=== PATIENT | female | born 2000 | race Asian ===

== ENCOUNTER 2019-11-29 06:56 | Observation (INO) | payer MEDICAID, SELFPAY ==
[2019-11-29] VITALS (19 sets, daily range): BP systolic 101–144; BP diastolic 57–86; PULSE 89–124; RESP 16–20; TEMP 36.6–37.2; O2SAT 96–100; BMI 35.4
--- NOTE | 2019-11-29 | US_ITS ---
WS: [id number] ULTRASOUND PELVIS TECHNIQUE: Transvaginal. CLINICAL INFORMATION: RT HEMORR CYST : No. COMPARISON: None. FINDINGS: Uterus Orientation: Anteverted. Size: 6.3 x 3.5 x 4.1 cm Masses: None. Cervix: 2.7 cm normal Endometrium: Normal. Endometrium thickness: 0.94 cm. Adnexa: Hemorrhagic cyst measuring 1.3 x 1.4 x 1.3 cm Right ovary size: 3.5 x 3.5 x 2.5 cm Left ovary size: 2.6 x 1.6 x 2.8 cm. Free fluid: Moderate amount of free fluid about the right ovary extending into the cul-de-sac with so me internal debris likely due to ruptured hemorrhagic cyst. Other findings: None. US/US transvaginal [id number] IMPRESSION: 1. Presumed recently ruptured right hemorrhagic cyst with moderate amount of f ree fluid/hemorrhagic debris about the right ovary extending into the cul-de-sa c. Free fluid measures approximately 5.1 x 3.2 x 4.1 cm 2. Normal left ovary. 3. Endometrium is normal measuring 9 mm.
--- NOTE | 2019-11-29 07:19 | XR_ITS ---
WS: [id number] CHEST XRAY TECHNIQUE: Portable chest. CLINICAL INFORMATION: chest pain COMPARISON: None. FINDINGS: Heart: Normal cardiac silhouette. Lungs: No acute pulmonary infiltrates. Elevation left hemidiaphragm. Bones: Normal visualized bony structures. XR/XR chest 1V portable [id number] IMPRESSION: Slight elevation left hemidiaphragm. No acute pulmonary infiltrates.
--- NOTE | 2019-11-29 07:20 | ED_ITS ---
HPI - Chest Pain General: Chief Complaint: General Medical Stated Complaint: L SIDE PAIN Time Seen by Provider: 11/29/19 07:02 Source: patient Mode of arrival: ambulatory Limitations: no limitations History of Present Illness: HPI narrative: Patient is a 19-year-old female who presents to the ED today with complaints of left-sided chest pain that began several hours ago after it awoke her from sleep. She describes the pain in her left lower lateral chest. Pain seems to be worse with deep inhalation and lying down. She reports a little nausea this morning with no vomiting. Her bowel movements and urinary habits have been normal. She does not feel short of breath. She states she has had one previous episode of similar symptoms and diagnosed with costochondritis. She has not been coughing. No fevers. MD complaint: chest pain Onset (ago): hour(s) Timing of current episode: episodic and constant Onset: during rest Pain location: left chest Pain radiation: none Severity: moderate Quality: sharp Relieving factors: nothing Exacerbating factors: supine Associated symptoms: Reports nausea; Deny abdominal pain, dyspnea, fever(s), palpitations, syncope or vomiting Treatment prior to arrival: none Risk Factors: Coronary artery disease risk factors: none Thoracic aortic dissection risk factors: none Review of Systems General: Reports: 10 or more systems reviewed and unremarkable except in HPI and below Const: Denies: fever(s), chills, body aches, fatigue or malaise Eyes: Denies: change in vision or blurry vision ENMT: Denies: throat pain, enlarged tonsils or odynophagia Card: Reports: chest pain; Denies: palpitations, irregular heart rhythm, edema, swelling of feet/ankles, lightheadedness, syncope, pre-syncope, dyspnea on exertion, leg pain with exe rtion or acrocyanosis Resp: Reports: pain on inspiration; Denies: dyspnea, productive cough, non-productive cough, change in phlegm color, hemoptysis or chest congestion GI: Reports: nausea; Denies: abdominal pain, vomiting, heartburn or diarrhea : Denies: flank pain, difficulty voiding, dysuria, urinary frequency, urinary urgency or urinary hesitancy Musc: Denies: neck pain, back pain or joint pain Skin/Breast: Denies: rash Neuro: Denies: headache(s), numbness in extremities, weakness in extremities or sensory changes PFSH ED PFSH: Social History Smoking and tobacco status: never smoked Female Reproductive History: Date of last menstrual period: 11/06/19 Physical Exam Const: COMMON NORMALS: no acute distress, patient oriented x3, no limitations and alert GENERAL APPEARANCE: anxious HENMT: COMMON NORMALS: normocephalic and atraumatic HEAD & SCALP: normocephalic and atraumatic Chest: COMMONS NORMALS: normal inspection of the chest and normal palpation of entire chest wall OTHER: pt points to left lateral lower chest wall as area of pain but this does not seem to be reproducible Resp: COMMON NORMALS: normal respiratory effort and clear to auscultation bilaterally AUSCULTATION: clear to auscultation bilaterally Cardio: COMMON NORMALS: regular rhythm RATE: tachycardic RHYTHM: regular rhythm GI: COMMON NORMALS: Normal to inspection, nondistended, normoactive bowel sounds present, Soft to palpation, non-tender, No hepatosplenomegaly present and no masses PALPATION: Yes Soft to palpation and Yes No hepatosplenomegaly present RECTAL EXAM: heme negative stool : COMMON NORMALS: Yes no CVA tenderness BLADDER/KIDNEY EXAM: Yes no CVA tenderness Back/Pelvis: COMMON NORMALS: no CVA tenderness Extremity: COMMON NORMALS: normal to inspection Neuro: COMMON NORMALS: patient oriented x3 SENSORIUM/ORIENTATION: Yes alert Skin: COMMON NORMALS: no rashes or lesions noted GENERAL SKIN EXAM: no rashes or lesions noted Course ED course: Patient's CBC coming back with a critical level of a hemoglobin of 6.3. Patient has no complaints of dark or tarry stools. She is not having any hematochezia or hematemesis. When questioned directly she does report getting short of breath more so than usual and feeling lightheaded/dizzy occasionally but states this has been present over the past few weeks. CBC was redrawn and to confirm abnormal findings. Repeat CBC showed a hemoglobin of 6.0. Patient was typed and screened and will have 2 units of blood transfused. I will scan abdomen to rule out possible splenic injury or other etiologies. Patient states menstrual cycles are irregular but states that she on average bleeds approximately 5 days a month and does not describe the blood loss as heavy. Consultations: Consultation #1: Dr. Navarrete spoke to Dr. Tim for admiss ion Consultation #2: Dr. Rivera regarding hemorrhagic cyst Consultation #3: Dr. Navarrete spoke to Dr. Desai about possibility of exploratory lap who stated there was no indication as based on her CT scan there is no bleeding in her abdomen to account for her hemoglobin Additional Consultation(s): I spoke to Dr. Moreno to inform her of general surgery and GALLERY INTERN consults. We will obtain US of her abdomen as well as manual differential and peripheral smear. Vital Signs: Vital signs: Vital Signs Temperature 98.4 F 11/29/19 11:30 Pulse Rate 91 11/29/19 11:43 Respiratory Rate 17 11/29/19 10:30 Blood Pressure 144/86 11/29/19 11:43 Pulse Oximetry 100 11/29/19 11:43 MDM - Chest Pain 2 MDM Narrative: Medical decision making narrative: CT scan showing small R hemorrhagic cyst with small amount of free fluid in pelvis. Dr. Navarrete spoke to Dr. Tim for admission due to severe anemia and she requested GALLERY INTERN consult. I spoke to Dr. Rivera who did not feel this was relevant to pts hemoglobin of 6.0 especially since she has absolutely no lower pelvic pain. US abdomen and TV ultrasound showing same hemorrhagic R ovarian cyst with fluid collection measuring 5x4cm. I spoke to radiologist Dr. Jalloh who assured me th ere was no significant fluid to account for a hemoglobin of 6.0. Dr. Garrison is reviewing pts peripheral smear currently. Differential is back. Patient is stable to go the floor for further workup by hospitalist and hematology Lab Data: Labs: Lab Results 11/29/19 11/29/19 11/29/19 Range/Units 07:30 07:30 07:30 WBC 13.7 H (4.0-10.0) 10^3/ uL Corrected WBC RBC 4.46 (4.1-5.3) 10^6/u L Hgb 6.3 L* (11.5-15.3) g/dL Hct 26.2 L (37.0-47.0) % MCV 58.7 L (81-99) fL MCH 14.1 L (28.0-34.0) pg MCHC 24.0 L (30.0-36.0) g/dL RDW 19.5 H (12.1-15.1) % Plt Count 786 H (130-400) 10^3/c mm MPV 8.6 (7.4-10.4) fL Gran % Neut % (Auto) 63.9 % Lymph % (Auto) 25.0 % [place] % (Auto) 7.8 % Eos % (Auto) 2.0 % Baso % (Auto) 0.7 % Neut # (Auto) 8.7 H (1.8-7.7) 10^3/u L Lymph # (Auto) 3.4 (0.8-4.8) 10^3/u L [place] # (Auto) 1.1 H (0.2-0.9) 10^3/u L Eos # (Auto) 0.3 (0.0-0.8) 10^3/u L Baso # (Auto) 0.1 (0.0-0.1) 10^3/u L Absolute Gran (aut o) Nucleated RBC % (a uto) 0.3 % Total Counted 100 (0-100) Segmented Neutroph ils 75 % Band Neutrophils 3.0 % Lymphocytes (Manua l) 16 % Monocytes (Manual) 5.0 % Absolute Monocytes 0.7 H (0.1-0.6) 10^3/c mm Eosinophils (Manua l) 1 % Absolute Eosinophi ls 0.1 (0.0-0.7) 10^3/c mm Nucleated RBCs # 0.0 /100WBC Platelet Estimate Increased H (Normal) Hypochromasia 3+ H Poikilocytosis 1+ H Anisocytosis 2+ H Microcytosis 2+ H D-Dimer 0.55 (0-0.59) ug/mIFE U Sodium 139 (136-145) mmol/L Potassium 3.9 (3.5-5.1) mmol/L Chloride 100 (98-107) mmol/L Carbon Dioxide 25 (22-29) mmol/L Anion Gap 17.9 (5-19) BUN 13 (6-20) mg/dL Creatinine 0.6 (0.5-0.9) mg/dL GFR Calculation 126.2 (90-130) mL/min Glucose 113 (65-115) mg/dL Calculated Osmolal ity 285 (285-295) mOsm/k g Calcium 9.8 (8.5-10.5) mg/dL Iron (37-145) ug/dL TIBC mcg/dl % Saturation (20-50) % Unsat Iron Binding (112-347) ug/dL Total Bilirubin 0.3 (0.15-1.2) mg/dL AST 10 (0-32) U/L ALT 7 (0-33) U/L Alkaline Phosphata se 46 (35-105) IU/L Total Protein 8.2 (6.6-8.7) g/dL Albumin 4.4 (3.5-5.2) g/dL Globulin 3.8 (1.3-4.6) g/dL Lipase 45 (13-60) U/L Urine Color (Yellow) Urine Appearance (CLEAR) Urine pH (5-7) Ur Specific Gravit y (1.005-1.030) Urine Protein (Negative) Urine Glucose (UA) (Normal) Urine Ketones (Negative) Urine Blood (Negative) Urine Nitrate (Negative) Urine Bilirubin (NEGATIVE) Urine Urobilinogen (Negative) mg/dL Ur Leukocyte Sylvia ase (Negative) Urine RBC (0-2) /hpf Urine WBC (0-5) /hpf Ur Squamous Epith Cells (0-5) Urine Bacteria (NONE) Urine HCG, Qual (Negative) Blood Type Rho(D) Type Antibody Screen Crossmatch 11/29/19 11/29/19 11/29/19 Range/Units 07:30 07:52 07:55 WBC (4.0-10.0) 10^3/ uL Corrected WBC RBC (4.1-5.3) 10^6/u L Hgb (11.5-15.3) g/dL Hct (37.0-47.0) % MCV (81-99) fL MCH (28.0-34.0) pg MCHC (30.0-36.0) g/dL RDW (12.1-15.1) % Plt Count (130-400) 10^3/c mm MPV (7.4-10.4) fL Gran % Neut % (Auto) % Lymph % (Auto) % [place] % (Auto) % Eos % (Auto) % Baso % (Auto) % Neut # (Auto) (1.8-7.7) 10^3/u L Lymph # (Auto) (0.8-4.8) 10^3/u L [place] # (Auto) (0.2-0.9) 10^3/u L Eos # (Auto) (0.0-0.8) 10^3/u L Baso # (Auto) (0.0-0.1) 10^3/u L Absolute Gran (aut o) Nucleated RBC % (a uto) % Total Counted (0-100) Segmented Neutroph ils % Band Neutrophils % Lymphocytes (Manua l) % Monocytes (Manual) % Absolute Monocytes (0.1-0.6) 10^3/c mm Eosinophils (Manua l) % Absolute Eosinophi ls (0.0-0.7) 10^3/c mm Nucleated RBCs # /100WBC Platelet Estimate (Normal) Hypochromasia Poikilocytosis Anisocytosis Microcytosis D-Dimer (0-0.59) ug/mIFE U Sodium (136-145) mmol/L Potassium (3.5-5.1) mmol/L Chloride (98-107) mmol/L Carbon Dioxide (22-29) mmol/L Anion Gap (5-19) BUN (6-20) mg/dL Creatinine (0.5-0.9) mg/dL GFR Calculation (90-130) mL/min Glucose (65-115) mg/dL Calculated Osmolal ity (285-295) mOsm/k g Calcium (8.5-10.5) mg/dL Iron 8 L (37-145) ug/dL TIBC 390 mcg/dl % Saturation 2.0 L (20-50) % Unsat Iron Binding 382 H (112-347) ug/dL Total Bilirubin (0.15-1.2) mg/dL AST (0-32) U/L ALT (0-33) U/L Alkaline Phosphata se (35-105) IU/L Total Protein (6.6-8.7) g/dL Albumin (3.5-5.2) g/dL Globulin (1.3-4.6) g/dL Lipase (13-60) U/L Urine Color Yellow (Yellow) Urine Appearance Sl hazy (CLEAR) Urine pH 5 (5-7) Ur Specific Gravit y 1.025 (1.005-1.030) Urine Protein Neg (Negative) Urine Glucose (UA) Norm (Normal) Urine Ketones Negative (Negative) Urine Blood Neg (Negative) Urine Nitrate Negative (Negative) Urine Bilirubin Neg (NEGATIVE) Urine Urobilinogen Norm (Negative) mg/dL Ur Leukocyte Sylvia ase Negative (Negative) Urine RBC None (0-2) /hpf Urine WBC Rare (0-5) /hpf Ur Squamous Epith Cells 0-4 H (0-5) Urine Bacteria 1+ H (NONE) Urine HCG, Qual Negative (Negative) Blood Type Rho(D) Type Antibody Screen Crossmatch 11/29/19 11/29/19 11/29/19 Range/Units 08:45 08:45 08:45 WBC 12.5 H (4.0-10.0) 10^3/ uL Corrected WBC Rn Urgent Care RBC 4.11 (4.1-5.3) 10^6/u L Hgb 6.0 L* (11.5-15.3) g/dL Hct 24.3 L (37.0-47.0) % MCV 59.1 L (81-99) fL MCH 14.6 L (28.0-34.0) pg MCHC 24.7 L (30.0-36.0) g/dL RDW 19.2 H (12.1-15.1) % Plt Count 711 H (130-400) 10^3/c mm MPV 8.3 (7.4-10.4) fL Gran % Rn Urgent Care Neut % (Auto) 75.6 % Lymph % (Auto) 14.8 % [place] % (Auto) 6.9 % Eos % (Auto) 1.1 % Baso % (Auto) 0.9 % Neut # (Auto) 9.4 H (1.8-7.7) 10^3/u L Lymph # (Auto) 1.8 (0.8-4.8) 10^3/u L [place] # (Auto) 0.9 (0.2-0.9) 10^3/u L Eos # (Auto) 0.1 (0.0-0.8) 10^3/u L Baso # (Auto) 0.1 (0.0-0.1) 10^3/u L Absolute Gran (aut o) Rn Urgent Care Nucleated RBC % (a uto) 0.3 % Total Counted (0-100) Segmented Neutroph ils % Band Neutrophils % Lymphocytes (Manua l) % Monocytes (Manual) % Absolute Monocytes (0.1-0.6) 10^3/c mm Eosinophils (Manua l) % Absolute Eosinophi ls (0.0-0.7) 10^3/c mm Nucleated RBCs # 0.0 /100WBC Platelet Estimate (Normal) Hypochromasia Poikilocytosis Anisocytosis Microcytosis D-Dimer (0-0.59) ug/mIFE U Sodium (136-145) mmol/L Potassium (3.5-5.1) mmol/L Chloride (98-107) mmol/L Carbon Dioxide (22-29) mmol/L Anion Gap (5-19) BUN (6-20) mg/dL Creatinine (0.5-0.9) mg/dL GFR Calculation (90-130) mL/min Glucose (65-115) mg/dL Calculated Osmolal ity (285-295) mOsm/k g Calcium (8.5-10.5) mg/dL Iron (37-145) ug/dL TIBC mcg/dl % Saturation (20-50) % Unsat Iron Binding (112-347) ug/dL Total Bilirubin (0.15-1.2) mg/dL AST (0-32) U/L ALT (0-33) U/L Alkaline Phosphata se (35-105) IU/L Total Protein (6.6-8.7) g/dL Albumin (3.5-5.2) g/dL Globulin (1.3-4.6) g/dL Lipase (13-60) U/L Urine Color (Yellow) Urine Appearance (CLEAR) Urine pH (5-7) Ur Specific Gravit y (1.005-1.030) Urine Protein (Negative) Urine Glucose (UA) (Normal) Urine Ketones (Negative) Urine Blood (Negative) Urine Nitrate (Negative) Urine Bilirubin (NEGATIVE) Urine Urobilinogen (Negative) mg/dL Ur Leukocyte Sylvia ase (Negative) Urine RBC (0-2) /hpf Urine WBC (0-5) /hpf Ur Squamous Epith Cells (0-5) Urine Bacteria (NONE) Urine HCG, Qual (Negative) Blood Type Cancelled B Positive Rho(D) Type Cancelled Positive Antibody Screen Cancelled Negative Crossmatch See Detail See Detail Imaging Data^: CXR: Radiologist's impression: [address] [address] XRay Report Signed Patient: Alivia Tony Unit #: [id number] : 2000 Age/Sex: 19 / F ADM Date: 11/29/19 Loc: ER Room/Bed: Attending Dr: Ordering Provider/Ordering MD: Denise Mancuso Date of Service: 11/29/19 Procedure(s): XR chest 1V portable [id number] Accession Number(s): [id number] Report Number: [id number] WS: [id number] CHEST XRAY TECHNIQUE: Portable chest. CLINICAL INFORMATION: chest pain COMPARISON: None. FINDINGS: Heart: Normal cardiac silhouette. Lungs: No acute pulmonary infiltrates. Elevation left hemidiaphragm. Bones: Normal visualized bony structures. XR/XR chest 1V portable [id number] IMPRESSION: Slight elevation left hemidiaphragm. No acute pulmonary infiltrates. Dictated By: Juan Carlos Jalloh MD Signed By: Juan Carlos Jalloh MD Signed Date/Time: 11/29/19830 DD/ 7 US abdomen: Radiologist's impression: [address] [address] Ultrasound Report Signed Patient: Alivia Tony #: [id number] : 2000Acct#:[id number] Age/Sex: 19 / FADM Date: 11/29/19 Loc: [facility]/Bed: [facility] Attending Dr: Temi Tim DO Ordering Provider/Ordering MD: Denise Mancuso Date of Service: 11/29/19 Procedure(s): US abdomen limited 53234 Accession Number(s): [id number] Report Number: [id number] WS: [id number] ULTRASOUND ABDOMEN LIMITED CLINICAL INFORMATION: LUQ evaluation isai spleen; also TV to eval for R hemorr cyst COMPARISON: None. FINDINGS: Liver Size: Normal Spleen Splenomegaly: None. Craniocaudal length: 10.3 cm. Left kidney: Normal. Hydronephrosis: None. Size: 10.9 cm x 6.0 cm x 5.0 cm. Abdominal aorta and IVC Visualized portions are normal. Ascites: None. US/US abdomen limited [id number] IMPRESSION: Normal left upper quadrant ultrasound. Spleen is normal. Dictated By:Juan Carlos Jalloh MD Signed By:Juan Carlos Jalloh MDSigned Date/Time:11/29/19 1308 DD/ 1250 CT Abd/Pel: Radiologist's impression: [facility] [address] [place] [address] CT Scan Report Signed Patient: Alivia Tony Unit #: [id number] : 2000 Age/Sex: 19 / F ADM Date: 11/29/19 Loc: ER Room/Bed: Attending Dr: Ordering Provider/Ordering MD: Denise Mancuso Date of Service: 11/29/19 Procedure(s): CT abdomen pelvis w con* [id number] Accession Number(s): [id number] Report Number: [id number] WS: [id number] CT ABDOMEN PELVIS TECHNIQUE: Contrast-enhanced CT of the abdomen and pelvis with coronal and sagittal reformatted images. CLINICAL INFORMATION: L sided upper abdominal/ lower chest pain; severe anemia COMPARISON: None. DLP: 1480.[address] scans at [facility] use at least one of these dose optimization techniques: automated exposure control; mA and/or kV adjustment per patient size (includes targeted exams where dose is matched to clinical indication); or iterative reconstruction. FINDINGS: Mild diffuse fatty infiltration infiltration of the liver. Normal spleen. Pancreas is normal. Adrenal glands are normal. No hydronephrosis. Normal renal parenchymal enhancement. Lung bases are well aerated. Stomach and proximal small bowel appear normal. Normal caliber abdominal aorta. Peripheral enhancing right ovarian hemorrhagic or corpus luteum cyst measuring 1.9 x 1.6 cm. Surrounding fluid about the right ovary with small amount of free fluid in the cul-de-sac. A few prominent lymph nodes in the right lower quadrant likely reactive. Appendix is normal. Normal portal vein and splenic vein. Gallbladder is contracted. No abdominal or pelvic lymphadenopathy. Normal lumbar spine. CT/CT abdomen pelvis w con* [id number] IMPRESSION: 1. Peripheral enhancing right ovarian hemorrhagic or corpus luteum cyst measuring 1.6 x 1.9 cm with surrounding fluid. Associated free fluid in the cul-de-sac. This can be followed up in one to 2 menstrual cycles with ultrasound. 2. Appendix is normal and decompressed. 3. Normal renal parenchymal enhancement. No hydronephrosis. 4. No other significant findings. Dictated By: Juan Carlos Jalloh MD Signed By: Juan Carlos Jalloh MD Signed Date/Time: 11/29/19 1009 DD/ 1005 US TV: Radiologist's impression: [address] [address] Ultrasound Report Signed Patient: Alivia Tony #: [id number] : 2000Acct#:[id number] Age/Sex: Date: 11/29/19 Loc: [facility]/Bed: [facility] Attending [address]: Temi Tim DO Ordering Provider/Ordering MD: Denise Mancuso Date of Service: 11/29/19 Procedure(s): US transvaginal 05895 Accession Number(s): [id number] Report Number: [id number] WS: [id number] ULTRASOUND PELVIS TECHNIQUE: Transvaginal. CLINICAL INFORMATION: RT HEMORR CYST : No. COMPARISON: None. FINDINGS: Uterus Orientation: Anteverted. Size: 6.3 x 3.5 x 4.1 cm Masses: None. Cervix: 2.7 cm normal Endometrium: Normal. Endometrium thickness: 0.94 cm. Adnexa: Hemorrhagic cyst measuring 1.3 x 1.4 x 1.3 cm Right ovary size: 3.5 x 3.5 x 2.5 cm Left ovary size: 2.6 x 1.6 x 2.8 cm. Free fluid: Moderate amount of free fluid about the right ovary extending into the cul-de-sac with some internal debris likely due to ruptured hemorrhagic cyst. Other findings: None. US/US transvaginal [id number] IMPRESSION: 1. Presumed recently ruptured right hemorrhagic cyst with moderate amount of free fluid/hemorrhagic debris about the right ovary extending into the cul-de-sac. Free fluid measures approximately 5.1 x 3.2 x 4.1 cm 2. Normal left ovary. 3. Endometrium is normal measuring 9 mm. Dictated By:Juan Carlos Jalloh MD Signed By:Juan Carlos Jalloh MDSigned Date/Time:11/29/19 1317 Discharge Plan Discharge Patient Disposition: Admitted As Inpatient Admit Provider: Temi Tim Clinical Impression: Microcytic anemia, Hemorrhagic cyst of right ovary Condition: Stable Interventions: ED Discharge Assessment Last Done: 11/29/19 11:43 ED Charges Last Done: 11/29/19 11:43 Coding Level of Care Code ED Tier Lift Truck Operator for Chg Fwd Exam Comprehensive
[2019-11-29 07:41] LABS: Basophils # 0.1 10^3/uL (0.0-0.1); Basophils % 0.7 %; Eosinophils # 0.3 10^3/uL (0.0-0.8); Hematocrit 26.2 % (37.0-47.0); Lymphocytes # 3.4 10^3/uL (0.8-4.8); Mean Corpuscular Hemoglobin 14.1 pg (28.0-34.0); Mean Corpuscular Volume 58.7 fL (81-99); Mean Platelet Volume 8.6 fL (7.4-10.4); Monocytes # 1.1 10^3/uL (0.2-0.9); Monocytes % 7.8 %; Neutrophils # 8.7 10^3/uL (1.8-7.7); Neutrophils % 63.9 %; Nucleated Red Blood Cells % 0.3 %; Platelet Count 786 10^3/cmm (130-400); Red Blood Count 4.46 10^6/uL (4.1-5.3); Red Cell Distribution Width 19.5 % (12.1-15.1); White Blood Count 13.7 10^3/uL (4.0-10.0)
[2019-11-29] MEDS: ketorolac 60 mg/2 mL INJ 30 MG IVP (07:50)
[2019-11-29 07:54] LABS: Alanine Aminotransferase 7 U/L (0-33); Albumin Level 4.4 g/dL (3.5-5.2); Alkaline Phosphatase 46 IU/L (35-105); Anion Gap 17.9 (5-19); Aspartate Amino Transferase 10 U/L (0-32); Blood Urea Nitrogen 13 mg/dL (6-20); Calcium 9.8 mg/dL (8.5-10.5); Carbon Dioxide 25 mmol/L (22-29); Chloride 100 mmol/L (98-107); Globulin 3.8 g/dL (1.3-4.6); Glomerular Filtration Rate 126.2 mL/min (90-130); Glucose 113 mg/dL (65-115); Lipase 45 U/L (13-60); Osmolality Calculated 285 mOsm/kg (285-295); Potassium 3.9 mmol/L (3.5-5.1); Sodium 139 mmol/L (136-145); Total Bilirubin 0.3 mg/dL (0.15-1.2); Total Protein 8.2 g/dL (6.6-8.7)
[2019-11-29 08:07] LABS: Add Urine Microscopic? YES; Bacteria Urine 1+; Bilirubin Urine Neg (NEGATIVE); Blood Urine Neg (Negative); Glucose Urine UA Norm (Normal); Ketones Urine Negative (Negative); Leukocyte Esterase Urine Negative (Negative); Nitrate Urine Negative (Negative); Protein Urine Neg (Negative); Specific Gravity, Urine 1.025 (1.005-1.030); Squamous Epithelial Cell Urine 0-4 (0-5); Urine Appearance SL Hazy (CLEAR); Urine Color Yellow (Yellow); Urobilinogen Urine Norm (Negative); WBC Urine RARE /hpf (0-5); pH Urine 5 (5-7)
[2019-11-29 08:08] LABS: Add Urine Culture? No
[2019-11-29 08:10] LABS: Hemoglobin 6.3 g/dL (11.5-15.3)
[2019-11-29 08:13] LABS: D Dimer 0.55 ug/mIFEU (0-0.59)
--- NOTE | 2019-11-29 08:13 | PC.NURSE ---
KAIT Arnold informed about hemoglobin 6.3.
[2019-11-29 08:50] LABS: Basophils # 0.1 10^3/uL (0.0-0.1); Basophils % 0.9 %; Eosinophils # 0.1 10^3/uL (0.0-0.8); Eosinophils % 1.1 %; Hematocrit 24.3 % (37.0-47.0); Lymphocytes # 1.8 10^3/uL (0.8-4.8); Lymphocytes % 14.8 %; Mean Corpuscular HGB Conc 24.7 g/dL (30.0-36.0); Mean Corpuscular Hemoglobin 14.6 pg (28.0-34.0); Mean Corpuscular Volume 59.1 fL (81-99); Mean Platelet Volume 8.3 fL (7.4-10.4); Monocytes # 0.9 10^3/uL (0.2-0.9); Monocytes % 6.9 %; Neutrophils # 9.4 10^3/uL (1.8-7.7); Neutrophils % 75.6 %; Nucleated Red Blood Cells % 0.3 %; Platelet Count 711 10^3/cmm (130-400); Red Blood Count 4.11 10^6/uL (4.1-5.3); Red Cell Distribution Width 19.2 % (12.1-15.1); White Blood Count 12.5 10^3/uL (4.0-10.0)
--- NOTE | 2019-11-29 09:02 | CT_ITS ---
WS: [id number] CT ABDOMEN PELVIS TECHNIQUE: Contrast-enhanced CT of the abdomen and pelvis with coronal and sagittal reformatted image s. CLINICAL INFORMATION: L sided upper abdominal/ lower chest pain; severe anemia COMPARISON: None. DLP: 1480.[address] scans at [facility] use at least one of these dose optimization techniques: automat ed exposure control; mA and/or kV adjustment per patient size (includes targeted exams where dose is matched to clinical indication); or iterative reconstruction. FINDINGS: Mild diffuse fatty infiltration infiltration of the liver. Normal spleen. Pancreas is normal. Adrenal glands are normal. No hydronephrosis. Normal renal parenchymal enhancement. Lung bases are we ll aerated. Stomach and proximal small bowel appear normal. Normal caliber abdominal aorta. Peripheral enhancing right ovarian hemorrhagic or corpus luteum cyst measuring 1.9 x 1.6 cm. Surround ing fluid about the right ovary with small amount of free fluid in the cul-de-sac. A few prominent ly mph nodes in the right lower quadrant likely reactive. Appendix is normal. Normal portal vein and spl enic vein. Gallbladder is contracted. No abdominal or pelvic lymphadenopathy. Normal lumbar spine. CT/CT abdomen pelvis w con* [id number] IMPRESSION: 1. Peripheral enhancing right ovarian hemorrhagic or corpus luteum cyst measur ing 1.6 x 1.9 cm with surrounding fluid. Associated free fluid in the cul-de-sa c. This can be followed up in one to 2 menstrual cycles with ultrasound. 2. Appendix is normal and decompressed. 3. Normal renal parenchymal enhancement. No hydronephrosis. 4. No other significant findings.
[2019-11-29] MEDS: sodium chloride 0.9% 1,000 ML 999 ML IV (09:22)
[2019-11-29] MEDS: iohexol 300 mg/mL 100 mL Btl IV (09:45)
--- NOTE | 2019-11-29 09:53 | PC.NURSE ---
pt back from CT scan by stretcher with tech
--- NOTE | 2019-11-29 11:06 | US_ITS ---
WS: [id number] ULTRASOUND ABDOMEN LIMITED CLINICAL INFORMATION: LUQ evaluation isai spleen; also TV to eval for R hemorr cyst COMPARISON: None. FINDINGS: Liver Size: Normal Spleen Splenomegaly: None. Craniocaudal length: 10.3 cm. Left kidney: Normal. Hydronephrosis: None. Size: 10.9 cm x 6.0 cm x 5.0 cm. Abdominal aorta and IVC Visualized portions are normal. Ascites: None. US/US abdomen limited [id number] IMPRESSION: Normal left upper quadrant ultrasound. Spleen is normal.
[2019-11-29 11:37] LABS: Absolute Eosinophils 0.1 10^3/cmm (0.0-0.7); Absolute Segmented Neutrophil 10.2 10/cmm (1.6-7.1); Band Neutrophils Absolute 0.4 10^3/cmm (0.0-1.2); Eosinophils 1 %; Lymphocytes 16 %; Monocytes Absolute 0.7 10^3/cmm (0.1-0.6); Segmented Neutrophils 75 %; Total Cells Counted 100 (0-100)
[2019-11-29 11:38] LABS: Hypochromasia 3+; Poikilocytosis 1+
[2019-11-29 11:39] LABS: Anisocytosis 2+; Microcytosis 2+; Platelet Estimate Increased (Normal)
[2019-11-29 11:45] LABS: LAB Peripheral Smear Sent for Review
--- NOTE | 2019-11-29 12:15 | PC.NURSE ---
portable ultrasound at bedside
[2019-11-29 12:48] LABS: Iron 8 ug/dL (37-145); Total Iron Binding Capacity 390 mcg/dl; Unsaturated Iron Binding 382 ug/dL (112-347)
[2019-11-29] MEDS: sodium chloride 0.9% (100 ml) 100 ML 50 ML (15:18)
[2019-11-29] MEDS: acetaminophen 325 mg Tablet 650 MG PO (15:51)
--- NOTE | 2019-11-29 16:23 | PM.HP ---
Providers/Chief Complaint Admitting Physician: Temi Tim DO Primary Care Provider: Rob Benito MD Chief Complaint: ANEMIA FROM UNKNOWN CAUSE History of Present Illness Alivia Tony is a 19 year old female that presented to the emergency department today for dizziness. She stated that she has been having the dizziness over the past couple of weeks. She stated that it began to progress to the concern that she came into the ER today for further evaluation. She stated that she was also having some pain in the left upper quadrant that was worse with deep inspiration. She states that she was evaluated in the ER and told she had severe anemia. She denies any concern for bleeding. She stated that the first day of her last menstrual period was 11/02/2019, they are typically irregular but occur every 4 to 5 weeks, stated that they are heavy for the first couple of days but then become normal, no concern for heavier than average bleeding. Patient reports that she did have an episode last year of melanotic stools, reported black and tarry like stools for a few days but then those resolved. She stated that she takes NSAIDs occasionally but denies any regular NSAID use. She stated that her last regular NSAID use was in the first couple of months of this year when she was diagnosed with costochondritis and was given NSAIDs for 14 days. She did not have any melanotic stools at that time and denies any bright red blood per rectum. She denies any fevers or chills, no sick contacts, no cough or sputum production, no hemoptysis. She denies any weight loss, no weight gain, no night sweats. Patient reports that she does not have any diarrhea or constipation, no epigastric discomfort. She reports that she typically will take in carbohydrates but does eat some meats, not a vegetarian or vegan. Patient was seen and evaluated in the emergency department noted to have concern for anemia and transfused 1 unit of packed red blood cells with a second unit ordered. She had imaging of the abdomen which showed peripheral enhancing right ovarian hemorrhagic or corpus luteal cyst with surrounding fluid, associated free fluid in the cul-de-sac, this was discussed with ROUTE SERVICE REPRESENTATIVE on-call and reported that due to minimal fluid would not likely be contributing to the anemia and no acute concern reported. Review of Systems Const: Denies: fever(s) or chills Eyes: Denies: change in vision ENMT: Denies: nasal congestion Card: Denies: chest pain, palpitations or edema Resp: Denies: dyspnea, productive cough or hemoptysis GI: Denies: abdominal pain, nausea, vomiting, diarrhea, constipation, hematochezia or melena : Denies: dysuria or hematuria Musc: Denies: extremity pain or muscle cramps Skin/Breast: Denies: rash or new lesions Neuro: Reports: dizziness; Denies: headache(s) Psych: Denies: anxiety or depression Endo: Denies: polyuria or hot flashes Edgardo/Lymph: Denies: easy bruising or easy bleeding Medications/Allergies Home Medications Medication Instructions Recorded Confirmed Last Taken Type No Known Home Medications 11/29/19 11/29/19 Unknown History Allergies Allergy/AdvReac Type Severity Reaction Status Date / Time No Known Allergies Allergy Verified 11/29/19 07:20 PFSH Acute PFSH: Surgical History (Updated 11/29/19 @ 16:32 by Temi Tim DO) History of wisdom tooth extraction Family History (Updated 11/29/19 @ 16:33 by Temi Tim DO) Mother Cancer Ovarian Father CAD (coronary artery disease) Sister Anemia Social History Smoking and tobacco status: never smoked Female Reproductive History: Date of last menstrual period: 11/01/19 Supplemental PFSH Information: No past medical history Vitals/I&O/Wt Last Vital Signs Temp 97.8 F 11/29/19 15:46 Pulse 93 11/29/19 15:46 Resp 20 H 11/29/19 15:46 BP 106/69 11/29/19 15:46 Pulse Ox 99 11/29/19 15:46 11/29/19 11/29/19 11/29/19 06:59 14:59 22:59 Intake Total 1000 / 1000 0 / 1000 Balance 1000 / 1000 0 / 1000 Weight last 48 hrs Weight 108.862 kg Physical Exam Const: COMMON NORMALS: patient oriented x3 and alert GENERAL APPEARANCE: cooperative ORIENTATION/CONSCIOUSNESS: Yes awake, Yes oriented to person, Yes oriented to place and Yes oriented to time HENMT: COMMON NORMALS: normocephalic and atraumatic HEAD & SCALP: normocephalic and atraumatic Eye: COMMON NORMALS: Equal, round and reactive pupils present PUPIL: Yes Equal, round and reactive pupils present Neck/C-Spine: COMMON NORMALS: supple GENERAL: Yes normal visual inspection Resp: COMMON NORMALS: normal respiratory effort and clear to auscultation bilaterally EFFORT & INSPECTION: Yes able to speak in complete sentences AUSCULTATION: clear to auscultation bilaterally, no rhonchi and no wheezes Cardio: COMMON NORMALS: regular rate, regular rhythm and No murmurs present (Cardio) RATE: regular rate RHYTHM: regular rhythm GI: COMMON NORMALS: Soft to palpation and non-tender INSPECTION: No abdominal distension AUSCULTATION: Yes normoactive bowel sounds PALPATION: Yes Soft to palpation : COMMON NORMALS: Yes no CVA tenderness BLADDER/KIDNEY EXAM: Yes no CVA tenderness Back/Pelvis: COMMON NORMALS: no CVA tenderness Extremity: COMMON NORMALS: no clubbing, cyanosis or edema and no calf tenderness Neuro: COMMON NORMALS: patient oriented x3, CN's II-XII intact bilaterally, moves all extremities and no focal motor deficits SENSORIUM/ORIENTATION: Yes alert, Yes oriented to person, Yes oriented to place and Yes oriented to time SPEECH: speech normal Psych: COMMON NORMALS: mental status grossly normal and cooperative Skin: COMMON NORMALS: no rashes or lesions noted GENERAL SKIN EXAM: no rashes or lesions noted Data : 11/29/19 08:45 11/29/19 07:30 A&P Assessment and plan (1) Microcytic anemia: Microcytic anemia with concern for iron deficiency Started on iron supplementation Transfuse 2 units of packed red blood cells Recommend EGD and colonoscopy, potentially in the outpatient setting, however with significant anemia discussed with Dr. Desai for consultation and will follow up with recommendations Patient reports history of melanotic stools last year, no further recurrence of this but she does have NSAID use for 2 weeks straight in the beginning of this year. Will start on PPI We will check FOBT Status: Acute (2) Hemorrhagic cyst of right ovary: With minimal free fluid, not likely contributing to anemia This was discussed with ROUTE SERVICE REPRESENTATIVE on-call while patient was in the ED, no acute concerns identified Status: Acute Additional A&P Information Left-sided pain: Patient reports left-sided chest pain with inspiration, will further evaluate with chest x-ray. Ultrasound of the abdomen performed and no evidence of any acute changes to the spleen with normal appearance and no splenomegaly. Patient reported melanotic stools with what sounds to be concerning for a GI bleed approximately 1 year ago, she reports that her last regular NSAID use was for a period of 2 weeks in the beginning of this year should, she cannot recall if it was July, August, or September when she was seen by her primary care provider. Further testing as noted above. Would recommend EGD and colonoscopy, discussed with Dr. Desai for consultation and will follow up with recommendations DVT prophylaxis: SCDs, no pharmacologic prophylaxis due to concern for anemia Diet: Regular diet, NPO at midnight Attestations Medical Necessity Statement*: Patient placed on observation due to concern for microcytic anemia. Expected stay less than 2 midnights Coding Level of Care Code Acute Hand Cigar Making Supervisor for Chg Fwd Diagnoses Microcytic anemia D50.9 Hemorrhagic cyst of right ovary N83.201
--- NOTE | 2019-11-29 16:36 | XRR_ITS ---
PROCEDURE INFORMATION: Exam: XR Chest, 2 Views Exam date and time: 11/29/2019 5:35 PM Age: 19 years old Clinical indication: Other: Left upper rib/chest pain; Patient HX: Pain is worse on inspiration; Additional info: Pleuritic pain, L chest TECHNIQUE: Imaging protocol: XR of the chest Views: 2 views. COMPARISON: CR XR chest 1V portable [id number] 11/29/2019 7:47 AM FINDINGS: Lungs: Unremarkable. No consolidation. Pleural space: Unremarkable. No pleural effusion. No pneumothorax. Heart/Mediastinum: Unremarkable. No cardiomegaly. Bones/joints: Unremarkable. XR/XR chest 2V* [id number] IMPRESSION: No acute findings. Unchanged exam.
--- NOTE | 2019-11-29 17:15 | P.CONIM_ITS ---
Providers/Reason For Consult Consulting Physican/Specialty*: Gigi Desai MD Reason for Consult*: Anemia with history of melena Attending Physician: Temi Tim DO Primary Care Provider: Rob Benito MD History of Present Illness History of Present Illness Chief Complaint: My left side hurts History of present illness: Alivia Tony is a 19 year old female presents to the emergency department with history of left sided torso discomfort, patient denies any trauma, was found on her blood work low H&H with MCV of 59 and was tested negative for occult blood in stools, patient reports history of melena back in last summer that was subsided with conservative measures as a primary care provider prescribed for her some medications likely antacid. She denies history of hematemesis or bleeding per rectum On the CT scan was found to have: 1. Peripheral enhancing right ovarian hemorrhagic or corpus luteum cyst measuring 1.6 x 1.9 cm with surrounding fluid. Associated free fluid in the cul-de-sac. This can be followed up in one to 2 menstrual cycles with ultrasou nd. 2. Appendix is normal and decompressed. 3. Normal renal parenchymal enhancement. No hydronephrosis. 4. No other significant findings. Left upper quadrant ultrasound showed Normal left upper quadrant ultrasound. Spleen is normal. General surgery was consulted for further evaluation due to the patient's iron deficiency anemia and concern for underlying GI pathology to explain her anemia. Review of Systems General: Reports: 10 or more systems reviewed and unremarkable except in HPI a nd below Meds/Allergies Home Medications and Allergies Home Medications Medication Instructions Recorded Confirmed Last Taken Type No Known Home Medications 11/29/19 11/29/19 Unknown History Allergies Allergy/AdvReac Type Severity Reaction Status Date / Time No Known Allergies Allergy Verified 11/29/19 07:20 Current Medications Current Medications Generic Name Dose Route Start Last Admin Trade Name Freq PRN Reason Stop Dose Admin Acetaminophen 650 mg 11/29/19 15:22 11/29/19 15:51 Tylenol PO 650 mg Q6H PRN Administration Mild/Mod Pain Or Temp >/= 101 PFSH Acute PFSH: Surgical History (Updated 11/29/19 @ 16:32 by Temi Tim DO) History of wisdom tooth extraction Family History (Updated 11/29/19 @ 16:33 by Temi Tim DO) Mother Cancer Ovarian Father CAD (coronary artery disease) Sister Anemia Social History Smoking and tobacco status: never smoked Female Reproductive History: Date of last menstrual period: 11/01/19 Vitals/I&O/Wt Last Vital Signs Temp 97.8 F 11/29/19 15:46 Pulse 94 11/29/19 16:57 Resp 20 H 11/29/19 15:46 BP 106/69 11/29/19 15:46 Pulse Ox 100 11/29/19 16:57 11/29/19 11/29/19 11/29/19 06:59 14:59 22:59 Intake Total 1000 / 1000 0 / 1000 Balance 1000 / 1000 0 / 1000 Weight last 48 hrs Weight 240 lb Physical Exam Const: COMMON NORMALS: no acute distress and patient oriented x3 GENERAL APPEARANCE: cooperative ORIENTATION/CONSCIOUSNESS: Yes awake, Yes oriented to person, Yes oriented to place and Yes oriented to time HENMT: COMMON NORMALS: normocephalic HEAD & SCALP: normocephalic Eye: COMMON NORMALS: Equal, round and reactive pupils present and no scleral icterus PUPIL: Yes Equal, round and reactive pupils present Lymph: LYMPHATIC: no lymphadenopathy noted Chest: COMMONS NORMALS: normal inspection of the chest Resp: COMMON NORMALS: normal respiratory effort and clear to auscultation bilaterally AUSCULTATION: clear to auscultation bilaterally Cardio: COMMON NORMALS: S1 normal heart sound present and S2 normal heart sound present; negative for No murmurs present (Cardio) HEART SOUNDS: S1 normal heart sound present and S2 normal heart sound present GI: COMMON NORMALS: Soft to palpation; negative for No hepatosplenomegaly present INSPECTION: Yes normal to inspection PALPATION: Yes Soft to palpation, No Firmness to palpation present (GI), No Tenderness to palpation present (GI), No Guarding due to palpation p resent (GI), No Rigid due to palpation and No No hepatosplenomegaly present Neuro: COMMON NORMALS: patient oriented x3 SENSORIUM/ORIENTATION: Yes oriented to person, Yes oriented to place and Yes oriented to time Psych: COMMON NORMALS: mental status grossly normal Skin: COMMON NORMALS: no rashes or lesions noted GENERAL SKIN EXAM: no rashes or lesions noted A&P Assessment and plan (1) History of melena: After thorough history physical examination and reviewing the chart and images with my personal interpretation, I did rehabilitation services counselor the patient for diagnostic EGD and colonoscopy, perhaps the EGD would cover the potential etiology of the melena yet the colonoscopy to rule out any potential underlying cause for her anemia in additional to the EGD. If the above or negative, I recommendation to obtain a capsule endoscopy down the road. I did talk with the patient's dad Dom over the phone and I did explain for him the above and I did give him the option to discuss with his daughter to determine the timing of performing both the EGD and colonoscopy within the same hospitalization versus as an outpatient, and then they will let me know tomorrow morning rounds if that is the case we will start colon prep tomorrow with the plan to perform EGD and colonoscopy Monday otherwise it will be as an outpatient. Blood transfusion per protocol Medical causes of anemia should be ruled out and hematology consultation should be initiated down the road as an outpatient Assurance and education All questions have been answered and all concerns have been addressed to patient 's satisfaction. Status: Acute Consult Attestations Medical Necessity Statement: Per hospitalist Time Spent in Patient Care: 16 - 35 minutes (>than 50% of time spent in counselling and/or direct pt care on unit) . Coding Level of Care Code Acute Hydroblaster for Chg Fwd Exam Comprehensive Diagnoses History of melena Z87.19
[2019-11-29] MEDS: ferrous sulfate EC 325 mg Tablet PO (17:53)
[2019-11-29] MEDS: pantoprazole DR 40 mg Tablet PO (17:53)
[2019-11-29 18:25] LABS: H. Pylori IgG Antibody Negative (Negative)
[2019-11-29 19:02] LABS: Hematocrit 29.5 % (37.0-47.0); Hemoglobin 8.1 g/dL (11.5-15.3)
[2019-11-30] VITALS: BP 122/80; PULSE 72; RESP 18; TEMP 36.5; O2SAT 96
[2019-11-30 01:15] LABS: Hematocrit 27.8 % (37.0-47.0); Hemoglobin 7.5 g/dL (11.5-15.3)
[2019-11-30 01:25] LABS: INR 1.07 (0.8-1.2)
[2019-11-30 03:55] VITALS: BP 102/64; PULSE 104; RESP 18; TEMP 36.6; O2SAT 98
--- NOTE | 2019-11-30 07:05 | P.PN_ITS ---
Subjective Subjective: Interval history: No acute events overnight and no evidence of hematemesis or hematochezia Patient received total of 2 units of packed RBCs and continues to have low H&H just got better but still low. Patient continues to have stable vital signs no evidence of hypotension or tachycardia Vitals/I&O/Wt Last Vital Signs Temp 97.9 F 11/30/19 03:55 Pulse 104 H 11/30/19 03:55 Resp 18 11/30/19 03:55 BP 102/64 11/30/19 03:55 Pulse Ox 98 11/30/19 03:55 11/29/19 11/30/19 11/30/19 22:59 06:59 14:59 Intake Total 120 / 1120 Balance 120 / 1120 Weight last 48 hrs Weight 241 lb 8 oz Weight 240 lb Physical Exam Narrative: EXAM NARRATIVE: Patient is conscious alert oriented X3 BMI 36 Head and neck examination PERRLA no masses no cervical lymphadenopathy no jaundice Abdomen nontender nondistended soft no organomegaly guarding or rigidity/no signs of peritonitis Extremities no cyanosis no clubbing no edema Data : 11/30/19 07:00 11/30/19 07:00 A&P Assessment and plan (1) History of melena: After further discussion with the patient she elected to have her EGD and colonoscopy done as an outpatient not within the same hospitalization, I respected her wishes and we will plan to have it done as an outpatient. There is no evidence of GI bleeding, from surgical standpoint of view patient can have regular diet Blood transfusion per protocol Medical causes of anemia should be ruled out and hematology consultation should be initiated down the road as an outpatient, to clearly that the patient reports that her older sister has iron deficiency anemia. Assurance and education All questions have been answered and all concerns have been addressed to patient's satisfaction. Status: Acute Attestations Medical Necessity Statement*: Per hospitalist service Time Spent in Patient Care: 16 - 35 minutes (>than 50% of time spent in counselling and/or direct pt care on unit) . Coding Level of Care Code Acute Health Science Specialist for Nikolai Del [facility]illo Diagnoses History of melena Z87.19
[2019-11-30 07:07] LABS: Basophils # 0.1 10^3/uL (0.0-0.1); Eosinophils # 0.3 10^3/uL (0.0-0.8); Eosinophils % 2.7 %; Hematocrit 30.8 % (37.0-47.0); Lymphocytes # 3.5 10^3/uL (0.8-4.8); Lymphocytes % 27.7 %; Mean Corpuscular Hemoglobin 17.4 pg (28.0-34.0); Monocytes % 7.9 %; Neutrophils # 7.6 10^3/uL (1.8-7.7); Neutrophils % 60.5 %; Nucleated Red Blood Cells % 0.3 %; Platelet Count 669 10^3/cmm (130-400); Red Cell Distribution Width 25.9 % (12.1-15.1); White Blood Count 12.6 10^3/uL (4.0-10.0)
[2019-11-30 07:20] VITALS: BP 109/71; PULSE 82; RESP 19; TEMP 36.9; O2SAT 99
[2019-11-30 07:20] LABS: Anion Gap 15.2 (5-19); Blood Urea Nitrogen 11 mg/dL (6-20); Calcium 9.8 mg/dL (8.5-10.5); Carbon Dioxide 22 mmol/L (22-29); Chloride 105 mmol/L (98-107); Glomerular Filtration Rate 126.2 mL/min (90-130); Glucose 87 mg/dL (65-115); Osmolality Calculated 281 mOsm/kg (285-295); Potassium 4.2 mmol/L (3.5-5.1); Sodium 138 mmol/L (136-145)
[2019-11-30] MEDS: pantoprazole DR 40 mg Tablet PO (08:33)
[2019-11-30] MEDS: ferrous sulfate EC 325 mg Tablet PO (08:33)
[2019-11-30 12:00] VITALS: BP 113/75; PULSE 93; RESP 19; TEMP 36.5; O2SAT 99
[2019-11-30 12:10] LABS: Hematocrit 27.5 % (37.0-47.0); Hemoglobin 7.5 g/dL (11.5-15.3)
[2019-11-30 14:05] VITALS: BP 113/75; PULSE 93; RESP 19; TEMP 36.5; O2SAT 99
--- NOTE | 2019-11-30 14:07 | PM.DCS ---
Discharge Providers Date of Admission: 11/29/19 10:51 Date of Discharge: November 30, 2019 Attending Provider at Admission: Temi Tim DO Attending Provider at Discharge: Jameel Denny Primary Care Provider: Rob Benito MD Diagnoses at Discharge Discharge Diagnosis (1) History of melena: Status: Acute Reason for Visit Reason for Visit: Reason For Visit: ANEMIA FROM UNKNOWN CAUSE Hospital Course Hospital Course: 19-year-old lady was assessed in the emergency department for dizziness, found to have symptomatic anemia with hemoglobin of 6, for which received a unit of PBC transfusion with good response with hemoglobin remaining stable at 7.5. She reports irregular, initially heavy menses, and recently also has been taking NSAIDs due to costochondritis, and her other complaint of sharp pain in the left posterior axillary lower chest, worse with inspiration. She reports having melanotic stools although it was sometime last year. Imaging of the abdomen revealed incidentally a right ovarian hemorrhagic cyst which per discussion with BEARING INSPECTOR reportedly was of no immediate concern. She will be referred for outpatient follow-up. Chest x-ray has remained unremarkable. Perhaps slight left hemidiaphragm elevation. Consider follow-up imaging. On laboratory studies found with microcytic anemia, with severe iron deficiency, for which was started on iron. Due to concern for GI bleeding she will be continued on PPI. She and surgery have discussed extensively undecided to schedule outpatient endoscopic evaluation per her preference. She has already received a blood transfusion, but consider additional evaluation of her severe symptomatic anemia on a nonurgent basis once some time has passed since the transfusion. Given severity, as well as concern for family history she is referred for additional assessment by hematology. She is currently feeling well, happy to return home. She understands to seek medical attention in case her left lower chest discomfort gets any worse or she encounters any other worrisome symptoms. Physical Exam Const: COMMON NORMALS: no acute distress and patient oriented x3 HENMT: COMMON NORMALS: oropharynx normal Neck/C-Spine: COMMON NORMALS: no JVD Resp: COMMON NORMALS: normal respiratory effort and clear to auscultation bilaterally AUSCULTATION: clear to auscultation bilaterally Cardio: COMMON NORMALS: no JVD, regular rhythm, S1 normal heart sound present, S2 normal heart sound present and No murmurs present (Cardio) RHYTHM: regular rhythm HEART SOUNDS: S1 normal heart sound present and S2 normal heart sound present GI: COMMON NORMALS: Normal to inspection, nondistended, normoactive bowel sounds present, Soft to palpation and non-tender PALPATION: Yes Soft to palpation Extremity: COMMON NORMALS: no joint enlargement and no pedal edema Neuro: COMMON NORMALS: patient oriented x3 and moves all extremities Skin: COMMON NORMALS: no rashes or lesions noted GENERAL SKIN EXAM: no rashes or lesions noted Discharge Data Data Completed and Pending: Completed Studies During Hospitalization Category Date Time Status CT abdomen pelvis w con* [id number] Urge nt Cat Scan 11/29/19 09:02 Completed XR chest 1V grabiel ble [id number] Urgent Exams 11/29/19 07:19 Completed XR chest 2V* [id number] Routine Exams 11/29/19 16:36 Completed US abdomen limite d [id number] Urgent Ultrasound 11/29/19 11:06 Completed US transvaginal 7 [id number] Urgent Ultrasound 11/29/19 Completed Pending at discharge Category Date Time Status Immunochemical Fe kathi OCB Routine Lab 11/29/19 16:34 Uncollected Labs from last 24 hours 11/30/19 11/30/19 11/30/19 11:55 07:00 07:00 WBC 12.6 H RBC 4.60 Hgb 7.5 L 8.0 L Hct 27.5 L 30.8 L MCV 67.0 L D MCH 17.4 L D MCHC 26.0 L D RDW 25.9 H Plt Count 669 H MPV 9.0 Neut % (Auto) 60.5 Lymph % (Auto) 27.7 [place] % (Auto) 7.9 Eos % (Auto) 2.7 Baso % (Auto) 1.0 Neut # (Auto) 7.6 Lymph # (Auto) 3.5 [place] # (Auto) 1.0 H Eos # (Auto) 0.3 Baso # (Auto) 0.1 Nucleated RBC % (a uto) 0.3 Nucleated RBCs # 0.0 PT INR Sodium 138 Potassium 4.2 Chloride 105 Carbon Dioxide 22 Anion Gap 15.2 BUN 11 Creatinine 0.6 GFR Calculation 126.2 Glucose 87 Calculated Osmolal ity 281 L Calcium 9.8 H. pylori IgG Anti body Blood Type Rho(D) Type Antibody Screen Crossmatch 11/30/19 11/30/19 11/29/19 01:11 01:11 18:49 WBC RBC Hgb 7.5 L 8.1 L D Hct 27.8 L 29.5 L MCV MCH MCHC RDW Plt Count MPV Neut % (Auto) Lymph % (Auto) [place] % (Auto) Eos % (Auto) Baso % (Auto) Neut # (Auto) Lymph # (Auto) [place] # (Auto) Eos # (Auto) Baso # (Auto) Nucleated RBC % (a uto) Nucleated RBCs # PT 14.30 H INR 1.07 Sodium Potassium Chloride Carbon Dioxide Anion Gap BUN Creatinine GFR Calculation Glucose Calculated Osmolal ity Calcium H. pylori IgG Anti body Blood Type Rho(D) Type Antibody Screen Crossmatch 11/29/19 11/29/19 08:45 07:30 WBC RBC Hgb Hct MCV MCH MCHC RDW Plt Count MPV Neut % (Auto) Lymph % (Auto) [place] % (Auto) Eos % (Auto) Baso % (Auto) Neut # (Auto) Lymph # (Auto) [place] # (Auto) Eos # (Auto) Baso # (Auto) Nucleated RBC % (a uto) Nucleated RBCs # PT INR Sodium Potassium Chloride Carbon Dioxide Anion Gap BUN Creatinine GFR Calculation Glucose Calculated Osmolal ity Calcium H. pylori IgG Anti body Negative Blood Type B Positive Rho(D) Type Positive Antibody Screen Negative Crossmatch See Detail Vitals: Last Vital Signs Temp 97.7 F 11/30/19 14:05 Pulse 93 11/30/19 14:05 Resp 19 H 11/30/19 14:05 BP 113/75 11/30/19 14:05 Pulse Ox 99 11/30/19 14:05 Discharge Plan Discharge Patient Disposition: Home, Self-Care Condition: Stable Prescriptions: New pantoprazole 40 mg Tablet,Delayed Release (Dr/Ec) 40 mg PO DAILY Qty: 30 RF: 0 ferrous sulfate 325 mg (65 mg iron) Tablet,Delayed Release (Dr/Ec) 325 mg PO EVERY OTHER DAY Qty: 15 RF: 0 Discharge Orders: Discharge Order (Routine); Ordered 11/30/19 Ordered By: Jameel Denny Referrals: Gigi Desai MD [Physician] - 4-7 days (Please call Monday to set up a follow up appintment for an endoscopy) Nain Rivera MD [Physician] - 2 weeks (Please call Monday to set up an appointment) Rob Benito MD [Primary Care Provider] - 4-7 days (Please call Monday to set up a follow up appointment) Sukhjinder Garrison MD [Hospitalist] - 2 weeks (Please call Monday to set up an appointment to see Dr. Garrison for severe symptomatic anemia. Microcytic anemia. Iron deficiency. Iron deficiency in sister. ) Discharge Diet: Usual diet Discharge Activity: Increase activity as tolerated Patient Instructions: Iron Supplements (By mouth), Gastrointestinal Bleeding (GEN), Iron Deficiency Anemia (GEN) Activity Restrictions/Additional Instructions: Avoid any NSAIDs. If you notice any bleeding, dark black stools, or other abnormal symptoms, please seek medical attention. Tylenol is okay for pain as needed in left side rib cage. Use capsaicin cream, icy hot, BenGay, or other topical ointment as needed, try heat or cold compresses to find what may work well. If you experience worsening or persistent pain, severe shortness of breath, high fevers, or other abnormal symptoms, please seek medical attention without delay. Discussed with your primary care doctor consideration of follow-up image of your chest. You have received a blood transfusion in the hospital, so some of the other studies are not possible at this time, however, please discuss with your primary care doctor arrangements for additional assessment by blood studies that may include peripheral smear, reticulocyte count and other studies as appropriate. Discharge Attestations Time Spent in Discharge Care*: greater than 30 min Quality Metrics Clinical Quality Measures During this hospital stay, did patient experience: None Coding Level of Care Code Acute Post Tronic Machine Operator for [facility] Fwd Diagnoses History of melena Z87.19
--- NOTE | 2019-11-30 14:44 | PC.CHAP ---
Pastoral Care Encounter/Spiritual Assessment Type of Contact [] Declined film and video editor visit [] Patient/Family/Request visit [] Outpatient visit [] Follow-up visit [] Physician referral [] Code/Alert [X] Routine visit [] Staff referral [] Actively dying [] Patient sleeping [] Family support [] [] Out of room [] Palliative care [] [] Receiving care in room [] Pre-surgical visit [] Trauma [] Long length of stay [] ICU visit [] Other: Relational/Emotional Strength [] Patient feels connected with others/family/visitors/staff [] Distress [] Loneliness/isolation [] Abandonment Spirituality of Patient [] Person of Sveta [] Attends Mandaeism of their Sveta [] Believes in Prayer [] Reads Bible or Tenriism materials [] There are Spiritual issues to be addressed [place] Interventions [] Prayer [] Active listening [] Non-anxious presence [] Spiritual/emotional support [] Crisis/trauma care [] Spiritual counseling [] Bereavement support [] Provided bereavement packet [] Provided Bible/devotional materials [] Provided toy/stuffed animal, coloring book to patient or family member [] Provided Communion [] Anointing/[place] [] Salvation [] Completed spiritual assessment [] Other: Impact on Illness or Injury [] Angry [] Fearful [] Anxious [] Often cries [] Exhaustion [] Unable to work [] Unable to attend yarsani [] Unable to walk/stand [] Unable to read [] Unable to drive [] Unable to eat/drink [] Unable to sleep [] Unable to be with family [] Patient intubated [] Other: Summary Time spent with patient
[2019-11-30 14:45] VITALS: BP 113/75; PULSE 93; RESP 19; TEMP 36.5; O2SAT 99
== END 2019-11-30 15:26 | disposition home or self-care (01) ==
LOC: ER 11:26 → MEDSURG 11:27
PROVIDERS: Physician Assistant; Admitting Provider Family Medicine; Family Provider Family Medicine; PCP Family Medicine; Visit Provider Internal Medicine
DX: D50.9 Iron deficiency anemia, unspecified (principal); N83.201 Unspecified ovarian cyst, right side; Z87.19 Personal history of other diseases of the digestive system; Z82.49 Family history of ischemic heart disease and other diseases of the circulatory system; Z80.41 Family history of malignant neoplasm of ovary
CPT/HCPCS: 12345; 36415; 36430; 71045; 71046; 74177; 76705; 76830; 80048; 80053; 81001; 81025; 83540; 83550; 83690; 85007; 85014; 85018; 85025; 85378; 85610; 86677; 86850; 86900; 86920; 96360; 96361; 96374; 96375; 99283; 99285; G0378; J1885; J7030; P9016; Q9967

== ENCOUNTER 2019-12-18 09:59 | Outpatient (CLI) | payer MEDICAID, SELFPAY ==
[2019-12-18 10:47] LABS: Basophils # 0.1 10^3/uL (0.0-0.1); Basophils % 1.2 %; Eosinophils # 0.2 10^3/uL (0.0-0.8); Eosinophils % 2.5 %; Hematocrit 31.1 % (37.0-47.0); Hemoglobin 8.4 g/dL (11.5-15.3); Lymphocytes # 1.8 10^3/uL (0.8-4.8); Lymphocytes % 21.6 %; Mean Corpuscular Volume 66.7 fL (81-99); Mean Platelet Volume 8.2 fL (7.4-10.4); Monocytes # 0.7 10^3/uL (0.2-0.9); Monocytes % 8.8 %; Neutrophils # 5.6 10^3/uL (1.8-7.7); Neutrophils % 65.7 %; Nucleated Red Blood Cells % 0 %; Platelet Count 811 10^3/cmm (130-400); Red Blood Count 4.66 10^6/uL (4.1-5.3); Red Cell Distribution Width 28.4 % (12.1-15.1); White Blood Count 8.4 10^3/uL (4.0-10.0)
--- NOTE | 2019-12-19 13:49 | ONC CON_ITS ---
Dr. Ward New Patient Note Patient: Alivia Tony Unit #: [id number]: [id number] Dicatated By: Jaydon Ward M.D.Date of Visit: Dec 18, 2019 Onc MED New Patient/Consult Referring Physician: Dr. Jameel Denny M.D. History of Present Illness: Ms. Alivia Tony, is a 19-year-old female with history of progressive weakness and fatigue, shortness of breath and palpitation on exertion went to [facility] on November 29, 2019 and found to have hemoglobin around 6 g and she was given unit of packed RBC with that her hemoglobin improved to 7.5 g As per patient before this admission she was not aware of anemia in fact last year in December 2018 she went to [facility] with bleeding per rectum at that time her hemoglobin was normal and she was treated conservatively. And since then she has been having dark-colored stools and off and on rectal bleed and also having irregular and off and on heavy menses and recently also start taking nonsteroidal for costochondritis. Chest x-ray showed no abnormality except slight left hemidiaphragm elevation for which she underwent CT scan of abdomen and pelvis on November 29, 2019 which showed peripheral enhancing right ovarian hemorrhagic or corpus luteum cyst measuring 1.6 x 1.9 cm with surrounding fluid. No other abnormality seen. Patient denies any peripheral numbness, denies any jaundice, denies any weight loss, denies any abdominal pain, denies any history of gastric surgery, denies any hematuria, denies any night sweats, denies any weight loss. Because of history of dark-colored stools and bleeding per rectum, GI was consulted, Dr. Desai is planning for EGD and colonoscopy on December 25, 2019. Past Medical History: Ms. Tony's medical history is unremarkable. Past Surgical History: Ms. Tony's surgical/procedural history consists of wisdom teeth extraction. Medications: Calcium 2 Tablet Tablet, chewable Oral daily, Ferrous Sulfate 1 Tablet (of 325 (65 fe) mg) Oral b.i.d., Pantoprazole Sodium 1 Tablet (of 40 mg) Tablet, enteric coated Oral daily Allergies: No Known Allergies. Social History: Ms. Tony is single and she is an unknown. Ms. Tony has never smoked. She has no history of drinking. Ms. Tony reports the following support systems: lives with spouse, significant other, family, or friends, supportive family/friends willing to assist with needs, and adequate transportation available for expected visits. Her diet consists of regular meals. She indicates her activity level as: regular exercise. Family History: Ms. Tony's father is alive: coronary artery disease. Ms. Tony's maternal grandmother is : cancer of unknown origin. Review Of Symptoms: Constitutional - Appetite is poor and weight is decreasing. No fever, night sweats, or hot flashes. Energy level is poor, ENMT - No sinus congestion/drainage. No mouth sores. No sore throat or difficulty swallowing, Hematologic/Lymphatic - No abnormal bruising or bleeding, Respiratory - Positive for shortness of breath. No cough. No pleuritic pain or hemoptysis, Cardiovascular - No angina pain. No palpitations, Gastrointestinal - No nausea or vomiting. No heartburn or acid reflux. No diarrhea. Positive for constipation and dark stools (iron supplement), Genitourinary (F) - No dysuria or hematuria. No urinary frequency. No urgency or incontinence, Musculoskeletal - No joint or bone pain, Neurologic - Positive for hx of headache, no dizziness. No numbness or tingling. No other focal neurologic symptoms, Psychiatric - No anxiety. Positive for depression. No insomnia. Vital Signs: Performed on Dec 18, 2019 11:05: 0, 31.22 (HIGH), 2.11 sq.m, 69.00 in, 100 %, 78 /min, 18 /min, 119/68 mm(hg), 97.8 F (LOW), and 211.4 lbs (HIGH). Performance Status: 0 - Fully active, able to carry on all predisease activities without restrictions. (ECOG) Physical Examination: ENMT - No mouth sores, no thrush, no jaundice, Respiratory - Lungs are clear, Cardiovascular - Regular rate and rhythm of heart, Abdomen - Soft, bowel sounds present, nontender, Extremities - No visible edema or rash. Lab/Imaging: Most recent lab results are not available for this patient. Impression: Iron deficiency anemia probably multifactorial including chronic blood loss due to heavy menses or off and on GI bleeding other possibility could be malabsorption. Thrombocytosis, most likely due to iron deficiency anemia or chronic blood loss Generalized weakness fatigue, dyspnea on exertion due to severe iron deficiency anemia diagnosed on November 29, 2019 with a hemoglobin around 6 g status post 1 unit of packed RBC, now on oral iron twice a day since then. Right ovarian hemorrhagic cyst, Plan: Discussed with patient regarding her labs from today shows white blood count 8.4 hemoglobin 8.4 hematocrit 31.1 platelets 811,000 MCV 66.7 anemia work-up done on November 29, 2019 showed iron 8, normal being 37-1 45 iron saturation 2%, normal being 20 to 50%. TIBC 390 Clinically, patient is doing well, now somewhat more energetic compared to at the time of recent admission to hospital, tolerating oral iron twice a day well and her hemoglobin is improving. At this point we will continue with same, for better iron absorption patient was advised to take it on testing with orange juice as vitamin C promote absorption. And she will return to clinic in 1 month with CBC and Thrombocytosis, most likely due to severe iron deficiency and chronic blood loss, should resolve with improvement in iron stores and resolution of anemia, if not we will consider evaluation iron studies, if her hemoglobin continues to improve along with iron stores, will continue with oral iron supplement for 4 to 6 months. She is scheduled for EGD/colonoscopy on December 25, 2019, will follow with results As well as right ovarian cyst is concerned, as per patient she was seen by Dr. Rivera [facility], and no work-up is needed at this point. Signed By: Jaydon Ward M.D. <<Signature on File>>
== END 2019-12-18 10:00 | disposition home or self-care (01) ==
PROVIDERS: PCP Family Medicine; Visit Provider Internal Medicine Hematology & Oncology
DX: D50.9 Iron deficiency anemia, unspecified (principal); D72.820 Lymphocytosis (symptomatic); K92.1 Melena; R53.83 Other fatigue; R53.1 Weakness; N83.201 Unspecified ovarian cyst, right side
CPT/HCPCS: 85025; 99203; 99214

== ENCOUNTER 2019-12-25 09:16 | Day surgery (SDC) | payer MEDICAID, SELFPAY ==
[2019-12-24 10:54] VITALS: BMI 31.1
[2019-12-25 09:34] VITALS: BP 118/70; PULSE 96; RESP 18; TEMP 36.8; O2SAT 94
[2019-12-25 09:45] LABS: OR HCG Qualitative Urine Negative (Negative)
[2019-12-25] MEDS: sodium chloride 0.9% 1,000 ML 30 ML IV (09:46)
--- NOTE | 2019-12-25 10:26 | P.ANESASSM_ITS ---
Pre-Anesthetic Assessment Pre-Anesthetic Assessment: Height/Weight: Height 1.75 m Weight 95.708 kg Temp Pulse Resp BP Pulse Ox 98.3 F 96 18 118/70 94 12/25/19 09:34 12/25/19 09:34 12/25/19 09:34 12/25/19 09:34 12/25/19 09:34 Preop Diagnosis: History of melena associated with anemia Proposed Procedure: Operation Date: 12/25/19 10:00 Proposed Procedures p EGD [id number]/Z87.19/D50.9(Not Applicable) - Gigi Desai MD s Colonoscopy(Not Applicable) - Gigi Desai MD Was Beta Farrukh taken within 24 hours: N/A Last intake: Intake Last Liquid Date 12/24/19 Last Liquid Time 23:50 Last Solid Date 12/23/19 Last Solid Time 10:00 Last Intake: 23:55 Social: Social History: No alcohol and No tobacco Exam: Pre-Anes Outpt Exam: alert, oriented x 3, clear to auscultation bilaterally and regular rate & rhythm Airway: Submandibular: WNL Cervical ROM: WNL MP: 1 Dentition: Full History/ROS: No significant history except as noted Anesthetic Plan: ASA status: 1 Anesthesia: Anesthesia Evaluation and MAC Risk of > 500 ml blood loss (7ml/kg in children): No Meds/Allergies Current Medications: Current Medications Generic Name Dose Route Start Last Admin Trade Name Freq PRN Reason Stop Dose Admin Sodium Chloride 1,000 mls @ 30 ml s/hr 12/25/19 09:45 12/25/19 09:46 Sodium Chloride 0.9% IV 12/26/19 09:44 30 mls/hr .Q24H JAMEL Administration PFSH Anesthesia PFSH: Medical History (Updated 12/17/19 @ 18:55 by Nain Rivera MD) Iron deficiency anemia Surgical History History of wisdom tooth extraction Family History Mother Cancer Ovarian Father CAD (coronary artery disease) Sister Anemia Denies family history of Anesthesia complication Bleeding disorder Social History Smoking and tobacco status: never smoked Alcohol intake: never Household members: family Marital status: Single Current occupational status: unemployed History of recent travel: Yes Details: Up state by [place] Out of state: No Out of country: No Female Reproductive History: Date of last menstrual period: 11/01/19 Data Anesthesia Other Labs: Laboratory Results - last 48 hr 12/25/19 09:35 Urine HCG, Qual Negative Cardiac Studies: No Data to Display
--- NOTE | 2019-12-25 10:29 | W.PM.OPSUD ---
Surgery/Procedure H&P Update DATE OF PROCEDURE: December 25, 2019 DATE H&P PERFORMED: 12/12/19 H&P UPDATE INFORMATION: I have reviewed H&P completed within last 30 days, I have examined patient prior to procedure and No changes to prior documentation PREOP DIAGNOSIS: History of melena associated with anemia PRIMARY INDICATION FOR PROCEDURE: The same PLANNED PROCEDURE: Operation Date: 12/25/19 10:00 Proposed Procedures p EGD [id number]/Z87.19/D50.9(Not Applicable) - Gigi Desai MD s Colonoscopy(Not Applicable) - Gigi Desai MD
--- NOTE | 2019-12-25 10:56 | SUR.OPER ---
4mL ink injected into the transverse colon mass bx site
[2019-12-25 11:00] VITALS: BP 89/55; PULSE 73; RESP 16; TEMP 36.3; O2SAT 100
[2019-12-25 11:16] VITALS: BP 91/62; PULSE 69; RESP 18; TEMP 36.4; O2SAT 99
--- NOTE | 2019-12-25 11:19 | ANE.PACU2 ---
Inpatient post-anesthesia follow up: Airway intact: Yes Vital signs: Temperature 97.3 F Pulse Rate 73 Respiratory Rate 16 Blood Pressure 89/55 Pulse Oximetry 100 Oxygen Delivery Me thod Nasal Cannula Oxygen Flow Rate 3 Fraction of Inspir ed Oxygen Hydration adequate: Yes Nausea and vomiting: No Pain level: 1 Mental status: Baseline
[2019-12-25 12:01] LABS: Carcinoembryonic Antigen 32.2 ng/mL (0.0-4.7)
[2019-12-26 09:04] LABS: H. Pylori / CLO Test Negative
== END 2019-12-25 11:55 | disposition home or self-care (01) ==
PROVIDERS: PCP Family Medicine; Visit Provider Surgery
PROC: 0DJ08ZZ Inspection of Upper Intestinal Tract, Via Natural or Artificial Opening Endoscopic (ICD-10-PCS; CPT 43235; principal; 2019-12-25 10:00)
PROC: 0DJD8ZZ Inspection of Lower Intestinal Tract, Via Natural or Artificial Opening Endoscopic (ICD-10-PCS; CPT 45378; 2019-12-25 10:00)
DX: Z87.19 Personal history of other diseases of the digestive system (principal); C18.4 Malignant neoplasm of transverse colon; D50.9 Iron deficiency anemia, unspecified; K92.1 Melena; K29.70 Gastritis, unspecified, without bleeding
CPT/HCPCS: 12345; 43239; 45384; 82378; 84703; 87077; 88305; J2704; J7030

== ENCOUNTER 2019-12-31 08:59 | Outpatient (CLI) | payer MEDICAID, SELFPAY ==
--- NOTE | 2020-01-02 17:41 | ONC FU_ITS ---
Dr. Ward follow up note Patient: Alivia Tony Unit #: [id number]: 2000 Dicatated By: Jaydon Ward M.D.Date of Visit:Dec 31, 2019 Onc Med Follow-up/Prog Note History of Present Illness: Ms. Alivia Tony, is a 19-year-old female with history of progressive weakness and fatigue, shortness of breath and palpitation on exertion went to [facility] on November 29, 2019 and found to have hemoglobin around 6 g and she was given unit of packed RBC with that her hemoglobin improved to 7.5 g As per patient before this admission she was not aware of anemia in fact last year in December 2018 she went to [facility] with bleeding per rectum at that time her hemoglobin was normal and she was treated conservatively. And since then she has been having dark-colored stools and off and on rectal bleed and also having irregular and off and on heavy menses and recently also start taking nonsteroidal for costochondritis. Chest x-ray showed no abnormality except slight left hemidiaphragm elevation for which she underwent CT scan of abdomen and pelvis on November 29, 2019 which showed peripheral enhancing right ovarian hemorrhagic or corpus luteum cyst measuring 1.6 x 1.9 cm with surrounding fluid. No other abnormality seen.Except mild diffuse fatty infiltration of the liver Patient denies any peripheral numbness, denies any jaundice, denies any weight loss, denies any abdominal pain, denies any history of gastric surgery, denies any hematuria, denies any night sweats, denies any weight loss. Because of history of dark-colored stools and bleeding per rectum, GI was consulted, Dr. Duke Performed colonoscopy on December 25, 2019 which showed in the mid transverse colon, completely obstructing large size, fungating, friable, malignant appearing circumferential, villous 3 cm x 6 cm mass and mass was not bleeding but biopsy was obtained which confirmed moderately differentiated invasive adenocarcinoma Came for follow-up, denies any specific complaints except intolerance to oral iron e.g. epigastric cramps, indigestion and mild nausea. Otherwise no abdominal pain, no melena or hematochezia, no jaundice. Medications: Ferrous Sulfate 1 Tablet (of 325 (65 fe) mg) Oral b.i.d., Pantoprazole Sodium 1 Tablet (of 40 mg) Tablet, enteric coated Oral daily Allergies: No Known Allergies. Review of Systems: Constitutional - Appetite is poor and weight is decreasing. No fever, night sweats, or hot flashes. Energy level is poor, ENMT - No sinus congestion/drainage. No mouth sores. No sore throat or difficulty swallowing, Hematologic/Lymphatic - No abnormal bruising or bleeding, Respiratory - Positive for shortness of breath. No cough. No pleuritic pain or hemoptysis, Cardiovascular - No angina pain. No palpitations, Gastrointestinal - No nausea or vomiting. No heartburn or acid reflux. No diarrhea. Positive for constipation and dark stools (iron supplement), Genitourinary (F) - No dysuria or hematuria. No urinary frequency. No urgency or incontinence, Musculoskeletal - No joint or bone pain, Neurologic - Positive for hx of headache, no dizziness. No numbness or tingling. No other focal neurologic symptoms, Psychiatric - No anxiety. Positive for depression. No insomnia. Vital Signs: Performed on Dec 31, 2019 09:57 Height - 69.00 in Weight - 208.4 lbs (LOW) BSA - 2.10 sq.m BMI - 30.78 (HIGH) Temperature - 97.8 F (LOW) Pulse - 80 /min Respiration - 18 /min BP - 111/67 mm(hg) O2 Sat - 100 % Pain - 6 Performance Status: 0 - Fully active, able to carry on all predisease activities without restrictions. (ECOG) Physical Examination: ENMT - No mouth sores, no thrush no jaundice, Respiratory - Lungs are clear, Cardiovascular - Regular rate and rhythm of heart, Abdomen - Soft, bowel sounds present, Extremities - No edema or rash. 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 Generalized weakness fatigue, dyspnea on exertion due to severe iron deficiency anemia diagnosed on November 29, 2019 with a hemoglobin around 6 g status post 1 unit of packed RBC, now on oral iron twice a day since then. Right ovarian hemorrhagic cyst,Seen by [facility], Dr. Rivera and no work-up rather observation recommended Plan: Discussed with patient regarding her colonoscopy findings which showed mid transverse colon, completely obstructing, large size, fungating, friable, malignant appearing, circumferential, villous 3 cm x 6 cm mass , mass was not bleeding, biopsy confirmed moderately differentiated invasive adenocarcinoma and case was discussed with Dr. duke, who will consider barium enema and planning for surgical resection. Discussed with patient as per patient her mother had history of endometrial carcinoma and her mother's brother had history of colon cancer. We will consider genetic testing to rule out genetic disorder Predisposing to colon cancer in such a young person Patient will return to clinic 2 weeks after surgery for further discussion As far as iron deficiency anemia is concerned, patient is intolerance to oral iron, will consider parenteral iron Injectafer 750 mg IV x1 Signed By: Jaydon Ward M.D. <<Signature on File>>
== END 2019-12-31 09:00 | disposition home or self-care (01) ==
LOC: ONCMED 09:05
PROVIDERS: PCP Family Medicine; Visit Provider Internal Medicine Hematology & Oncology
DX: C18.4 Malignant neoplasm of transverse colon (principal); D50.9 Iron deficiency anemia, unspecified; N83.201 Unspecified ovarian cyst, right side; K76.0 Fatty (change of) liver, not elsewhere classified; Z80.49 Family history of malignant neoplasm of other genital organs; Z80.0 Family history of malignant neoplasm of digestive organs
CPT/HCPCS: 99214

== ENCOUNTER 2020-01-03 08:02 | Outpatient (CLI) | payer MEDICAID, SELFPAY ==
--- NOTE | 2020-01-03 08:00 | FL_ITS ---
WS: [id number] BARIUM ENEMA SINGLE CONTRAST. HISTORY: K63.89 Other specified diseases of intestine COMPARISON: CT abdomen 11/29/2019 FLUOROSCOPY TIME: 1.8 minutes. Single contrast barium was instilled via gravity by rectal tube. There is good distention of the colo n with contrast. Known stricture in the mid descending colon with apple core appearance is again iden tified. There are no additional colonic lesions. No polyps or masses. Presacral space is normal. On t he postcontrast imaging the appendix fills and is normal. FL/FL barium enema [id number] IMPRESSION: 1. Focal stricture likely secondary to a neoplastic lesion in the descending c olon. 2. No additional lesions or obstruction.
== END 2020-01-03 08:03 | disposition home or self-care (01) ==
LOC: RAD 08:06
PROVIDERS: PCP Family Medicine; Visit Provider Surgery
DX: K63.89 Other specified diseases of intestine (principal); D37.4 Neoplasm of uncertain behavior of colon
CPT/HCPCS: 74270

== ENCOUNTER 2020-01-06 16:01 | Inpatient (IN) | payer MEDICAID, SELFPAY ==
[2020-01-03 13:40] VITALS: BMI 30.7
[2020-01-06] VITALS (18 sets, daily range): BP systolic 112–127; BP diastolic 65–85; PULSE 62–109; RESP 14–20; TEMP 36.1–36.7; O2SAT 96–100
[2020-01-06 08:08] LABS: OR HCG Qualitative Urine Negative (Negative)
[2020-01-06] MEDS: sodium chloride 0.9% 1,000 ML 30 ML IV (08:21)
[2020-01-06] MEDS: heparin 5,000 unit/mL INJ 1 mL 2000 UNIT SUBCUT (08:22)
--- NOTE | 2020-01-06 08:23 | P.ANESASSM_ITS ---
Pre-Anesthetic Assessment Pre-Anesthetic Assessment: Height/Weight: Height 1.75 m Weight 94.347 kg Temp Pulse Resp BP Pulse Ox 97.6 F 109 H 20 H 127/85 100 01/06/20 08:03 01/06/20 08:03 01/06/20 08:03 01/06/20 08:03 01/06/20 08:03 Preop Diagnosis: Descending colon cancer Proposed Procedure: Operation Date: 01/06/20 10:00 Proposed Procedures p Laparoscopic Sigmoidectomy(Not Applicable) - Gigi Desai MD Familial anesthetic complications: None Was Beta Farrukh taken within 24 hour s: N/A Last intake: Intake Last Liquid Date 01/05/20 Last Liquid Time 22:00 Last Solid Date 01/04/20 Last Solid Time 19:00 Social: Social History: No alcohol and No tobacco Exam: Pre-Anes Outpt Exam: alert, oriented x 3, clear to auscultation bilaterally and regular rate & rhythm Airway: Cervical ROM: WNL MP: 1 Dentition: Full Pulmonary: Pulmonary: None reported CV/HEM: CV/HEM: None reported : : None reported Hepatic: Hepatic: None reported GI: Comments: adenocrrcinoma Metabolic: Metabolic: Morbid obesity Musc/skel: Musc/skel: None reported Neuropsych: Neuropsych: None reported Anesthetic Plan: ASA status: 3 Anesthesia: General Risk of > 500 ml blood loss (7ml/kg in children): Yes, adequate IV access and fluids planned Meds/Allergies Current Medications: Current Medications Generic Name Dose Route Start Last Admin Trade Name Freq PRN Reason Stop Dose Admin Sodium Chloride 1,000 mls @ 30 ml s/hr 01/06/20 08:00 01/06/20 08:21 Sodium Chloride 0.9% IV 01/07/20 07:59 30 mls/hr .Q24H JAMEL Administration PFSH Anesthesia PFSH: Medical History Iron deficiency anemia Surgical History History of wisdom tooth extraction Family History Mother Cancer Ovarian Father CAD (coronary artery disease) Sister Anemia Denies family history of Anesthesia complication Bleeding disorder Social History Smoking and tobacco status: never smoked Alcohol intake: never Household members: family Marital status: Single Current occupational status: unemployed History of recent travel: Yes Details: Up state by [place] Out of state: No Out of country: No Female Reproductive History: Date of last menstrual period: 12/10/19 Data Anesthesia Other Labs: Laboratory Results - last 48 hr 01/06/20 08:01 Urine HCG, Qual Negative Cardiac Studies: No Data to Display
--- NOTE | 2020-01-06 08:34 | W.PM.OPSUD ---
Surgery/Procedure H&P Update DATE OF PROCEDURE: January 06, 2020 DATE H&P PERFORMED: 01/02/20 H&P UPDATE INFORMATION: I have reviewed H&P completed within last 30 days, I have examined patient prior to procedure and Changes to prior documentation as noted here (Barium enema was done last Monday and demonstrated the stricture associated with the growth at the descending colon the report and the findings was discussed in depth with the patient and her father prior to surgery and both agreed to proceed accordingly, I did explain for them that I will add possible flex sigmoidoscopy for completion purposes) PREOP DIAGNOSIS: Descending colon cancer PRIMARY INDICATION FOR PROCEDURE: The same PLANNED PROCEDURE: Operation Date: 01/06/20 10:00 Proposed Procedures p Laparoscopic Sigmoidectomy(Not Applicable) - Gigi Desai MD
[2020-01-06] MEDS: piperacillin-tazobactam 3.375 GM in sodium chloride 0.9% (plus) 50 ML IV ×2 (10:35→18:11)
--- NOTE | 2020-01-06 12:04 | SUR.OPER ---
notified patient's father via cell phone procedure had started, patient doing well
--- NOTE | 2020-01-06 14:07 | SUR.OPER ---
Phoned patient's father and gave an update that patient is doing well.
--- NOTE | 2020-01-06 15:49 | PM.OP ---
Operative Report Date of procedure: January 06, 2020 Pre-op Diagnosis: Descending colon cancer Post-op diagnosis: same (Severe desmoid reaction involving the lateral upper abdominal wall) Post-op Findings: Laparoscopic left hemicolectomy Mesenteric high ligation of left colic artery and associated mesenteric vessels Syrf-xa-nguh anastomosis between distal transverse colon and proximal sigmoid using 75 mm blue load stapler 5 mm clips were applied onto the raw area of the lateral upper abdominal wall Splenic flexure mobilization using the supra colic technique Blue loads/Bilateral TAP (transversus abdominous plain peripheral nerve block )block using Exparel Procedure Done: Laparoscopic left hemicolectomy with distal transverse colon to sigmoid anastomosis [id number] Implants: Large piece of Surgicel towards the inferior pole of the spleen and the raw area of the lateral upper abdominal wall Specimens removed/disposition: Left hemicolectomy Staple line Surgeon: Gigi Desai Zone Manager: Surgical techs Faheem/Xavi Circulating nurses Niyah and Ad Anesthesia: General (fumigator and sterilizer Ismael Sullivan/Dr. Urbina) Estimated blood loss (mL): 150 IV fluids (mL): 2,000 Urine output (mL): 150 Condition: stable Disposition: floor Brief History: This is a pleasant 19 years old female patient presented originally with left sided torso pain and was found on incidental blood work that she has anemia patient was later on scoped by me in the form of diagnostic EGD that found gastritis and a colonoscopy that found a mass originally was thought to be in the distal transverse colon yet it was obstructive, a barium enema was ordered by me as a complementary study and was found more of a proximal descending mass and the rest of the colon was normal. Procedure: The patient was brought to the operating room and was placed in a supine position on the operating room table. General endotracheal anesthesia was induced. Time-out was done verifying the patient's name/date of /planned procedure and destination after the procedure, all were in agreement. SCDs confirmed to be functioning, preoperative antibiotics administered per protocol, and beta soto protocol was confirmed. The patient was then moved to a modified lithotomy position.A Mclaughlin catheter was inserted revealing clear urine. Prep of the rectum with Betadine flushes was achieved,The abdomen and perineum were prepped and draped in a sterile fashion. Started by longitudinal skin incision supraumbilical using a Peace trocar technique safe entry to the abdominal cavity was achieved verified by using 10 mm zero degree laparoscopy, switched to a 30? scope, a 5 mm trocar was inserted at the right lower direct visualization,followed by a 5 mm trocar was inserted at the right upper quadrant under direct visualization and another 5 mm trocar was inserted to the left side of the abdomen under direct visualization. I started by mobilizing the descending colon, including the inked portion that signifies the site of the cancer ,through the line of Toldt using the harmonic scalpel device, I noticed the descending colon mass was having severe desmoid reaction with the lateral upper abdominal wall muscles and was encased by omentum which again concerning for extraluminal involvement of cancer through the serosa and involving of the abdominal wall. There was no evidence of peritoneal carcinomatosis otherwise or malignant ascites or liver involvement. I was able to use sharp dissection to mobilize the descending colon, with the countertraction was achieved I was able to identify and skeletonized the left colic pedicle and 45 mm vascular GI load was applied to secure the pedicle as a high ligation to maximize the lymph node basins of the specimen. At that point I continued dissection and mobilizing the left side of the colon up to the splenic flexure and distal transverse colon by opening the lesser sac I added an additional 5 mm trocar towards the left side of the mid abdomen to facilitate dissection and another vascular pedicle was identified at that point I switched the left lower quadrant 5 mm trocar to a 12 mm trocar under direct visualization followed by that an endoscopic stapler device using white load 45 mm and was angled in a way to control the pedicle just lateral to the ligament of Treitz. At that point dissection was continued towards the proximal sigmoid colon, left ureter and retroperitoneal vasculature were intact. and I was able to free the splenic flexure completely without injuring the spleen, at that point I did perform a midline incision to deliver the specimen with the proximal and distal healthier colon segment, blue load MAXWELL 75 mm staplers were used to divide proximal and distal to the tumor with appropriate safety margin, 3-0 silk was applied and stay sutures enterotomies were created and a MAXWELL 75 mm blue load was used to create [id number] tension-free anastomosis between the distal transverse and the proximal sigmoid colon, the edges were grabbed after noticing that there is no bleeding within the colon yet the edges were healthy and had good bleeding points, multiple Allis clamps were applied and another fire of the MAXWELL 75 blue load was applied and followed by multiple 3-0 silk sutures seromuscular were applied at the bleeding points as well as the crotch between both limbs. The specimen was passed to the circulating nurse and gloves were changed At that point the colon was delivered back to the abdominal cavity and we had a good seal The upper abdomen and pelvis, appropriate hemostasis was secured towards the left lateral abdominal wall where the mass was encasing the abdominal in a large piece of Surgicel was placed in addition to multiple 5 mm clips were applied for potential future radiation if indicated and at the bed of the splenic flexure area towards the spleen 5 mm clips were applied for addition hemostasis as well. Bilateral TAP (transversus abdominous plain peripheral nerve block )block using Exparel 20 mL Exparel 40 ml Normal saline 20 ml bupivacaine 0.25% 30 mL on each side injected 20 mL injected the port sites The left lower 12 mm trocar site was closed under direct visualization, all trochars were taken out under direct visualization Midline closure was achieved under direct visualization using loop PDS followed by thorough irrigation of the subcutaneous layer then a 2-0 Vicryl followed by skin dayna of all skin incisions. Appropriate counts of sponges,needles and instruments were completed at the end of the procedure. Patient tolerated the procedure well and got extubated and was taken to the recovery area I was present for the whole entire procedure.
[2020-01-06] MEDS: fentaNYL 50 mcg/mL INJ 2mL IVP ×2 (16:26→16:31)
[2020-01-06] MEDS: morphine 4 mg/mL SDV 1 mL 2 MG IVP ×2 (17:39→21:06)
[2020-01-06] MEDS: lactated ringers 1,000 ML 150 ML IV (17:39)
[2020-01-06] MEDS: famotidine 20 mg/2 mL INJ IVP (17:40)
[2020-01-06] MEDS: lanolin oint 7 gm 1 APPLIC TOPICAL (21:05)
[2020-01-07] VITALS (9 sets, daily range): BP systolic 114–158; BP diastolic 76–94; PULSE 71–91; RESP 12–18; TEMP 36.6–37.1; O2SAT 96–100
[2020-01-07] MEDS: lactated ringers 1,000 ML 150 ML IV ×4 (00:04→19:16)
[2020-01-07] MEDS: piperacillin-tazobactam 3.375 GM in sodium chloride 0.9% (plus) 50 ML IV ×3 (02:36→17:14)
[2020-01-07 03:58] LABS: Hematocrit 28.3 % (37.0-47.0); Hemoglobin 7.7 g/dL (11.5-15.3)
[2020-01-07 04:13] LABS: Anion Gap 19.3 (5-19); Blood Urea Nitrogen 5 mg/dL (6-20); Carbon Dioxide 19 mmol/L (22-29); Chloride 101 mmol/L (98-107); Glomerular Filtration Rate 126.2 mL/min (90-130); Glucose 121 mg/dL (65-115); Osmolality Calculated 277 mOsm/kg (285-295); Potassium 4.3 mmol/L (3.5-5.1); Sodium 135 mmol/L (136-145)
[2020-01-07] MEDS: famotidine 20 mg/2 mL INJ IVP ×2 (05:15→16:16)
--- NOTE | 2020-01-07 05:24 | PM.PN ---
Subjective Subjective: Interval history: Patient overall feels well Good urine output No acute events overnight Pain is under control Vitals/I&O/Wt Last Vital Signs Temp 98.0 F 01/07/20 04:00 Pulse 86 01/07/20 04:00 Resp 18 01/07/20 04:00 BP 143/82 01/07/20 04:00 Pulse Ox 98 01/07/20 04:00 01/06/20 01/06/20 01/07/20 14:59 22:59 06:59 Intake Total 1150 / 1150 1150 / 2300 962.5 / 3262.5 Output Total 450 / 450 1350 / 1800 Balance 1150 / 1150 700 / 1850 -387.5 / 1462.5 Physical Exam Narrative: EXAM NARRATIVE: Patient is conscious alert oriented X3 BMI 31 Head and neck examination PERRLA no masses no cervical lymphadenopathy no jaundice Cardiac examination audible S1-S2 no murmurs no gallops no arrhythmias Chest is clear bilateral,abscence of Rhonchi or wheezes,no surgical emphysema Abdomen nontender except at the incision sites particularly the one on the right nondistended soft no organomegaly guarding or rigidity/no signs of peritonitis Dressing is dry and intact Extremities no cyanosis no clubbing no edema Moving all extremities Urinary Catheter Management^: Mclaughlin: Cath Placed During This Visit: yes Reason for Continuing Indwelling Catheter: Perioperative Use in Selected Surgeries Urinary Catheter Date of Insertion: 01/06/20 Urinary Catheter Time of Insertion: 11:10 Data : 01/07/20 03:40 01/07/20 03:40 A&P Assessment and plan (1) Adenocarcinoma of descending colon: Patient is a status post left hemicolectomy with transverse colon to sigmoid colon [id number] anastomosis Surgery 01/06/2020 Encourage ambulation down the miller 300 to 400 feet each time 3-4 times a day Incentive spirometer every hour We will hold on heparin for now due to the marginal H&H DC Mclaughlin catheter 2 more doses of Zosyn and stop. Repeat labs in the morning in the form of H&H and BMP Continue LR at 150 mL/h Patient can have popsicles for now(patient prefers banana flavor) Assurance and education All questions have been answered and all concerns have been addressed to patient's satisfaction. Status: Resolved Attestations Medical Necessity Statement*: Medical necessity care is expected to cross 2 midnights Time Spent in Patient Care: 16 - 35 minutes (>than 50% of time spent in counselling and/or direct pt care on unit). Coding Level of Care Code Acute Template Fitter for Chg Fwd Diagnoses Adenocarcinoma of descending colon C18.6
[2020-01-07] MEDS: morphine 4 mg/mL SDV 1 mL 2 MG IVP ×3 (06:35→20:17)
[2020-01-07] MEDS: ondansetron 2 mg/ML SDV 2 mL 4 MG IVP (06:35)
--- NOTE | 2020-01-07 06:54 | PC.NURSE ---
PT WALKED 3 LAPS AROUND [facility]-ABOUT 670 FEET
--- NOTE | 2020-01-07 10:42 | PC.CHAP ---
Pastoral Care Encounter/Spiritual Assessment Type of Contact [] Declined casino worker visit [] Patient/Family/Request visit [] Outpatient visit [] Follow-up visit [] Physician referral [] Code/Alert [x] Routine visit [] Staff referral [] Actively dying [] Patient sleeping [] Family support [] [] Out of room [] Palliative care [] [x] Receiving care in room [] Pre-surgical visit [] Trauma [] Long length of stay [] ICU visit [] Other: Relational/Emotional Strength [x] Patient feels connected with others/family/visitors/staff [] Distress [] Loneliness/isolation [] Abandonment Spirituality of Patient [x] Person of Sveta [] Attends Yazdanism of their Sveta [x] Believes in Prayer [] Reads Bible or Gnosticist materials [] There are Spiritual issues to be addressed B Operator Interventions [x] Prayer [x] Active listening [x] Non-anxious presence [x] Spiritual/emotional support [] Crisis/trauma care [x] Spiritual counseling [] Bereavement support [] Provided bereavement packet [] Provided Bible/devotional materials [] Provided toy/stuffed animal, coloring book to patient or family member [] Provided Communion [] Anointing/[place] [] Salvation [x] Completed spiritual assessment [] Other: Impact on Illness or Injury [] Angry [] Fearful [x] Anxious [] Often cries [] Exhaustion [] Unable to work [] Unable to attend mosque [] Unable to walk/stand [] Unable to read [] Unable to drive [] Unable to eat/drink [] Unable to sleep [] Unable to be with family [] Patient intubated [] Other: Summary Removed daksha yesterday, FEELS GOOD HAS A GOOD ATTITUDE, does konw when she can go home? Time spent with patient 10 mins
--- NOTE | 2020-01-07 12:28 | ANE.PACU2 ---
Inpatient post-anesthesia follow up: Airway intact: Yes Vital signs: Temperature 98.6 F Pulse Rate 79 Respiratory Rate 14 Blood Pressure 114/77 Pulse Oximetry 97 Oxygen Delivery Me thod [ Room Air Current Rate & Del bria] Oxygen Delivery Me thod Room Air Oxygen Flow Rate 8 Fraction of Inspir ed Oxygen Hydration adequate: Yes Nausea and vomiting: No Pain level: 4 Mental status: Baseline
[2020-01-07] MEDS: heparin 5,000 unit/mL INJ 1 mL 5000 UNIT SUBCUT ×2 (13:06→21:42)
--- NOTE | 2020-01-07 17:56 | PC.NURSE ---
Menses Pt started her menses today. I provided pt with pad and net panty.
[2020-01-08] VITALS (8 sets, daily range): BP systolic 100–121; BP diastolic 68–77; PULSE 78–100; RESP 16–20; TEMP 36.3–37.2; O2SAT 97–98
[2020-01-08] MEDS: piperacillin-tazobactam 3.375 GM in sodium chloride 0.9% (plus) 50 ML IV ×3 (01:19→18:02)
[2020-01-08] MEDS: lactated ringers 1,000 ML 150 ML IV ×4 (02:15→22:42)
[2020-01-08] MEDS: morphine 4 mg/mL SDV 1 mL 2 MG IVP ×3 (02:36→12:54)
[2020-01-08 03:05] LABS: Hematocrit 23.8 % (37.0-47.0)
[2020-01-08 03:41] LABS: Anion Gap 15.2 (5-19); Blood Urea Nitrogen 4 mg/dL (6-20); Calcium 9.1 mg/dL (8.5-10.5); Carbon Dioxide 24 mmol/L (22-29); Chloride 103 mmol/L (98-107); Glomerular Filtration Rate 155.7 mL/min (90-130); Glucose 85 mg/dL (65-115); Osmolality Calculated 281 mOsm/kg (285-295); Potassium 4.2 mmol/L (3.5-5.1); Sodium 138 mmol/L (136-145)
--- NOTE | 2020-01-08 04:18 | PC.NURSE ---
This bustillos catheter was removed by Denise Landis RN and charted by this user under this worklist to complete order- see remove urinary catheter assessment 01/06/20 @0644 charted by Denise Landis
[2020-01-08] MEDS: famotidine 20 mg/2 mL INJ IVP ×2 (04:31→15:38)
[2020-01-08] MEDS: heparin 5,000 unit/mL INJ 1 mL 5000 UNIT SUBCUT (05:00)
--- NOTE | 2020-01-08 05:49 | P.PN_ITS ---
Subjective Subjective: Interval history: Patient complains of some left-sided neck sided pain mostly musculoskeletal denies any numbness of the extremities or weakness, has been getting better by ice pack application on the area otherwise no acute events overnight, patient did not pass gas yet but she feels rumbling in her belly Good urine output Vitals/I&O/Wt Last Vital Signs Temp 98.3 F 01/08/20 03:57 Pulse 91 01/08/20 03:57 Resp 18 01/08/20 03:57 BP 114/74 01/08/20 03:57 Pulse Ox 97 01/08/20 03:57 01/07/20 01/07/20 01/08/20 14:59 22:59 06:59 Intake Total 1167.5 / 1167.5 1000 / 2167.5 1000 / 3167.5 Output Total 200 / 200 500 / 700 550 / 1250 Balance 967.5 / 967.5 500 / 1467.5 450 / 1917.5 Physical Exam Narrative: EXAM NARRATIVE: EXAM NARRATIVE: Patient is conscious alert oriented X3 BMI 31 Head and neck examination PERRLA no masses no cervical lymphadenopathy no jaundice Cardiac examination audible S1-S2 no murmurs no gallops no arrhythmias Chest is clear bilateral,abscence of Rhonchi or wheezes,no surgical emphysema Abdomen nontender except at the incision sites/incisions are clean dry and intact and skin dayna in place /nondistended soft no organomegaly guarding or rigidity/no signs of peritonitis Extremities no cyanosis no clubbing no edema Moving all extremities Urinary Catheter Management^: Mclaughlin: Cath Placed During This Visit: yes, but has since been removed by the nurse Reason for Continuing Indwelling Catheter: Perioperative Use in Selected Surgeries Urinary Catheter Date of Insertion: 01/06/20 Urinary Catheter Time of Insertion: 11:10 Date Urinary Catheter Removed: 01/07/20 Time Urinary Catheter Discontinued: 06:44 Data : 01/09/20 02:07 01/08/20 02:45 A&P Assessment and plan (1) Adenocarcinoma of descending colon: We will continue popsicle We will hold on heparin for now and monitor H&H No indication for blood transfusion at this point Encourage ambulation Incentive spirometer every hour Once patient starts passing gas will start her slowly on clear liquid diet Assurance and education All questions have been answered and all concerns have been addressed to patient's satisfaction. Status: Resolved Attestations Medical Necessity Statement*: Medical necessity care is expected to cross 2 midnights Time Spent in Patient Care: 16 - 35 minutes (>than 50% of time spent in counselling and/or direct pt care on unit) . Coding Level of Care Code Acute Statement Processor for Rigobertog Fwd Diagnoses Adenocarcinoma of descending colon C18.6
[2020-01-08] MEDS: lidocaine 5% Patch 1 PATCH TOPICAL (20:06)
[2020-01-09] VITALS (11 sets, daily range): BP systolic 108–131; BP diastolic 74–86; PULSE 86–106; RESP 14–20; TEMP 36.7–37.2; O2SAT 97–100
[2020-01-09] MEDS: piperacillin-tazobactam 3.375 GM in sodium chloride 0.9% (plus) 50 ML IV ×2 (01:41→11:24)
[2020-01-09 02:46] LABS: Hematocrit 23.2 % (37.0-47.0)
[2020-01-09] MEDS: famotidine 20 mg/2 mL INJ IVP ×2 (04:03→15:40)
[2020-01-09] MEDS: lidocaine 5% Patch 1 PATCH TOPICAL (04:07)
[2020-01-09] MEDS: lactated ringers 1,000 ML 150 ML IV (04:09)
[2020-01-09 04:13] LABS: Hemoglobin 6.3 g/dL (11.5-15.3)
--- NOTE | 2020-01-09 06:26 | PM.PN ---
Subjective Subjective: Interval history: Patient H&H dropped to 6.3/23.2 without clinical symptoms yet concerning for me about the potential healing of the anastomosis, 1 unit of packed RBCs was ordered Patient continues to have good bowel sounds but not passing gas yet Patient complains of some tenderness on the left side of her neck mostly muscular Pathology showed: Final Diagnosis Specimen A, descending colon, resection: Poorly differentiated adenocarcinoma of the colon with extension into pericolonic fat Cauterized tumor at inked peripheral (radial soft tissue) resection margin (section A3) with no definite serosa on this section No vascular or perineural invasion identified Mucosal margins free of malignancy 26 benign lymph nodes with reactive changes?0 Please see accompanying checklist and microscopic description Specimen B, staple line: Fragments of benign colonic mucosa?no malignancy identified Vitals/I&O/Wt Last Vital Signs Temp 98.3 F 01/09/20 04:00 Pulse 88 01/09/20 04:00 Resp 19 H 01/09/20 04:00 BP 125/86 01/09/20 04:00 Pulse Ox 98 01/09/20 04:00 01/08/20 01/08/20 01/09/20 14:59 22:59 06:59 Intake Total 972.5 / 972.5 2100 / 3072.5 847.292 / 3919.792 Output Total 1900 / 1900 1600 / 3500 Balance 972.5 / 972.5 200 / 1172.5 -752.708 / 419.792 Physical Exam Narrative: EXAM NARRATIVE: Patient is conscious alert oriented X3 BMI 31 Head and neck examination PERRLA no masses no cervical lymphadenopathy no jaundice Cardiac examination audible S1-S2 no murmurs no gallops no arrhythmias Chest is clear bilateral,abscence of Rhonchi or wheezes,no surgical emphysema Abdomen nontender except at the incision sites nondistended soft no organomegaly guarding or rigidity/no signs of peritonitis Good bowel sounds Incision are clean dry and intact Extremities no cyanosis no clubbing no edema Urinary Catheter Management^: Mclaughlin: Cath Placed During This Visit: yes, but has since been removed by the nurse Reason for Continuing Indwelling Catheter: Perioperative Use in Selected Surgeries Urinary Catheter Date of Insertion: 01/06/20 Urinary Catheter Time of Insertion: 11:10 Date Urinary Catheter Removed: 01/07/20 Time Urinary Catheter Discontinued: 06:44 Data : 01/09/20 02:07 01/08/20 02:45 A&P Assessment and plan (1) Adenocarcinoma of descending colon: Status post laparoscopic left hemicolectomy01/06 we start the patient slowly on clear liquid diet Transfuse 1 unit of packed RBCs Pathology review with the patient Encourage ambulation Incentive spirometer every hour Assurance and education All questions have been answered and all concerns have been addressed to patient's satisfaction. Status: Resolved Attestations Medical Necessity Statement*: Medical necessity care is expected to cross 2 midnights Time Spent in Patient Care: 16 - 35 minutes (>than 50% of time spent in counselling and/or direct pt care on unit). Coding Level of Care Code Acute General Labor Forklift Operator for Chg Fwd Diagnoses Adenocarcinoma of descending colon C18.6
[2020-01-09] MEDS: sodium chloride 0.9% (100 ml) 100 ML 50 ML (09:21)
--- NOTE | 2020-01-09 10:38 | XRR_ITS ---
PROCEDURE INFORMATION: Exam: XR Cervical Spine, 2 or 3 Views Exam date and time: 01/09/2020 11:14 AM Age: 19 years old Clinical indication: Patient HX: C/O neck pain -left side. HX of adenocarcinoma descending colon; Additional info: Left sided neck pain. TECHNIQUE: Imaging protocol: XR of the cervical spine, 2 or 3 views. COMPARISON: No relevant prior studies available. FINDINGS: Vertebrae: Osseous structures appear intact. No acute fracture. Cervical lordotic straightening. Disc spaces well maintained. Soft tissues: Unremarkable. XR/XR cervical spine 3V* [id number] IMPRESSION: Cervical straightening.
[2020-01-09] MEDS: D5-NS 0.45% + KCL 20 mEq 20 MEQ/1,000 ML BAG 75 MEQ IV (13:02)
[2020-01-09] MEDS: cyclobenzaprine 10 mg Tablet PO (15:37)
--- NOTE | 2020-01-09 16:48 | P.DS_ITS ---
Discharge Providers Date of Admission: 01/06/20 16:06 Date of Discharge: January 09, 2020 Attending Provider at Admission: Gigi Desai MD Attending Provider at Discharge: Gigi Desai MD Primary Care Provider: Rob Benito MD Diagnoses at Discharge Discharge Diagnosis (1) Adenocarcinoma of descending colon: Status: Resolved Reason for Visit Reason for Visit: Adenocarcinoma of descending colon Hospital Course Discharge Summary: This is a pleasant 19 years old female patient undergone uneventful laparoscopic left hemicolectomy, patient overall continues to be performing well during her hospital stay she was kept n.p.o. till she started having bowel functions, tolerating well clear liquid diet and had smaller bowel movement earlier today and just late afternoon had bigger bowel movement and continued to pass gas. As her H&H was originally low I did follow on serial H&H during hospitalization and I elected to transfuse 1 unit of packed RBCs to the patient and she tolerated that well without complications. She will continue to have stable vital signs without evidence of tachycardia and continued to have appropriate urine output. Patient is responding well to muscle relaxant in the form of Flexeril 10 mg 3 times daily as needed for her neck muscle pain x-rays were obtained that showed no acute abnormality of the neck. Pathology have been reviewed with the patient in details and we will plan to have the patient follow-up with me in 1 week at the office and to follow with Dr. Ward as well to discuss further plan of care with regard to her colon cancer. Physical Exam Narrative: EXAM NARRATIVE: Patient is conscious alert oriented X3 BMI 31 Head and neck examination PERRLA no masses no cervical lymphadenopathy no jaundice Cardiac examination audible S1-S2 no murmurs no gallops no arrhythmias Chest is clear bilateral,abscence of Rhonchi or wheezes,no surgical emphysema Abdomen nontender except mildly at the incision sitesnondistended soft no organomegaly guarding or rigidity/no signs of peritonitis/incisions are clean dry and intact and skin dayna in place Extremities no cyanosis no clubbing no edema Urinary Catheter Management^: Mclaughlin: Cath Placed During This Visit: yes, but has since been removed by the nurse Reason for Continuing Indwelling Catheter: Perioperative Use in Selected Surgeries Urinary Catheter Date of Insertion: 01/06/20 Urinary Catheter Time of Insertion: 11:10 Date Urinary Catheter Removed: 01/07/20 Time Urinary Catheter Discontinued: 06:44 Discharge Data Data Completed and Pending: Completed Studies During Hospitalization Category Date Time Status XR cervical spine 3V* [id number] Routine Exams 01/09/20 10:38 Completed Pathology: Surgic al [PTH] Routine Pth 01/06/20 15:56 Completed Pending at discharge Category Date Time Status ES surgery / GI i mages Routine Exams 01/06/20 10:28 Taken Labs from last 24 hours 01/09/20 01/09/20 01/06/20 04:40 02:07 10:14 Hgb 6.3 L* Hct 23.2 L Blood Type B Positive Rho(D) Type Positive Antibody Screen Negative Crossmatch See Detail See Detail Addt'l Data from Hospital Stay: Cervical spine x-rays 3 views : FINDINGS: Vertebrae: Osseous structures appear intact. No acute fracture. Cervical lordotic straightening. Disc spaces well maintained. Soft tissues: Unremarkable. XR/XR cervical spine 3V* [id number] IMPRESSION: Cervical straightening. Procedures Performed: Laparoscopic left hemicolectomy with transverse colon to sigmoid colon heff-ng-drod anastomosis. Vitals: Last Vital Signs Temp 98.8 F 01/09/20 15:15 Pulse 94 01/09/20 15:15 Resp 18 01/09/20 15:15 BP 123/83 01/09/20 15:15 Pulse Ox 98 01/09/20 15:15 Discharge Plan Discharge Patient Disposition: Home, Self-Care Condition: Stable Prescriptions: [place] 5-325 mg tablet 1 tab PO Q6H PRN (Reason: pain) Qty: 28 RF: 0 cyclobenzaprine 10 mg tablet 10 mg PO TID PRN (Reason: muscle spasm) Qty: 30 RF: 0 Continued ferrous sulfate 325 mg (65 mg iron) tablet,delayed release (DR/EC) 325 mg PO BID RF: 0 pantoprazole [Protonix] 40 mg tablet,delayed release (DR/EC) 40 mg PO DAILY 30 Days Qty: 30 RF: 2 Discharge Orders: Discharge Order (Routine); Ordered 01/09/20 Ordered By: Gigi Desai Referrals: Gigi Desai MD [Physician] - (Went to surgery office in 1 week) Jaydon Ward MD [Staff Physician] - (Return to see Dr. Ward first available appointment) Activity Restrictions/Additional Instructions: 1. Patient can shower after 48 hours from surgery 2. Keep incisions open to air 3. Up and walking as tolerated 4. Do lift more than 5 pounds first 2 weeks after surgery and not more than 25 pounds 6 to 8 weeks after surgery. 5. Do not operate heavy machinery or drive while using pain medications. 6.Contact the office or return to the ER for worsening nausea vomiting fevers or chills, or noticing any redness around incision sites or discharge. 7. For today and tomorrow clear liquid diet and 3 to 4 cans of protein shakes per day, starting Monday patient can start advance to soft GI diet. Discharge Attestations Time Spent in Discharge Care*: greater than 30 min Status at Discharge: Cognitive status at discharge: cognitively intact , Behavioral status at discharge: cooperative , Functional status at discharge: independent ambulation Overall status at discharge: patient is progressing back to baseline Quality Metrics Clinical Quality Measures During this hospital stay, did patient experience: None Coding Level of Care Code Acute Counselor Supervisor for Nikolai Del Castillo Diagnoses Adenocarcinoma of descending colon C18.6
== END 2020-01-09 18:42 | disposition home or self-care (01) | DRG 331 ==
LOC: MEDSURG 16:01
PROVIDERS: Anesthesiology; Admitting Provider Surgery; PCP Family Medicine; Visit Provider Surgery
PROC: 0DTN4ZZ Resection of Sigmoid Colon, Percutaneous Endoscopic Approach (ICD-10-PCS; CPT 44204; principal; 2020-01-06 10:00)
DX: C18.6 Malignant neoplasm of descending colon (principal); E66.01 Morbid (severe) obesity due to excess calories; Z68.30 Body mass index [BMI] 30.0-30.9, adult
CPT/HCPCS: 12345; 36415; 36430; 51702; 72040; 80048; 81025; 84703; 85014; 85018; 86850; 86900; 86920; 88309; 96365; 96372; 96375; C9290; G0378; J0131; J1100; J1644; J2270; J2405; J2543; J2704; J2710; J3010; J3490; J7030; P9016

== ENCOUNTER 2020-01-16 13:36 | Outpatient (CLI) | payer MEDICAID, SELFPAY ==
[2020-01-16 14:13] LABS: Basophils # 0.1 10^3/uL (0.0-0.1); Eosinophils # 0.4 10^3/uL (0.0-0.8); Eosinophils % 5.7 %; Hematocrit 33.7 % (37.0-47.0); Hemoglobin 9.5 g/dL (11.5-15.3); Lymphocytes # 2.1 10^3/uL (0.8-4.8); Lymphocytes % 26.9 %; Mean Corpuscular HGB Conc 28.2 g/dL (30.0-36.0); Mean Corpuscular Hemoglobin 21.3 pg (28.0-34.0); Mean Corpuscular Volume 75.6 fL (81-99); Mean Platelet Volume 8.3 fL (7.4-10.4); Monocytes # 0.7 10^3/uL (0.2-0.9); Monocytes % 8.6 %; Neutrophils # 4.48 10^3/uL (1.8-7.7); Neutrophils % 57.5 %; Nucleated Red Blood Cells % 0 %; Platelet Count 738 10^3/cmm (130-400); Red Blood Count 4.46 10^6/uL (4.1-5.3); Red Cell Distribution Width 26.2 % (12.1-15.1); White Blood Count 7.8 10^3/uL (4.0-10.0)
[2020-01-16 14:43] LABS: Alanine Aminotransferase 15 U/L (0-33); Albumin Level 4.2 g/dL (3.5-5.2); Alkaline Phosphatase 47 IU/L (35-105); Aspartate Amino Transferase 16 U/L (0-32); Blood Urea Nitrogen 7 mg/dL (6-20); Calcium 9.6 mg/dL (8.5-10.5); Carbon Dioxide 26 mmol/L (22-29); Chloride 104 mmol/L (98-107); Globulin 3.7 g/dL (1.3-4.6); Glomerular Filtration Rate 155.7 mL/min (90-130); Glucose 116 mg/dL (65-115); Osmolality Calculated 287 mOsm/kg (285-295); Sodium 140 mmol/L (136-145); Total Bilirubin 0.3 mg/dL (0.15-1.2); Total Protein 7.9 g/dL (6.6-8.7)
== END 2020-01-16 13:37 | disposition home or self-care (01) ==
LOC: ONCMED 13:41
PROVIDERS: PCP Family Medicine; Visit Provider Internal Medicine Hematology & Oncology
DX: C18.4 Malignant neoplasm of transverse colon (principal); D50.9 Iron deficiency anemia, unspecified
CPT/HCPCS: 36415; 80053; 85025

== ENCOUNTER 2020-01-17 08:01 | Outpatient (CLI) | payer MEDICAID, SELFPAY ==
[2020-01-17] MEDS: ferric carboxy (IVPB) 750 MG in sodium chloride 0.9% (100 ml) 100 ML 460 MG IV (09:40)
[2020-01-17] MEDS: sodium chloride 0.9% (100 ml) 100 ML 75 ML (09:40)
--- NOTE | 2020-01-17 11:06 | ONC FU_ITS ---
Dr. Ward follow up note Patient: Alivia Tony Unit #: [id number]: [id number] Dicatated By: Jaydon Ward M.D.Date of Visit:Jan 17, 2020 Onc Med Follow-up/Prog Note History of Present Illness: Ms. Alivia Tony, is a 19-year-old female with history of progressive weakness and fatigue, shortness of breath and palpitation on exertion went to [facility] on November 29, 2019 and found to have hemoglobin around 6 g and she was given unit of packed RBC with that her hemoglobin improved to 7.5 g As per patient before this admission she was not aware of anemia in fact last year in December 2018 she went to [facility] with bleeding per rectum at that time her hemoglobin was normal and she was treated conservatively. And since then she has been having dark-colored stools and off and on rectal bleed and also having irregular and off and on heavy menses and recently also start taking nonsteroidal for costochondritis. Chest x-ray showed no abnormality except slight left hemidiaphragm elevation for which she underwent CT scan of abdomen and pelvis on November 29, 2019 which showed peripheral enhancing right ovarian hemorrhagic or corpus luteum cyst measuring 1.6 x 1.9 cm with surrounding fluid. No other abnormality seen.Except mild diffuse fatty infiltration of the liver Patient denies any peripheral numbness, denies any jaundice, denies any weight loss, denies any abdominal pain, denies any history of gastric surgery, denies any hematuria, denies any night sweats, denies any weight loss. Because of history of dark-colored stools and bleeding per rectum, GI was consulted, Dr. Desai Performed colonoscopy on December 25, 2019 which showed in the mid transverse colon, completely obstructing large size, fungating, friable, malignant appearing circumferential, villous 3 cm x 6 cm mass and mass was not bleeding but biopsy was obtained which confirmed moderately differentiated invasive adenocarcinoma Underwent left hemicolectomy on January 06, 2020, final pathology report showed poorly differentiated adenocarcinoma of colon with extension into pericolonic fat. Cauterized tumor at inked peripheral resection margin with no definite serosa on dissection. pT4a (tumor invades visceral peritoneum) No vascular or perineural invasion seen. 26 benign lymph nodes with reactive changes. pN0 , Stage IIb Came for follow-up, complaining of intolerance to oral iron so quit taking. Now recovering from left hemicolectomy. And she is here to discuss further planning. No fever chills, no nausea or vomiting, no diarrhea or constipation, no jaundice, no abdominal pain, surgical wound is healing well. Medications: Cyclobenzaprine HCl 1 Tablet (of 10 mg) Oral t.i.d. PRN, Ferrous Sulfate 1 Tablet (of 325 (65 fe) mg) Oral b.i.d., HYDROcodone-Acetaminophen 1 Tablet (of 5-325 mg) Oral q 6 hours PRN, Pantoprazole Sodium 1 Tablet (of 40 mg) Tablet, enteric coated Oral daily Allergies: No Known Allergies. Review of Systems: Constitutional - Appetite is good and weight is stable. No fever, night sweats, or hot flashes. Energy level is good, ENMT - No sinus congestion/drainage. No mouth sores. No sore throat or difficulty swallowing, Hematologic/Lymphatic - No abnormal bruising or bleeding, Respiratory - Negative for shortness of breath. No cough. No pleuritic pain or hemoptysis, Cardiovascular - No angina pain. No palpitations, Gastrointestinal - No nausea or vomiting. No heartburn or acid reflux. No diarrhea. Negative for constipation and dark stool, Genitourinary (F) - No dysuria or hematuria. No urinary frequency. No urgency or incontinence, Musculoskeletal - Positive for shoulder pain today, Neurologic - No headache, no dizziness. No numbness or tingling. No other focal neurologic symptoms, Psychiatric - No anxiety. Negative for depression. No insomnia. Vital Signs: Performed on Jan 17, 2020 08:08 Height - 69.00 in Weight - 202.0 lbs (LOW) BSA - 2.07 sq.m BMI - 29.83 Temperature - 97.2 F (LOW) Pulse - 78 /min Respiration - 16 /min BP - 121/81 mm(hg) O2 Sat - 99 % Pain - 0 Performance Status: 0 - Fully active, able to carry on all predisease activities without restrictions. (ECOG) Physical Examination: ENMT - No mouth sores no thrush no jaundice, Respiratory - Lungs are clear, Cardiovascular - Regular rate and rhythm of heart, Abdomen - Soft, bowel sounds present, Well-healed surgical scar, Extremities - No visible edema or rash. Lab/Imaging: Test performed on Dec 18, 2019 10:14 WBC 8.4 10 3/uL RBC 4.66 10 6/uL HGB 8.4 g/dL HCT 31.1 % MCV 66.7 fL MCH 18.0 pg MCHC 27.0 g/dL RDW 28.4 % Platelet Count 811 10 3/cmm MPV 8.2 fL Neutrophils 5.6 10 3/uL Lymphocytes 1.8 10 3/uL Monocytes 0.7 10 3/uL Eosinophils 0.2 10 3/uL Basophils 0.1 10 3/uL Neutrophil % 65.7 % Lymphocyte % 21.6 % Monocyte % 8.8 % Eosinophil % 2.5 % Basophils % 1.2 % NRBC % 0 % Impression: Moderately differentiated invasive adenocarcinoma involving mid transverse colon polyp colonoscopy done on December 25, 2019, Status post left hemicolectomy done on January 06, 2020, final pathology report showed poorly differentiated adenocarcinoma, tumor invades through muscularis propria into pericolonic fat with circumferential or radial margins involved but proximal and distal margins were clear. pT4a No lymphovascular/perineural invasion seen. 0 out of 26 lymph nodes showed metastatic disease pN0 Stage IIb CT scan of abdomen shows mild diffuse fatty infiltration of the liver otherwise no other abnormality seen except peripheral enhancing right ovarian hemorrhagic or corpus luteum cyst measuring 1.9 x 1.6 cm iron deficiency anemia probably multifactorial including chronic blood loss due to heavy menses or off and on GI bleeding From newly diagnosed colon cancer other possibility could be malabsorption. Generalized weakness fatigue, dyspnea on exertion due to severe iron deficiency anemia diagnosed on November 29, 2019 with a hemoglobin around 6 g status post 1 unit of packed RBC, now on oral iron twice a day since then. Right ovarian hemorrhagic cyst,Seen by [facility], Dr. Rivera and no work-up rather observation recommended Plan: Discussed with patient regarding her labs white blood count 7.8 hemoglobin 9.5 hematocrit 33.7 MCV 75.6 platelets 738,000 CMP within normal limits And her final pathology report which showed T4a lesion (tumor invades the visceral peritoneum), 0 out of 26 lymph node positive with no lymphovascular/perineural invasion e.g. stage IIb Discussed with patient regarding further treatment options, considering her age and also concerned about positive circumferential margin although there is no lymph node involvement or lymphovascular or perineural invasion seen, MSI/MMR status is pending Patient and her father, prefer second opinion and may consider clinical trial ,if available. We will refer her to GI oncology clinic at [facility] for evaluation regarding clinical trial/genetic testing and counseling and second opinion regarding pathology as well as treatment. Iron deficiency anemia, intolerance to oral iron, consider Injectafer 750 mg IV weekly x2 Patient will return to clinic 1 week after her visit to [facility], with CBC and iron studies. Signed By: Jaydon Ward M.D. <<Signature on File>>
[2020-04-02 12:42] LABS: Miscellaneous Test See Scanned Lab Rpt
== END 2020-01-17 08:02 | disposition home or self-care (01) ==
LOC: ONCMED 08:02
PROVIDERS: PCP Family Medicine; Visit Provider Internal Medicine Hematology & Oncology
DX: C18.4 Malignant neoplasm of transverse colon (principal); C78.6 Secondary malignant neoplasm of retroperitoneum and peritoneum; D50.0 Iron deficiency anemia secondary to blood loss (chronic); N92.0 Excessive and frequent menstruation with regular cycle; N83.201 Unspecified ovarian cyst, right side; K76.0 Fatty (change of) liver, not elsewhere classified; Z90.49 Acquired absence of other specified parts of digestive tract; Z79.891 Long term (current) use of opiate analgesic
CPT/HCPCS: 81301; 88360; 96365; 99214; J1439

== ENCOUNTER 2020-01-24 07:56 | Outpatient (CLI) | payer MEDICAID, SELFPAY ==
[2020-01-24] MEDS: ferric carboxy (IVPB) 750 MG in sodium chloride 0.9% (100 ml) 100 ML 460 MG IV (08:15)
== END 2020-01-24 07:57 | disposition home or self-care (01) ==
LOC: ONCMED 07:58
PROVIDERS: PCP Family Medicine; Visit Provider Internal Medicine Hematology & Oncology
DX: D50.9 Iron deficiency anemia, unspecified; C18.4 Malignant neoplasm of transverse colon
CPT/HCPCS: 96365; J1439

== ENCOUNTER 2020-05-29 13:03 | Emergency (ER) | payer MEDICAID, SELFPAY ==
[2020-05-29 13:27] VITALS: BP 130/87; PULSE 113; RESP 18; TEMP 36.7; O2SAT 98; BMI 34.2
--- NOTE | 2020-05-29 14:21 | CTR_ITS ---
PROCEDURE INFORMATION: Exam: CT Abdomen And Pelvis With Contrast Exam date and time: 05/29/2020 4:09 PM Age: 19 years old Clinical indication: Pain and condition or disease; Cancer; Abdominal pain; Localized; Left lower quadrant (llq); Prior surgery; Surgery type: Colon resection; Additional info: Llq pain. H/o colon cancer, left flank pain TECHNIQUE: Imaging protocol: Computed tomography of the abdomen and pelvis with intravenous contrast. Radiation optimization: All CT scans at this facility use at least one of these dose optimization techniques: automated exposure control; mA and/or kV adjustment per patient size (includes targeted exams where dose is matched to clinical indication); or iterative reconstruction. Contrast material: OMNI 300; Contrast volume: 95 ml; Contrast route: INTRAVENOUS (IV); COMPARISON: CT abdomen pelvis w con* [id number] 11/29/2019 9:35 AM RADIATION DOSE METRICS: Total DLP (mGy-cm): 1541.1 FINDINGS: Lungs: The lung bases appear unremarkable. The lung bases appear unremarkable. Liver: The liver is unremarkable in appearance. Gallbladder and bile ducts: No calcified stones. No ductal dilation. Pancreas: The pancreas is normal in appearance. Spleen: The spleen is normal in size and appearance. Adrenal glands: The adrenal glands appear within normal limits. Kidneys and ureters: The kidneys are normal in morphology. No hydronephrosis. No solid mass. Stomach and bowel: No acute gastric abnormality demonstrated. The small bowel is unremarkable as demonstrated. Click normal stomachThe small bowel is unremarkable as demonstrated. No inflammatory changes of the colon are noted. Appendix: No evidence of appendicitis. Normal appendix demonstrated. Intraperitoneal space: No pneumoperitoneum. There is a soft tissue mass seen in the left upper quadrant abutting/infiltrating the lateral peritoneal surface, measuring 6.5 cm AP x 4.7 cm transverse x 7.8 cm craniocaudal. The mass surrounds multiple surgical clips, and is adjacent to and anastomotic suture line in the colon. This is concerning for metastatic disease related to the patient's colon CA. Minimal free fluid noted in the cul-de-sac, which is likely physiologic in etiology. Minimal pathologic ascites not excluded. Vasculature: No abdominal aortic aneurysm. Lymph nodes: No pathologically enlarged lymph nodes are demonstrated. Urinary bladder: The urinary bladder is unremarkable in appearance. Reproductive: Uterus and adnexa appear unremarkable. Bones/joints: No fracture or other acute osseous abnormality. Soft tissues: The soft tissues appear unremarkable. CT/CT abdomen pelvis w con* [id number] IMPRESSION: 1. 6.5 x 4.7 x 7.8 cm enhancing mass in the left paracolic gutter invading the adjacent peritoneal surface. This is concerning for a metastatic lesion. 2. Minimal free fluid noted in the cul-de-sac, which is likely physiologic in etiology. Minimal pathologic ascites not excluded. 3. No additional evidence of metastatic disease in the abdomen and pelvis. Radiation Dose CTDIVOL = (mGy): DLP = 1541.1 (mGy-cm)
--- NOTE | 2020-05-29 15:07 | ED_ITS ---
Documented by User: SUMMER Mejia 05/29/20 18:05 HPI - Abdominal Pain General: Chief Complaint: Abdominal Pain Stated Complaint: L SIDE PAIN Time Seen by Provider: 05/29/20 14:06 Source: patient Mode of arrival: ambulatory Limitations: no limitations History of Present Illness: HPI narrative: Pleasant 19-year-old female patient presents to the emergency department with left side flank abdominal pain. She reports history of colon cancer with hemicolectomy December 2019. She reports pain is similar to that when colon cancer was found. She reports called her oncologist at [facility], Dr. Conde, who advised her to come to the ED for scans of her belly. She reports nausea due to pain, states pain feels as a dull ache. MD elicited complaint: abdominal pain and flank pain (left) Pertinent past history: other (Colon cancer) Onset (ago): day(s) (7) Pain Consistency: intermittent and other (Now increasing) Location: LLQ and L flank Severity: moderate Quality: cramping, aching and dull Radiation: back Exacerbating factors: nothing Context: history of similar episodes Associated Symptoms: Reports anorexia, nausea and poor appetite; Denies change in stool character, chills, diarrhea, dysuria, fever(s) and vomiting Review of Systems General: Reports: 10 or more systems reviewed and unremarkable except in HPI and below Const: Denies: fever(s), chills or diaphoresis Eyes: Denies: blurry vision or eye redness ENMT: Denies: throat pain, dental pain or disequilibrium Card: Denies: chest pain, palpitations or irregular heart rhythm Resp: Denies: dyspnea, productive cough, non-productive cough or wheezing GI: Reports: abdominal pain (Left flank) and nausea; Denies: vomiting, diarrhea or change in stool character : Denies: difficulty voiding or dysuria Musc: Reports: back pain; Denies: neck pain Skin/Breast: Denies: rash or pruritus Neuro: Denies: headache(s), weakness in extremities or behavioral changes Psych: Reports: anxiety; Denies: depression Edgardo/Lymph: Denies: easy bruising PFS ED PFSH: Medical History Iron deficiency anemia Surgical History History of wisdom tooth extraction Status post left hemicolectomy Family History Mother Cancer Ovarian Father CAD (coronary artery disease) Sister Anemia Denies family history of Anesthesia complication Bleeding disorder Social History Smoking and tobacco status: never smoked Alcohol intake: never Household members: family Marital status: Single Current occupational status: unemployed History of recent travel: Yes Details: Up state by [place] Out of state: No Out of country: No Physical Exam Const: COMMON NORMALS: no acute distress, patient oriented x3, healthy appearing and alert GENERAL APPEARANCE: cooperative, comfortable and well hydrated HENMT: COMMON NORMALS: normocephalic, Normal external nose present and moist oral mucous membranes HEAD & SCALP: normocephalic NOSE: Normal external nose present Eye: COMMON NORMALS: Equal, round and reactive pupils present and EOMs intact bilaterally GENERAL EYE: appearance normal, both eyes and all related structures PUPIL: Yes Equal, round and reactive pupils present Neck/C-Spine: COMMON NORMALS: full ROM and no lymphadenopathy GENERAL: Yes normal visual inspection and Yes trachea midline CERVICAL SPINE: Yes cervical ROM normal Lymph: LYMPHATIC: no lymphadenopathy noted Chest: COMMONS NORMALS: normal inspection of the chest Resp: COMMON NORMALS: normal respiratory effort and clear to auscultation bilaterally EFFORT & INSPECTION: Yes able to speak in complete sentences AUSCULTATION: clear to auscultation bilaterally Cardio: COMMON NORMALS: regular rhythm, S1 normal heart sound present, S2 normal heart sound present and Peripheral pulses 2+ throughout RHYTHM: regular rhythm HEART SOUNDS: S1 normal heart sound present and S2 normal heart sound present PERIPHERAL PULSES: Peripheral pulses 2+ throughout GI: COMMON NORMALS: Normal to inspection, nondistended, normoactive bowel sounds present, Soft to palpation and non-tender (Not able to reproduce tenderness to the belly) INSPECTION: Yes normal to inspection PALPATION: Yes Soft to palpation : COMMON NORMALS: Yes no CVA tenderness BLADDER/KIDNEY EXAM: Yes no CVA tenderness Back/Pelvis: COMMON NORMALS: no CVA tenderness and thoracic and lumbar spine normal to inspection THORACIC SPINE/UPPER BACK: Yes normal to inspection, No thoracic spinal tenderness, No paraspinal muscle tenderness and No paraspinal muscle spasm LUMBAR SPINE/LOWER BACK: Yes normal to inspection, No lumbar spinal tenderness, No paraspinal muscle tenderness and No paraspinal muscle spasm Extremity: COMMON NORMALS: normal to inspection and capillary refill normal Neuro: BERNARDO COMA SCALE: document GCS findings [employer] coma scale eye o pening: Spontaneous Bernardo coma scale verbal response: Orientated Bernardo coma scale motor response: Obey commands [employer] coma scale total score: 15 COMMON NORMALS: patient oriented x3 and no focal motor deficits SENSORIUM/ORIENTATION: Yes alert MOTOR EXAM: 5/5 motor strength present throughout Psych: COMMON NORMALS: mental status grossly normal, Normal thought process present and cooperative ACTIVITY/MOTOR BEHAVIOR: Yes appropriate eye contact THOUGHT PROCESS: Normal thought process present Skin: COMMON NORMALS: no rashes or lesions noted and turgor normal GENERAL SKIN EXAM: no rashes or lesions noted and turgor normal Course ED course: 19-year-old female patient presents to the emergency department w ith onset of left side abdominal pain. History of colon cancer with hemicolectomy December 2019. Surgery completed by Dr. Desai here at [facility], reports transferred to [facility] under the direction of Dr. Conde for oncologic care. I have attempted to contact [facility] in regards to abnormal CT scan of the abdomen pelvis with findings of 1. 6.5 x 4.7 x 7.8 cm enhancing mass in the left paracolic gutter invading the adjacent peritoneal surface. Case discussed with Dr. Lindo, transfer of care at this time as I am awaiting contact from them. Spoke with Mrs. Barakat, reports pain controlled at this time and nausea has resolved. She is aware of abnormal findings on the CT completed today. Vital Signs: Vital signs: Vital Signs Temperature 98.9 F 05/29/20 20:08 Pulse Rate 95 05/29/20 20:08 Respiratory Rate 16 05/29/20 20:44 Blood Pressure 118/88 05/29/20 20:08 Pulse Oximetry 100 05/29/20 20:08 MDM - Abdominal Pain Lab Data: Labs: Lab Results 05/29/20 05/29/20 05/29/20 Range/Units 14:47 15:25 15:25 WBC 11.6 H (4.0-10.0) 10^3/ uL RBC 4.80 (4.1-5.3) 10^6/u L Hgb 14.1 (11.5-15.3) g/dL Hct 44.1 (37.0-47.0) % MCV 91.9 (81-99) fL MCH 29.4 (28.0-34.0) pg MCHC 32.0 (30.0-36.0) g/dL RDW 12.7 (12.1-15.1) % Plt Count 442 H (130-400) 10^3/c mm MPV 8.6 (7.4-10.4) fL Neut % (Auto) 65.0 % Lymph % (Auto) 22.3 % Clinch % (Auto) 8.9 % Eos % (Auto) 2.6 % Baso % (Auto) 0.8 % Neut # (Auto) 7.56 (1.8-7.7) 10^3/u L Lymph # (Auto) 2.6 (0.8-4.8) 10^3/u L Clinch # (Auto) 1.0 H (0.2-0.9) 10^3/u L Eos # (Auto) 0.3 (0.0-0.8) 10^3/u L Baso # (Auto) 0.1 (0.0-0.1) 10^3/u L Nucleated RBC % (a uto) 0 % Nucleated RBCs # 0.0 /100WBC Sodium 137 (136-145) mmol/L Potassium 4.1 (3.5-5.1) mmol/L Chloride 100 (98-107) mmol/L Carbon Dioxide 26 (22-29) mmol/L Anion Gap 15.1 (5-19) BUN 10 (6-20) mg/dL Creatinine 0.5 (0.5-0.9) mg/dL GFR Calculation 155.7 H (90-130) mL/min Glucose 89 (65-115) mg/dL Calculated Osmolal ity 283 L (285-295) mOsm/k g Calcium 10.1 (8.5-10.5) mg/dL Total Bilirubin 0.3 (0.15-1.2) mg/dL AST 14 (0-32) U/L ALT 21 (0-33) U/L Alkaline Phosphata se 51 (35-105) IU/L Total Protein 7.9 (6.6-8.7) g/dL Albumin 4.5 (3.5-5.2) g/dL Globulin 3.4 (1.3-4.6) g/dL Lipase 48 (13-60) U/L Urine HCG, Qual Negative (Negative) Discharge Plan Discharge Prescriptions: No Action Tylenol 325 mg Tablet 325 mg PO QID PRN (Reason: PAIN/HEADACHE) RF: 0 Referrals: Rob Benito MD [Primary Care Provider] - Coding Level of Care Code ED Contour Path Tape Mill Operator for Chg Fwd Exam Comprehensive Documented by User: Linn Lindo MD 05/30/20 12:47 HPI - Abdominal Pain General: Chief Complaint: Abdominal Pain Stated Complaint: L SIDE PAIN Time Seen by Provider: 05/29/20 14:06 PFSH ED PFSH: Medical History Iron deficiency anemia Surgical History History of wisdom tooth extraction Status post left hemicolectomy Family History Mother Cancer Ovarian Father CAD (coronary artery disease) Sister Anemia Denies family history of Anesthesia complication Bleeding disorder Social History Smoking and tobacco status: never smoked Alcohol intake: never Household members: family Marital status: Single Current occupational status: unemployed History of recent travel: Yes Details: Up state by [place] Out of state: No Out of country: No Course ED course: I assumed care of this patient at shift change. I spoke to Dr. Hamilton, on-call for Dr. Conde for oncology at [facility]. She requested that I send the patient up there tonight as a transfer. We discussed the possibility of antibiotics but there was no evidence of colitis on the CT and at this point we will only start those if she were to develop a fever or any infectious signs. I discussed this with the patient and she understands the plan. She is agreeable to transfer. I gave her a dose of pain medicine before she left to go to [place]. Vital Signs: Vital signs: Vital Signs Temperature 98.9 F 05/29/20 20:08 Pulse Rate 95 05/29/20 20:08 Respiratory Rate 16 05/29/20 20:44 Blood Pressure 118/88 05/29/20 20:08 Pulse Oximetry 100 05/29/20 20:08 MDM - Abdominal Pain Lab Data: Labs: Lab Results 05/29/20 05/29/20 05/29/20 Range/Units 14:47 15:25 15:25 WBC 11.6 H (4.0-10.0) 10^3/ uL RBC 4.80 (4.1-5.3) 10^6/u L Hgb 14.1 (11.5-15.3) g/dL Hct 44.1 (37.0-47.0) % MCV 91.9 (81-99) fL MCH 29.4 (28.0-34.0) pg MCHC 32.0 (30.0-36.0) g/dL RDW 12.7 (12.1-15.1) % Plt Count 442 H (130-400) 10^3/c mm MPV 8.6 (7.4-10.4) fL Neut % (Auto) 65.0 % Lymph % (Auto) 22.3 % Clinch % (Auto) 8.9 % Eos % (Auto) 2.6 % Baso % (Auto) 0.8 % Neut # (Auto) 7.56 (1.8-7.7) 10^3/u L Lymph # (Auto) 2.6 (0.8-4.8) 10^3/u L Clinch # (Auto) 1.0 H (0.2-0.9) 10^3/u L Eos # (Auto) 0.3 (0.0-0.8) 10^3/u L Baso # (Auto) 0.1 (0.0-0.1) 10^3/u L Nucleated RBC % (a uto) 0 % Nucleated RBCs # 0.0 /100WBC Sodium 137 (136-145) mmol/L Potassium 4.1 (3.5-5.1) mmol/L Chloride 100 (98-107) mmol/L Carbon Dioxide 26 (22-29) mmol/L Anion Gap 15.1 (5-19) BUN 10 (6-20) mg/dL Creatinine 0.5 (0.5-0.9) mg/dL GFR Calculation 155.7 H (90-130) mL/min Glucose 89 (65-115) mg/dL Calculated Osmolal ity 283 L (285-295) mOsm/k g Calcium 10.1 (8.5-10.5) mg/dL Total Bilirubin 0.3 (0.15-1.2) mg/dL AST 14 (0-32) U/L ALT 21 (0-33) U/L Alkaline Phosphata se 51 (35-105) IU/L Total Protein 7.9 (6.6-8.7) g/dL Albumin 4.5 (3.5-5.2) g/dL Globulin 3.4 (1.3-4.6) g/dL Lipase 48 (13-60) U/L Urine HCG, Qual Negative (Negative) Discharge Plan Discharge Prescriptions: No Action Tylenol 325 mg Tablet 325 mg PO QID PRN (Reason: PAIN/HEADACHE) RF: 0 Referrals: Rob Benito MD [Primary Care Provider] - Coding Level of Care Code ED Contour Path Tape Mill Operator for Chg Fwd Exam Comprehensive
[2020-05-29] MEDS: sodium chloride 0.9% 500 ML 999 ML IV (15:26)
[2020-05-29] MEDS: ondansetron 2 mg/ML SDV 2 mL 4 MG IVP ×2 (15:27→20:45)
[2020-05-29 15:37] LABS: Basophils # 0.1 10^3/uL (0.0-0.1); Basophils % 0.8 %; Eosinophils # 0.3 10^3/uL (0.0-0.8); Eosinophils % 2.6 %; Hematocrit 44.1 % (37.0-47.0); Hemoglobin 14.1 g/dL (11.5-15.3); Lymphocytes # 2.6 10^3/uL (0.8-4.8); Lymphocytes % 22.3 %; Mean Corpuscular Hemoglobin 29.4 pg (28.0-34.0); Mean Corpuscular Volume 91.9 fL (81-99); Mean Platelet Volume 8.6 fL (7.4-10.4); Monocytes % 8.9 %; Neutrophils # 7.56 10^3/uL (1.8-7.7); Nucleated Red Blood Cells % 0 %; Platelet Count 442 10^3/cmm (130-400); Red Cell Distribution Width 12.7 % (12.1-15.1); White Blood Count 11.6 10^3/uL (4.0-10.0)
[2020-05-29 15:45] VITALS: RESP 14
[2020-05-29] MEDS: morphine 4 mg/mL SDV 1 mL 2 MG IVP (15:45)
[2020-05-29] MEDS: iohexol 300 mg/mL 100 mL Btl IV (16:16)
[2020-05-29 16:23] LABS: Alanine Aminotransferase 21 U/L (0-33); Albumin Level 4.5 g/dL (3.5-5.2); Alkaline Phosphatase 51 IU/L (35-105); Anion Gap 15.1 (5-19); Aspartate Amino Transferase 14 U/L (0-32); Blood Urea Nitrogen 10 mg/dL (6-20); Calcium 10.1 mg/dL (8.5-10.5); Carbon Dioxide 26 mmol/L (22-29); Chloride 100 mmol/L (98-107); Globulin 3.4 g/dL (1.3-4.6); Glomerular Filtration Rate 155.7 mL/min (90-130); Glucose 89 mg/dL (65-115); Lipase 48 U/L (13-60); Osmolality Calculated 283 mOsm/kg (285-295); Potassium 4.1 mmol/L (3.5-5.1); Sodium 137 mmol/L (136-145); Total Bilirubin 0.3 mg/dL (0.15-1.2); Total Protein 7.9 g/dL (6.6-8.7)
[2020-05-29 19:24] VITALS: BP 118/84; PULSE 95; RESP 14; TEMP 36.6; O2SAT 97
--- NOTE | 2020-05-29 19:29 | PC.NURSE ---
Attempt to call report. Martinez reports cannot give report until after 19:30 and request to call back
[2020-05-29 20:08] VITALS: BP 118/88; PULSE 95; RESP 14; TEMP 37.2; O2SAT 100
[2020-05-29 20:44] VITALS: RESP 16
[2020-05-29] MEDS: morphine 4 mg/mL SDV 1 mL IVP (20:44)
--- NOTE | 2020-05-29 20:52 | PC.NURSE ---
Pt out via EMS at this time in stable condition.
== END 2020-05-29 20:52 ==
PROVIDERS: Emergency Provider Nurse Practitioner Family; PCP Family Medicine
DX: R10.9 Unspecified abdominal pain (principal); Z85.038 Personal history of other malignant neoplasm of large intestine
CPT/HCPCS: 12345; 74177; 80053; 81025; 83690; 85025; 96374; 96375; 96376; 99283; J2270; J2405; J7040; Q9967

== ENCOUNTER 2020-08-20 08:13 | Outpatient (CLI) | payer MEDICAID, SELFPAY ==
[2020-08-20 09:05] LABS: Basophils # 0.1 10^3/uL (0.0-0.1); Basophils % 0.8 %; Eosinophils # 0.2 10^3/uL (0.0-0.8); Eosinophils % 2.6 %; Hematocrit 46.5 % (37.0-47.0); Hemoglobin 15.2 g/dL (11.5-15.3); Lymphocytes # 0.6 10^3/uL (0.8-4.8); Mean Corpuscular HGB Conc 32.7 g/dL (30.0-36.0); Mean Corpuscular Hemoglobin 31.2 pg (28.0-34.0); Mean Corpuscular Volume 95.5 fL (81-99); Mean Platelet Volume 8.6 fL (7.4-10.4); Monocytes # 0.8 10^3/uL (0.2-0.9); Monocytes % 11.9 %; Neutrophils # 4.99 10^3/uL (1.8-7.7); Neutrophils % 75.2 %; Nucleated Red Blood Cells % 0 %; Platelet Count 270 10^3/cmm (130-400); Red Blood Count 4.87 10^6/uL (4.1-5.3); Red Cell Distribution Width 14.6 % (12.1-15.1); White Blood Count 6.6 10^3/uL (4.0-10.0)
[2020-08-20 09:29] LABS: Alanine Aminotransferase 48 U/L (0-33); Albumin Level 4.5 g/dL (3.5-5.2); Alkaline Phosphatase 55 IU/L (35-105); Anion Gap 14.2 (5-19); Aspartate Amino Transferase 33 U/L (0-32); Blood Urea Nitrogen 10 mg/dL (6-20); Calcium 9.6 mg/dL (8.5-10.5); Carbon Dioxide 26 mmol/L (22-29); Chloride 101 mmol/L (98-107); Globulin 3.7 g/dL (1.3-4.6); Glomerular Filtration Rate 154.3 mL/min (90-130); Glucose 91 mg/dL (65-115); Osmolality Calculated 283 mOsm/kg (285-295); Potassium 4.2 mmol/L (3.5-5.1); Sodium 137 mmol/L (136-145); Total Bilirubin 0.4 mg/dL (0.15-1.2); Total Protein 8.2 g/dL (6.6-8.7)
--- NOTE | 2020-08-20 11:47 | ONC FU_ITS ---
Dr. Ward follow up note Patient: Alivia Tony Unit #: [id number]: 2000 Dicatated By: Jaydon Ward M.D.Date of Visit:Aug 20, 2020 Onc Med Follow-up/Prog Note History of Present Illness: Ms. Alivia Tony, is a 20-year-old female with history of progressive weakness and fatigue, shortness of breath and palpitation on exertion went to [facility] [place], 2019 and found to have hemoglobin around 6 g and she was given unit of packed RBC with that her hemoglobin improved to 7.5 g As per patient before this admission she was not aware of anemia in fact last year in December 2018 she went to [facility] with bleeding per rectum at that time her hemoglobin was normal and she was treated conservatively. And since then she has been having dark-colored stools and off and on rectal bleed and also having irregular and off and on heavy menses and recently also start taking nonsteroidal for costochondritis. Chest x-ray showed no abnormality except slight left hemidiaphragm elevation for which she underwent CT scan of abdomen and pelvis on November 29, 2019 which showed peripheral enhancing right ovarian hemorrhagic or corpus luteum cyst measuring 1.6 x 1.9 cm with surrounding fluid. No other abnormality seen.Except mild diffuse fatty infiltration of the liver Patient denies any peripheral numbness, denies any jaundice, denies any weight loss, denies any abdominal pain, denies any history of gastric surgery, denies any hematuria, denies any night sweats, denies any weight loss. Because of history of dark-colored stools and bleeding per rectum, GI was consulted, Dr. Desai Performed colonoscopy on December 25, 2019 which showed in the mid transverse colon, completely obstructing large size, fungating, friable, malignant appearing circumferential, villous 3 cm x 6 cm mass and mass was not bleeding but biopsy was obtained which confirmed moderately differentiated invasive adenocarcinoma Underwent left hemicolectomy on January 06, 2020, final pathology report showed poorly differentiated adenocarcinoma of colon with extension into pericolonic fat. Cauterized tumor at inked peripheral resection margin with no definite serosa on dissection. pT4a (tumor invades visceral peritoneum) No vascular or perineural invasion seen. 26 benign lymph nodes with reactive changes. pN0 , Stage IIbOn May 30, 2020 patient went to [facility] with left flank pain CT scan of abdomen showed mass in the left upper quadrant 8 x 4.6 cm invading adjacent peritoneum and abdominal wall. Abuts wall of left descending colon with loss of fat plane, displacing the colon medially without obstruction and CT scan of chest showed 4 mm groundglass opacity in right upper lobe, CEA was 47.2 patient was referred to [facility] for evaluation and there she was treated with combined chemoradiation started on June 25, 2020, her CEA was 82.5 and she completed her combined chemo radiation therapy with oral Xeloda on August 10, 2020. And her CEA decreased to 27.2. Patient was evaluated by Dr. Russ who recommended FOLFOX or Capox for 4 months followed by evaluation at [place]. Came for follow-up, denies any specific complaints, no fever chills, no nausea or vomiting, no diarrhea constipation, no abdominal pain, tolerating combined chemoradiation well, now being considered for further systemic therapy as per recommendation by Dr. Russ. Medications: There is no information available for Current Medications - Patient. Allergies: No Known Allergies. Review of Systems: Constitutional - Appetite is good and weight is stable. No fever, night sweats, or hot flashes. Energy level is good, ENMT - No sinus congestion/drainage. No mouth sores. No sore throat or difficulty swallowing, Hematologic/Lymphatic - No abnormal bruising or bleeding, Respiratory - Negative for shortness of breath. No cough. No pleuritic pain or hemoptysis, Cardiovascular - No angina pain. No palpitations, Gastrointestinal - No nausea or vomiting. No heartburn or acid reflux. No diarrhea. Negative for constipation and dark stool, Genitourinary (F) - No dysuria or hematuria. No urinary frequency. No urgency or incontinence, Musculoskeletal - Pt denies pain, Neurologic - No headache, no dizziness. No numbness or tingling. No other focal neurologic symptoms, Psychiatric - No anxiety. Negative for depression. No insomnia. Vital Signs: Performed on Aug 20, 2020 09:37 Height - 69.00 in Weight - 244.4 lbs (HIGH) BSA - 2.25 sq.m BMI - 36.09 (HIGH) Temperature - 97.4 F (LOW) Pulse - 83 /min Respiration - 16 /min BP - 111/82 mm(hg) O2 Sat - 100 % Pain - 0 Performance Status: 0 - Fully active, able to carry on all predisease activities without restrictions. (ECOG) Physical Examination: ENMT - No mouth sores, no thrush, no jaundice, Respiratory - Lungs are clear to auscultation, Cardiovascular - Regular rate and rhythm of heart , Abdomen - Soft, bowel sounds present, Extremities - No visible edema. Lab/Imaging: Most recent lab results are not available for this patient. Impression: Moderately differentiated invasive adenocarcinoma involving mid transverse colon polyp colonoscopy done on December 25, 2019, Status post left hemicolectomy done on January 06, 2020, final pathology report showed poorly differentiated adenocarcinoma, tumor invades through muscularis propria into pericolonic fat with circumferential or radial margins involved but proximal and distal margins were clear. pT4a No lymphovascular/perineural invasion seen. 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 Follow-up CT scan of chest abdomen pelvis done on April 28, 2020 at [place] showed loss of plane between tumor in the descending colon and left abdominal wall and on May 30, 2020 patient went to ER with left flank pain CT scan of abdomen pelvis done showed 8 x 4.6 cm mass in left upper quadrant invading adjacent peritoneum and abdominal wall. Abuts wall of left descending colon with loss of fat plane. Displacing colon medially without obstruction. And 4 mm groundglass opacity in the right upper lobe of lung, CEA was 47.2, patient was started on combined chemoradiation with oral Xeloda to the left upper quadrant abdominal mass on June 25, 2020 and completed on August 10, 2020 CT scan of abdomen shows mild diffuse fatty infiltration of the liver otherwise no other abnormality seen except peripheral enhancing right ovarian hemorrhagic or corpus luteum cyst measuring 1.9 x 1.6 cm iron deficiency anemia probably multifactorial including chronic blood loss due to heavy menses or off and on GI bleeding From newly diagnosed colon cancer other possibility could be malabsorption. Generalized weakness fatigue, dyspnea on exertion due to severe iron deficiency anemia diagnosed on November 29, 2019 with a hemoglobin around 6 g status post 1 unit of packed RBC, now on oral iron twice a day since then. Right ovarian hemorrhagic cyst,Seen by AGRICULTURAL EQUIPMENT DESIGN ENGINEER, Dr. Rivera and no work-up rather observation recommended Plan: Discussed with patient regarding her labs white blood count 6.6 hemoglobin 15.2 hematocrit 46.5 platelets 270,000 CMP within normal limits except ALT 48, AST 33 Clinically, patient is doing well with no new signs symptoms recently completed combined chemoradiation with oral Xeloda to left upper quadrant mass. Now being considered for systemic chemotherapy with FOLFOX or Capox as per recommendation. Patient opted for Capox all the side effects, possible benefits associate with oxaliplatin/Xeloda including but not limited to bone marrow suppression, nausea vomiting, hair loss, mouth sores, diarrhea, skin rash, jaundice, hand-foot syndrome, peripheral neuropathy, intolerance to cold beverages and cold., Further teaching will done by chemotherapy nurse. We will consider oxaliplatin 130 mg/m??? on day 1 and capecitabine 1000 mg/m??? twice daily daily for 2 weeks and repeat cycle every 3 weeks x 4 or 5 followed by evaluation at [place]. Patient return to clinic 1 week after chemotherapy is initiated with CBC CMP and CEA Signed By: Jaydon Ward M.D. <<Signature on File>>
== END 2020-08-20 08:14 | disposition home or self-care (01) ==
LOC: ONCMED 08:17
PROVIDERS: PCP Family Medicine; Visit Provider Internal Medicine Hematology & Oncology
DX: C18.4 Malignant neoplasm of transverse colon (principal); D50.8 Other iron deficiency anemias; D63.0 Anemia in neoplastic disease; N83.201 Unspecified ovarian cyst, right side; Z15.09 Genetic susceptibility to other malignant neoplasm; Z90.49 Acquired absence of other specified parts of digestive tract; Z92.21 Personal history of antineoplastic chemotherapy; Z92.3 Personal history of irradiation; Z79.899 Other long term (current) drug therapy
CPT/HCPCS: 36415; 80053; 85025; 99214

== ENCOUNTER → 2020-09-10 09:34 | Outpatient (BNVA) | payer MEDICAID, SELFPAY | PROVIDERS: PCP Family Medicine; Visit Provider Surgery | DX: Z01.818 Encounter for other preprocedural examination (principal); C18.9 Malignant neoplasm of colon, unspecified | CPT/HCPCS: 87635 ==

== ENCOUNTER 2020-09-15 06:08 | Day surgery (SDC) | payer MEDICAID, SELFPAY ==
[2020-09-14 13:51] VITALS: BMI 36.5
[2020-09-15] VITALS (7 sets, daily range): BP systolic 122–150; BP diastolic 66–97; PULSE 76–96; RESP 16–18; TEMP 36.2–36.6; O2SAT 96–100
--- NOTE | 2020-09-15 | SCC_ITS ---
Procedure Done: Placement of right internal jugular vein of PowerPort under ultrasound guidance. 51.0 seconds of fluoroscopic guidance, for a cumulative dose of 13.60 mGy, was provided to Dr. Desai by the radiology department. C-arm images of the chest were saved for the patient's permanent record. [facility]
--- NOTE | 2020-09-15 06:19 | SC_ITS ---
WS: [id number] C-arm fluoroscopy for placement of right internal jugular venous catheter, 09/15/2020 Clinical Data: PowerPort Placement Comparison: None. Findings: Insertion of right internal jugular venous catheter. SC/C-arm FL for CVA [id number] Impression: Right internal jugular venous catheter ending in superior vena cava.
[2020-09-15 06:30] LABS: OR HCG Qualitative Urine Negative (Negative)
[2020-09-15] MEDS: sodium chloride 0.9% 1,000 ML 30 ML IV (06:43)
--- NOTE | 2020-09-15 06:49 | ANES.PREANE2 ---
Pre-Anesthetic Assessment Pre-Anesthetic Assessment: Height/Weight: Height 1.73 m Weight 108.862 kg Temp Pulse Resp BP 97.8 F 85 16 139/93 09/15/20 06:32 09/15/20 06:32 09/15/20 06:32 09/15/20 06:32 Preop Diagnosis: Colon cancer Proposed Procedure: Operation Date: 09/15/20 07:40 Proposed Procedures p Portacath Placement 29615 C18.9(Not Applicable) - Gigi Desai MD Was Beta Farrukh taken within 24 hours: N/A Last intake: Intake Last Liquid Date 09/14/20 Last Liquid Time 20:00 Last Solid Date 09/14/20 Last Solid Time 20:00 Social: Social History: No alcohol and No tobacco Exam: Pre-Anes Outpt Exam: alert, oriented x 3, clear to auscultation bilaterally and regular rate & rhythm Airway: Submandibular: WNL Cervical ROM: WNL MP: 2 Dentition: Full CV/HEM: CV/HEM: Anemia GI: Comments: Colon CA Metabolic: Metabolic: Morbid obesity Anesthetic Plan: ASA status: 2 Anesthesia: MAC Risk of > 500 ml blood loss (7ml/kg in children): No Meds/Allergies Current Medications: Current Medications Generic Name Dose Route Start Last Admin Trade Name Freq PRN Reason Stop Dose Admin Sodium Chloride 1,000 mls @ 30 ml s/hr 09/15/20 06:30 09/15/20 06:43 Sodium Chloride 0.9% IV 09/16/20 06:29 30 mls/hr .Q24H JAMEL Administration PFSH Anesthesia PFSH: Medical History Iron deficiency anemia Surgical History History of wisdom tooth extraction Status post left hemicolectomy Family History Mother Cancer Ovarian Father CAD (coronary artery disease) Sister Anemia Denies family history of Anesthesia complication Bleeding disorder Social History Smoking and tobacco status: never smoked Alcohol intake: never Household members: family Marital status: Single Current occupational status: unemployed History of recent travel: Yes Details: Up state by [place] Out of state: No Out of country: No Female Reproductive History: Date of last menstrual period: 06/02/20 Data Anesthesia Other Labs: Laboratory Results - last 48 hr 09/15/20 06:15 Urine HCG, Qual Negative Cardiac Studies: No Data to Display
--- NOTE | 2020-09-15 07:27 | W.PM.OPSUD ---
Surgery/Procedure H&P Update DATE OF PROCEDURE: September 15, 2020 DATE H&P PERFORMED: 09/09/20 H&P UPDATE INFORMATION: I have reviewed H&P completed within last 30 days, I have examined patient prior to procedure and No changes to prior documentation PREOP DIAGNOSIS: Colon cancer PRIMARY INDICATION FOR PROCEDURE: The same PLANNED PROCEDURE: Operation Date: 09/15/20 07:40 Proposed Procedures p Portacath Placement 39442 C18.9(Not Applicable) - Gigi Desai MD
[2020-09-15] MEDS: heparin, porcine 1,000 unit/mL INJ 10 mL 10000 UNIT IRRIGATION (08:23)
--- NOTE | 2020-09-15 08:49 | P.OP_ITS ---
Operative Report Date of procedure: September 15, 2020 Pre-op Diagnosis: Colon cancer Post-op diagnosis: same Post-op Findings: Difficult passage of the wire via the right subclavian vein and procedure was switched via transright internal jugular vein under ultrasound guidance. Procedure Done: Placement of right internal jugular vein of PowerPort under ultrasound guidance. All fluoroscopic and ultrasound interpretation was done by me through the whole entire procedure Implants: Right internal jugular vein PowerPort Specimens removed/disposition: No specimens Surgeon: Gigi Desai Spinning Bath Patroller: biodiesel process control technician Kyle Circulating nurse Niyah Anesthesia: MAC (channel specialist Vick) Estimated blood loss (mL): 15 Condition: stable Disposition: same day Brief History: This is a pleasant 21 years old female patient diagnosed with adenocarcinoma of the left side of the colon and undergone laparoscopic left hemicolectomy by me about 6 months ago and patient is requiring a port for chemotherapy. Plan of care; After thorough history physical examination and reviewing the chart and reviweing the images iwth my personal intrepretation.I counseled the patient for Port-A-Cath placement, indications, risks including pneumothorax that may require Chest tube(s) placement and potential injury of major vascular structures that may require Thoractomy, benefits,indications and alternatives were all discussed with the patient, patient understands and is interested to proceed. Rationale was carefully and clearly discussed with the patient.Appropriate informed consent have been reviewed and signed. Procedure: U/S Guided IJ access Patient was identified in the holding area and taken to the operative room and placed in supine position IV propofol was given by the anesthesia provider ,both arms were tucked,Time-out was done verifying the patient's name/date of /planned procedure and destination after the procedure, all were in agreement. SCDs confirmed to be functioning, preoperative antibiotics administered per protocol, and beta soto protocol was confirmed, appropriate positioning of the patient was done by me. Medications were reviewed to assess for anticoagulant usage. Risks and benefits and prevention of central line associated blood stream infection (CLABSI) were discussed with the patient/CPOA, and a consent was obtained. Monitors were in place and monitored throughout the procedure. All necessary supplies were a vailable prior to start. Hand hygiene was completed prior to starting. Maximum barrier technique was utilized including a sterile gown, sterile gloves with a hat and mask. Site was was prepped with [chlorhexidine] and a full body drape was placed. 5 mL of 2% lidocaine was injected into the skin with a 25 gauge needle. Prep& drape was done under the usual sterile technique, lidocaine 2% was inj ected at the site of the stick, started by right subclavian vein and venous flow was obtained from the first stick, attempted to pass the wire unfortunately I was not able to pass and keep on curling towards the right internal jugular vein. In spite of positioning the patient in different positions.I decided to abort and deviate my attention towards the right internal jugular vein access. Pressure was held for 5 minutes at the right subclavian vein stick site. Under ultrasound guidance right Internal Juglar vein stick that retrieved venous blood was obtained from the first stick, there was no evidence of intraluminal thrombosis, interpretation was done by me through the whole entire procedure, a guidewire was then threaded and under the guidance of fluoroscopy position was confirmed to be in the IVC and with my interpretation,there was no PVC changes, at that point the guidewire was secured to the drapes with a hemostat and the needle was taken out. Attention was then deviated towards creation of a pocket for the port were lidocaine 2% was injected using an 15 blade knife skin incision was created at the right upper Chest ,dissection using the Bovie to create a pocket for the Port-A-Cath to be accommodated, hemostasis was secured, after the port being appropriately flushed it was inserted into the pocket and a tunneler was used to accommodate the catheter of the port cath to be delivered through the incision first created at the site of the stick, yet I had to create a transit incision at the root of the neck at the right side to the patient's anatomy and then I was able to retrieve the catheter at the index site of the stick. At that point under fluoroscopy an estimated length was measured for the catheter and was cut at the designed level, followed by that a dilator with the sheath introduced onto the guidewire the dilator and the wire were retrieved and the catheter of the port was introduced via the sheath where it was peeled off and the catheter maintained to be in the SVC that was confirmed with fluoroscopy, and the fluoroscopy interpretation was done by me throughout the entire procedure. Multiple flushes of the port was done by diluted and concentrate heparin and I was able to retrieve without difficulty venous blood as well as appropriate flushing was achieved. The port was secured in its pocket,3-0 Vicryl deep subdermal interrupted suture s, skin was then closed by 4-0 Monocryl as subcuticular closure. Followed by surgical glue and dry dressing. The stick site was closed by 3-0 Vicryl followed by 4 oh Monocryl and surgical glue was used followed by dressing. Patient tolerated the procedure well was taken to the recovery area Count was correct at the end of the procedure I was present for the whole entire procedure
[2020-09-15] MEDS: lidocaine 2% INJ 20 mL INJECTION (08:50)
--- NOTE | 2020-09-15 08:56 | XRR_ITS ---
PROCEDURE INFORMATION: Exam: XR Chest Exam date and time: 09/15/2020 9:15 AM Age: 20 years old Clinical indication: Device placement; Other: Status post placement of powerport right internal jugular; Prior surgery; Surgery date: Post-operative (0-2 days) TECHNIQUE: Imaging protocol: XR of the chest Views: 1 view. COMPARISON: CR XR chest 2V* [id number] 11/29/2019 7:29 PM FINDINGS: Lungs: Unremarkable. No consolidation. Pleural spaces: Unremarkable. No pleural effusion. No pneumothorax. Heart/Mediastinum: Unremarkable. No cardiomegaly. Vasculature: MediPort catheter is present in satisfactory position with the tip projecting in the SVC. Bones/joints: Unremarkable. XR/XR chest 1V portable [id number] IMPRESSION: No significant cardiopulmonary abnormality.
--- NOTE | 2020-09-15 09:11 | P.PCN_ITS ---
PACU note PACU note: VSS, Good respiratory effort, report to STOCK PREPARATION SUPERVISOR Post-Anesthesia Exam: awake
--- NOTE | 2020-09-15 09:11 | PM.PACU ---
PACU note PACU note: VSS, Good respiratory effort, report to YARD JOCKEY Post-Anesthesia Exam: awake
--- NOTE | 2020-09-15 10:17 | ANE.PACU2 ---
Inpatient post-anesthesia follow up: Airway intact: Yes Vital signs: Temperature 97.1 F Pulse Rate 76 Respiratory Rate 16 Blood Pressure 144/84 Pulse Oximetry 100 Oxygen Delivery Me thod Room Air Oxygen Flow Rate Fraction of Inspir ed Oxygen Hydration adequate: Yes Nausea and vomiting: No Pain level: 2 Mental status: Baseline
== END 2020-09-15 10:25 | disposition home or self-care (01) ==
PROVIDERS: PCP Family Medicine; Visit Provider Surgery
PROC: (CPT 36561; principal; 2020-09-15 07:40)
DX: C18.9 Malignant neoplasm of colon, unspecified (principal); E66.01 Morbid (severe) obesity due to excess calories; Z68.36 Body mass index [BMI] 36.0-36.9, adult
CPT/HCPCS: 36561; 71045; 76000; 77001; 81025; 84703; C1788; J0690; J1644; J2250; J2704; J3010; J7030

== ENCOUNTER 2020-09-21 14:18 | Outpatient (CLI) | payer MEDICAID, SELFPAY ==
[2020-09-21 15:17] LABS: Basophils # 0.1 10^3/uL (0.0-0.1); Basophils % 1.1 %; Eosinophils # 0.7 10^3/uL (0.0-0.8); Eosinophils % 8.8 %; Hematocrit 43.6 % (37.0-47.0); Hemoglobin 14.1 g/dL (11.5-15.3); Lymphocytes # 0.8 10^3/uL (0.8-4.8); Lymphocytes % 9.3 %; Mean Corpuscular HGB Conc 32.3 g/dL (30.0-36.0); Mean Corpuscular Hemoglobin 30.9 pg (28.0-34.0); Mean Corpuscular Volume 95.6 fL (81-99); Mean Platelet Volume 8.8 fL (7.4-10.4); Monocytes # 0.7 10^3/uL (0.2-0.9); Monocytes % 8.2 %; Neutrophils # 5.87 10^3/uL (1.8-7.7); Neutrophils % 71.7 %; Nucleated Red Blood Cells % 0 %; Platelet Count 334 10^3/cmm (130-400); Red Blood Count 4.56 10^6/uL (4.1-5.3); Red Cell Distribution Width 13.2 % (12.1-15.1); White Blood Count 8.2 10^3/uL (4.0-10.0)
[2020-09-21 15:42] LABS: Carcinoembryonic Antigen 2.4 ng/mL (0.0-4.7)
[2020-09-21 15:53] LABS: Alanine Aminotransferase 30 U/L (0-33); Albumin Level 4.2 g/dL (3.5-5.2); Alkaline Phosphatase 66 IU/L (35-105); Anion Gap 11.3 (5-19); Aspartate Amino Transferase 15 U/L (0-32); Blood Urea Nitrogen 13 mg/dL (6-20); Calcium 9.2 mg/dL (8.5-10.5); Carbon Dioxide 28 mmol/L (22-29); Chloride 103 mmol/L (98-107); Globulin 3.7 g/dL (1.3-4.6); Glomerular Filtration Rate 154.3 mL/min (90-130); Glucose 133 mg/dL (65-115); Osmolality Calculated 288 mOsm/kg (285-295); Potassium 4.3 mmol/L (3.5-5.1); Sodium 138 mmol/L (136-145); Total Bilirubin 0.3 mg/dL (0.15-1.2); Total Protein 7.9 g/dL (6.6-8.7)
== END 2020-09-21 14:19 | disposition home or self-care (01) ==
LOC: ONCMED 14:19
PROVIDERS: PCP Family Medicine; Visit Provider Internal Medicine Hematology & Oncology
DX: C18.4 Malignant neoplasm of transverse colon (principal); D50.9 Iron deficiency anemia, unspecified
CPT/HCPCS: 36591; 80053; 82378; 85025

== ENCOUNTER 2020-09-22 05:25 | Outpatient (CLI) | payer MEDICAID, SELFPAY ==
[2020-09-22] MEDS: dextrose 5% 250 ML 75 ML (10:35)
[2020-09-22] MEDS: palonosetron 0.25 mg/5 mL SDV IVP (10:37)
--- NOTE | 2020-09-24 09:48 | ONC FU_ITS ---
Dr. Ward follow up note Patient: Alivia Tony Unit #: [id number]: 2000 Dicatated By: Jaydon Ward M.D.Date of Visit:Sep 22, 2020 Onc Med Follow-up/Prog Note History of Present Illness: Ms. Alivia Tony, is a 20-year-old female with history of progressive weakness and fatigue, shortness of breath and palpitation on exertion went to [facility] on November 29, 2019 and found to have hemoglobin around 6 g and she was given unit of packed RBC with that her hemoglobin improved to 7.5 g As per patient before this admission she was not aware of anemia in fact last year in December 2018 she went to [facility] with bleeding per rectum at that time her hemoglobin was normal and she was treated conservatively. And since then she has been having dark-colored stools and off and on rectal bleed and also having irregular and off and on heavy menses and recently also start taking nonsteroidal for costochondritis. Chest x-ray showed no abnormality except slight left hemidiaphragm elevation for which she underwent CT scan of abdomen and pelvis on November 29, 2019 which showed peripheral enhancing right ovarian hemorrhagic or corpus luteum cyst measuring 1.6 x 1.9 cm with surrounding fluid. No other abnormality seen.Except mild diffuse fatty infiltration of the liver Patient denies any peripheral numbness, denies any jaundice, denies any weight loss, denies any abdominal pain, denies any history of gastric surgery, denies any hematuria, denies any night sweats, denies any weight loss. Because of history of dark-colored stools and bleeding per rectum, GI was consulted, Dr. Desai Performed colonoscopy on December 25, 2019 which showed in the mid transverse colon, completely obstructing large size, fungating, friable, malignant appearing circumferential, villous 3 cm x 6 cm mass and mass was not bleeding but biopsy was obtained which confirmed moderately differentiated invasive adenocarcinoma Underwent left hemicolectomy on January 06, 2020, final pathology report showed poorly differentiated adenocarcinoma of colon with extension into pericolonic fat. Cauterized tumor at inked peripheral resection margin with no definite serosa on dissection. pT4a (tumor invades visceral peritoneum) No vascular or perineural invasion seen. 26 benign lymph nodes with reactive changes. pN0 , Stage IIbOn May 30, 2020 patient went to [facility] with left flank pain CT scan of abdomen showed mass in the left upper quadrant 8 x 4.6 cm invading adjacent peritoneum and abdominal wall. Abuts wall of left descending colon with loss of fat plane, displacing the colon medially without obstruction and CT scan of chest showed 4 mm groundglass opacity in right upper lobe, CEA was 47.2 patient was referred to [facility] for evaluation and there she was treated with combined chemoradiation started on June 25, 2020, her CEA was 82.5 and she completed her combined chemo radiation therapy with oral Xeloda on August 10, 2020. And her CEA decreased to 27.2. Patient was evaluated by Dr. Russ who recommended FOLFOX or Capox for 4 months followed by evaluation at [facility]. came For follow-up, denies any specific complaints, no fever chills, no nausea or vomiting, no diarrhea or constipation, no sore throat, no dysuria or hematuria, no abdominal pain. Patient is ready to start her systemic chemotherapy with Capox regimen Medications: There is no information available for Current Medications - Patient. Allergies: No Known Allergies. Review of Systems: Review of Systems is not available for this patient. Vital Signs: Performed on Sep 22, 2020 08:58 Height - 69.00 in Weight - 250.4 lbs (HIGH) BSA - 2.27 sq.m BMI - 36.98 (HIGH) Temperature - 97 F (LOW) Pulse - 91 /min Respiration - 17 /min BP - 121/77 mm(hg) O2 Sat - 99 % Pain - 1 Performance Status: 0 - Fully active, able to carry on all predisease activities without restrictions. (ECOG) Physical Examination: ENMT - No mouth sores, no thrush, no jaundice, Respiratory - Lungs are clear to auscultation, Cardiovascular - Regular rate and rhythm of heart, Abdomen - Soft, bowel sounds present, Extremities - No visible edema. Lab/Imaging: Test performed on Aug 20, 2020 08:49 Sodium 137 mmol/L Potassium 4.2 mmol/L Chloride 101 mmol/L CO2 26 mmol/L Anion Gap 14.2 BUN 10 mg/dL Creatinine 0.5 mg/dL Cr Clearance (Est) 308.87 mL/min eGFR 154.3 mL/min Glucose 91 mg/dL Osmolality - Calculated 283 mOsm/kg Calcium 9.6 mg/dL Protein, Total 8.2 g/dL Albumin 4.5 g/dL Globulin 3.7 g/dL Bilirubin, Total 0.4 mg/dL ALT (SGPT) 48 U/L AST (SGOT) 33 U/L Alkaline Phosphatase 55 IU/L WBC 6.6 10 3/uL RBC 4.87 10 6/uL HGB 15.2 g/dL HCT 46.5 % MCV 95.5 fL MCH 31.2 pg MCHC 32.7 g/dL RDW 14.6 % Platelet Count 270 10 3/cmm MPV 8.6 fL Neutrophils 4.99 10 3/uL Lymphocytes 0.6 10 3/uL Monocytes 0.8 10 3/uL Eosinophils 0.2 10 3/uL Basophils 0.1 10 3/uL Neutrophil % 75.2 % Lymphocyte % 9.0 % Monocyte % 11.9 % Eosinophil % 2.6 % Basophils % 0.8 % NRBC % 0 % Impression: Moderately differentiated invasive adenocarcinoma involving mid transverse colon polyp colonoscopy done on December 25, 2019, Status post left hemicolectomy done on January 06, 2020, final pathology report showed poorly differentiated adenocarcinoma, tumor invades through muscularis propria into pericolonic fat with circumferential or radial margins involved but proximal and distal margins were clear. pT4a No lymphovascular/perineural invasion seen. 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 Follow-up CT scan of chest abdomen pelvis done on April 28, 2020 at [facility] showed loss of plane between tumor in the descending colon and left abdominal wall and on May 30, 2020 patient went to ER with left flank pain CT scan of abdomen pelvis done showed 8 x 4.6 cm mass in left upper quadrant invading adjacent peritoneum and abdominal wall. Abuts wall of left descending colon with loss of fat plane. Displacing colon medially without obstruction. And 4 mm groundglass opacity in the right upper lobe of lung, CEA was 47.2, patient was started on combined chemoradiation with oral Xeloda to the left upper quadrant abdominal mass on June 25, 2020 and completed on August 10, 2020 CT scan of abdomen shows mild diffuse fatty infiltration of the liver otherwise no other abnormality seen except peripheral enhancing right ovarian hemorrhagic or corpus luteum cyst measuring 1.9 x 1.6 cm iron deficiency anemia probably multifactorial including chronic blood loss due to heavy menses or off and on GI bleeding From newly diagnosed colon cancer other possibility could be malabsorption. Generalized weakness fatigue, dyspnea on exertion due to severe iron deficiency anemia diagnosed on November 29, 2019 with a hemoglobin around 6 g status post 1 unit of packed RBC, now on oral iron twice a day since then. Right ovarian hemorrhagic cyst,Seen by [employer], Dr. Rivera and no work-up rather observation recommended Plan: Discussed with patient regarding her labs white blood count 8.2 hemoglobin 14.1 hematocrit 43.6 platelets 334,000 CMP within normal limits CEA 2.4 Clinically, patient doing well with no new signs symptoms, now being started on systemic chemotherapy with oral Xeloda and oxaliplatin. She will receive her first dose of 3 weekly cisplatin today and then she will start her oral Xeloda for next 14 days today too. Patient was advised to avoid exposure to cold, or icy beverages next 24 to 48 hours after oxaliplatin infusion. And then she will return to clinic in 2 weeks with CBC CMP Signed By: Jaydon Ward M.D. <<Signature on File>>
== END 2020-09-22 05:26 | disposition home or self-care (01) ==
LOC: ONCMED 05:27
PROVIDERS: PCP Family Medicine; Visit Provider Internal Medicine Hematology & Oncology
DX: C18.6 Malignant neoplasm of descending colon (principal); D50.9 Iron deficiency anemia, unspecified; D63.0 Anemia in neoplastic disease; N83.201 Unspecified ovarian cyst, right side; Z15.09 Genetic susceptibility to other malignant neoplasm; Z92.3 Personal history of irradiation
CPT/HCPCS: 96367; 96413; 96415; 99215; J1100; J2469; J9263

== ENCOUNTER 2020-10-06 05:56 | Outpatient (CLI) | payer MEDICAID, SELFPAY ==
[2020-10-06 09:08] LABS: Basophils # 0.1 10^3/uL (0.0-0.1); Basophils % 0.7 %; Eosinophils # 0.5 10^3/uL (0.0-0.8); Eosinophils % 5.3 %; Hematocrit 41.2 % (37.0-47.0); Hemoglobin 13.4 g/dL (11.5-15.3); Lymphocytes # 0.8 10^3/uL (0.8-4.8); Lymphocytes % 9.5 %; Mean Corpuscular HGB Conc 32.5 g/dL (30.0-36.0); Mean Corpuscular Hemoglobin 31.4 pg (28.0-34.0); Mean Corpuscular Volume 96.5 fL (81-99); Mean Platelet Volume 8.6 fL (7.4-10.4); Monocytes % 11.1 %; Neutrophils # 6.24 10^3/uL (1.8-7.7); Neutrophils % 72.6 %; Nucleated Red Blood Cells % 0 %; Platelet Count 338 10^3/cmm (130-400); Red Blood Count 4.27 10^6/uL (4.1-5.3); Red Cell Distribution Width 13.9 % (12.1-15.1); White Blood Count 8.6 10^3/uL (4.0-10.0)
[2020-10-06 09:22] LABS: Alanine Aminotransferase 36 U/L (0-33); Albumin Level 3.9 g/dL (3.5-5.2); Alkaline Phosphatase 74 IU/L (35-105); Anion Gap 11.9 (5-19); Aspartate Amino Transferase 18 U/L (0-32); Blood Urea Nitrogen 13 mg/dL (6-20); Calcium 8.6 mg/dL (8.5-10.5); Carbon Dioxide 25 mmol/L (22-29); Chloride 103 mmol/L (98-107); Globulin 3.3 g/dL (1.3-4.6); Glomerular Filtration Rate 154.3 mL/min (90-130); Glucose 100 mg/dL (65-115); Osmolality Calculated 282 mOsm/kg (285-295); Potassium 3.9 mmol/L (3.5-5.1); Sodium 136 mmol/L (136-145); Total Bilirubin 0.2 mg/dL (0.15-1.2); Total Protein 7.2 g/dL (6.6-8.7)
--- NOTE | 2020-10-18 17:10 | ONC FU_ITS ---
[facility] Patient Note Patient: Alivia Tony Unit #: [id number]: [id number] Dictated By: Anibal RangelDate of Visit: Oct 06, 2020 Onc MED Follow-Up/Prog Note Chief Complaint: Iron deficiency anemia Adenocarcinoma onf Desending Colon History of Present Illness: Ms. Tony is a 20-year-old female with history of progressive weakness and fatigue, shortness of breath and palpitation on exertion. She went to [facility] on November 29, 2019 and found to have hemoglobin around 6 g and she was given unit of packed RBC with that her hemoglobin improved to 7.5 g. As per patient before this admission she was not aware of anemia. She reports in December 2018, she went to [facility] with bleeding per rectum at that time her hemoglobin was normal and she was treated conservatively. And since then she has been having dark-colored stools and off and on rectal bleed and also having irregular and off and on heavy menses and recently also start taking nonsteroidal for costochondritis. Chest x-ray showed no abnormality except slight left hemidiaphragm elevation. She underwent CT scan of abdomen and pelvis on November 29, 2019 which showed peripheral enhancing right ovarian hemorrhagic or corpus luteum cyst measuring 1.6 x 1.9 cm with surrounding fluid. No other abnormality seen-Except mild diffuse fatty infiltration of the liver. Ms Tony denies any peripheral numbness, denies any jaundice, denies any weight loss, denies any abdominal pain, denies any history of gastric surgery, denies any hematuria, denies any night sweats, denies any weight loss. Due to her history of dark-colored stools and bleeding per rectum, GI was consulted. Dr. Desai Performed colonoscopy on December 25, 2019 which showed in the mid transverse colon, completely obstructing large size, fungating, friable, malignant appearing circumferential, villous 3 cm x 6 cm mass. The mass was not bleeding but biopsy was obtained which confirmed moderately differentiated invasive adenocarcinoma. She then underwent left hemicolectomy on January 06, 2020. The final pathology report showed poorly differentiated adenocarcinoma of colon with extension into pericolonic fat. Cauterized tumor at inked peripheral resection margin with no definite serosa on dissection. pT4a (tumor invades visceral peritoneum). No vascular or perineural invasion seen. 26 benign lymph nodes with reactive changes. pN0 , Stage IIb. On May 30, 2020 patient went to [facility] with left flank pain CT scan of abdomen showed mass in the left upper quadrant 8 x 4.6 cm invading adjacent peritoneum and abdominal wall. The mass abuts the wall of the left descending colon with loss of fat plane, displacing the colon medially, without obstruction. CT scan of chest showed 4 mm groundglass opacity in right upper lobe. CEA was 47.2 patient was referred to [facility] for evaluation. She was treated with combined chemoradiation starting on June 25, 2020. Her CEA was 82.5. She completed her combined chemo radiation therapy with oral Xeloda on August 10, 2020. Her CEA decreased to 27.2. Ms Tony was evaluated by Dr. Russ who recommended FOLFOX or Capox for 4 months followed by evaluation at [place]. She began her first cycle of CAPOX on 09/22/2020. Ms Tony is here today for followup. This is day 15 of her first cycle of CAPOX. She had cold induced neuropathy as soon as she left after her first dose of oxaliplatin. She states she had mouth and throat numbness and swelling that last for 2-3 days. It has resolved now. She denies any nausea or vomiting. She denies any diarrhea or constipation. She has not had any fever or chills. She denies any mouth sores or skin changes. She states her appetite is good and her energy is good. Her ECOG is 0. Past Medical History: Ms. Tony's medical history is unremarkable. Past Surgical History: Colonoscopy EGD [place] teeth extraction Allergies: No Known Allergies. Medications: Capecitabine 1800 mg twice daily, Tylenol 325 2 tablets every 6 hours as needed pain Compazine 10 mg every 4 6 as needed nausea. And oxycodone 5 mg as needed for pain. Family History: Ms. Tony's father is alive: coronary artery disease. Ms. Tony's maternal grandmother is : cancer of unknown origin. Social History: Ms. Tony is single and she is an unknown. Ms. Tony has never smoked. She has no history of drinking. Ms. Tony reports the following support systems: lives with spouse, significant other, family, or friends, supportive family/friends willing to assist with needs, and adequate transportation available for expected visits. Her diet consists of regular meals. She indicates her activity level as: regular exercise. Vital Signs: Performed on Oct 06, 2020 10:04 Height - 69.00 in Weight - 252.6 lbs (HIGH) BSA - 2.28 sq.m BMI - 37.30 (HIGH) Temperature - 98.1 F (LOW) Pulse - 82 /min Respiration - 18 /min BP - 121/78 mm(hg) O2 Sat - 99 % Pain - 0,0 - Fully active, able to carry on all predisease activities without restrictions. (ECOG) Physical Examination: Constitutional Alert, oriented, no acute distress. Skin pink, warm and dry. Head Normocephalic; atraumatic. Eyes Conjunctivae and sclerae are clear and without icterus. Pupils are reactive and equal. ENMT No oral exudates, ulcers, masses, thrush or mucositis. Oropharynx clear. Tongue normal. Neck Supple without masses or thyromegaly. No jugular venous distension. Hematologic/Lymphatic No petechiae or purpura. No tender or palpable lymph nodes in the cervical or supraclavicular areas. Respiratory Lungs are clear to auscultation without rhonchi or wheezing. Cardiovascular Regular rate and rhythm of heart without murmurs,clicks, gallops or rubs. Breasts Abdomen Non-tender, non-distended, no masses or ascites. Good bowel sounds noted in all quads. No guarding or rebound tenderness. No pulsatile masses. Back/Spine Non-tender to palpation. Extremities No visible deformities, no cyanosis, clubbing or edema. Musculoskeletal No tenderness or swelling, normal range of motion without obvious weakness. Integumentary No rashes or lesions. Neurologic No sensory or motor deficits, normal cerebellar function, normal gait. Psychiatric Alert and oriented times three. Coherent speech. Verbalizes understanding of our discussions today. Impression: Moderately differentiated invasive adenocarcinoma involving mid transverse colon polyp colonoscopy done on December 25, 2019, Status post left hemicolectomy done on January 06, 2020, final pathology report showed poorly differentiated adenocarcinoma, tumor invades through muscularis propria into pericolonic fat with circumferential or radial margins involved but proximal and distal margins were clear. pT4a No lymphovascular/perineural invasion seen. 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 Follow-up CT scan of chest abdomen pelvis done on April 28, 2020 at [place] showed loss of plane between tumor in the descending colon and left abdominal wall and on May 30, 2020 patient went to ER with left flank pain CT scan of abdomen pelvis done showed 8 x 4.6 cm mass in left upper quadrant invading adjacent peritoneum and abdominal wall. Abuts wall of left descending colon with loss of fat plane. Displacing colon medially without obstruction. And 4 mm groundglass opacity in the right upper lobe of lung, CEA was 47.2, patient was started on combined chemoradiation with oral Xeloda to the left upper quadrant abdominal mass on June 25, 2020 and completed on August 10, 2020 CT scan of abdomen shows mild diffuse fatty infiltration of the liver otherwise no other abnormality seen except peripheral enhancing right ovarian hemorrhagic or corpus luteum cyst measuring 1.9 x 1.6 cm iron deficiency anemia probably multifactorial including chronic blood loss due to heavy menses or off and on GI bleeding From newly diagnosed colon cancer other possibility could be malabsorption. Generalized weakness fatigue, dyspnea on exertion due to severe iron deficiency anemia diagnosed on November 29, 2019 with a hemoglobin around 6 g status post 1 unit of packed RBC, now on oral iron twice a day since then. Right ovarian hemorrhagic cyst,Seen by [employer], Dr. Rivera and no work-up rather observation recommended Plan: PROBLEMS ADDRESSED TODAY 1. Mildly and differentiated invasive adenocarcinoma involving the mid transverse colon Ms. Tony underwent left hemicolectomy on January 06, 2020. The final pathology report showed poorly differentiated adenocarcinoma. The tumor invaded through the muscularis propria into the pericolonic fat with circumferential radial margins involved but proximal and distal margins were clear. There was no lymphovascular/perineural invasion seen. 0 out of 26 lymph nodes show metastatic disease. 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 She had follow-up CT of the chest abdomen pelvis on 04/28/2020 at [place] which showed loss of plane between tumor and the descending colon in the left abdominal wall. May 30, 2020. She went to the ER with left flank pain and CT scan there showed 8 x 4.6 cm mass in the left upper quadrant invading the adjacent peritoneum and abdominal wall. The mass was abutting the wall of the left descending colon with loss of fat plane. The colon was distended medially without obstruction. 4 mm groundglass opacity in the right upper lobe of the lung and her CEA was 47.2. Ms. Pablo was started on combined chemoradiation with oral Xeloda to the left upper quadrant abdominal mass on June 25, 2020. Her CEA at that time was 82.5. She completed this plan on August 10, 2020. She then began CAPOX on 09/22/2020 at which time her CEA was 2.4. The current plan is to leave her on the CAPOX for at least 2 months prior to consideration of surgical resection. A. Proceed with cycle 1 CAPOX. This is day 15. She has completed 14 days of capecitabine. She will be off now for 7 days. Her current dose is 1800 mg twice daily 14 days on and 7 days off. She is doing to 510 to 150 mg tablets twice daily for the 14 days on. B. Today's labs were reviewed in detail and discussed with Ms. Tony and a copy was given to her WBC 8.6, hemoglobin 13.4, platelets 3 and 34,000 ANC is 6240. Potassium 3.9 creatinine 0.5 ALT is 36 AST is normal at 18. C. Will plan to dose reduced oxaliplatin with next cycle due to severe neuropathy symptoms. D. She was reminded not to take grapefruit products with the Xeloda/capecitabine. E. She will return in 1 week for follow-up with CBC CMP and CEA. She will be due to start cycle 2 CAPOX at that time. 2. Iron deficiency anemia A. She received 2 doses of iron Injectafer on January 16 and then again on January 23. Since then her hemoglobin has remained within normal limits. Her hemoglobin prior to the Injectafer was 9.5. B. Dr. Ward's last office note indicated that the iron deficiency anemia was most likely multifactorial including chronic blood loss due to heavy menses off and on and her history of GI bleeding. Due to the newly diagnosed colon cancer the other possibility could be malabsorption. However she has not shown any anemia at present. We will continue to monitor her iron levels intermittently. 3. Right ovarian hemorrhagic cyst A. Noted on CT of the abdomen and pelvis from November 29, 2019. Measuring 1.9 x 1.6 cm. B. She was seen by Dr. Rivera and no further work-up but rather observation was recommended. C. She does continue to follow with [facility] for this. Follow-up plan A. Should be seen back as scheduled above. She is due back in 1 week. She will be due to resume her second cycle of [place] ox at that time. B. She will have a CBC CMP and CEA prior to her visit for lab monitoring due to the chemotherapy. C. Ms. Tony was instructed to contact us in interim should questions or problems arise. D. 65 minutes was spent [id number] with Mrs. Reese in regards to answering questions regarding plan of care, side effect identification and management as well as reviewing her records prior to her visit and post visit documentation. Signed By: Anibal Rangel-, AOCNP Jaydon Ward MD <<Signature on File>>
== END 2020-10-06 05:57 | disposition home or self-care (01) ==
LOC: ONCMED 05:57
PROVIDERS: Internal Medicine Hematology & Oncology; PCP Family Medicine; Visit Provider Nurse Practitioner
DX: C18.4 Malignant neoplasm of transverse colon (principal); D50.8 Other iron deficiency anemias; N83.201 Unspecified ovarian cyst, right side; N92.0 Excessive and frequent menstruation with regular cycle; R91.8 Other nonspecific abnormal finding of lung field; G62.0 Drug-induced polyneuropathy; T45.1X5A Adverse effect of antineoplastic and immunosuppressive drugs, initial encounter; Z15.09 Genetic susceptibility to other malignant neoplasm; Z79.899 Other long term (current) drug therapy; Z90.49 Acquired absence of other specified parts of digestive tract
CPT/HCPCS: 36591; 80053; 85025; 99215

== ENCOUNTER 2020-10-13 07:31 | Outpatient (CLI) | payer MEDICAID, SELFPAY ==
[2020-10-13 09:25] LABS: Basophils # 0.1 10^3/uL (0.0-0.1); Basophils % 0.9 %; Eosinophils # 0.4 10^3/uL (0.0-0.8); Eosinophils % 5.6 %; Hematocrit 42.4 % (37.0-47.0); Hemoglobin 13.8 g/dL (11.5-15.3); Lymphocytes # 0.7 10^3/uL (0.8-4.8); Lymphocytes % 10.7 %; Mean Corpuscular HGB Conc 32.5 g/dL (30.0-36.0); Mean Corpuscular Hemoglobin 31.7 pg (28.0-34.0); Mean Corpuscular Volume 97.2 fL (81-99); Mean Platelet Volume 8.6 fL (7.4-10.4); Monocytes # 0.7 10^3/uL (0.2-0.9); Monocytes % 10.8 %; Neutrophils # 4.62 10^3/uL (1.8-7.7); Neutrophils % 70.6 %; Nucleated Red Blood Cells % 0 %; Platelet Count 302 10^3/cmm (130-400); Red Blood Count 4.36 10^6/uL (4.1-5.3); Red Cell Distribution Width 14.6 % (12.1-15.1); White Blood Count 6.6 10^3/uL (4.0-10.0)
[2020-10-13 09:40] LABS: Alanine Aminotransferase 41 U/L (0-33); Albumin Level 4.3 g/dL (3.5-5.2); Alkaline Phosphatase 59 IU/L (35-105); Aspartate Amino Transferase 24 U/L (0-32); Blood Urea Nitrogen 8 mg/dL (6-20); Calcium 9.4 mg/dL (8.5-10.5); Carbon Dioxide 26 mmol/L (22-29); Chloride 103 mmol/L (98-107); Globulin 3.3 g/dL (1.3-4.6); Glomerular Filtration Rate 154.3 mL/min (90-130); Glucose 122 mg/dL (65-115); Osmolality Calculated 288 mOsm/kg (285-295); Sodium 139 mmol/L (136-145); Total Bilirubin 0.5 mg/dL (0.15-1.2); Total Protein 7.6 g/dL (6.6-8.7)
[2020-10-13] MEDS: palonosetron 0.25 mg/5 mL SDV IVP (11:10)
[2020-10-13] MEDS: dextrose 5% 250 ML IV (11:20)
--- NOTE | 2020-10-24 10:52 | ONC FU_ITS ---
[facility] Patient Note Patient: Alivia Tony Unit #: [id number]: 2000 Dictated By: Anibal RangelDate of Visit: Oct 13, 2020 Onc MED Follow-Up/Prog Note Chief Complaint: Iron deficiency anemia Colon Cancer History of Present Illness: Ms. Tony is a 20-year-old female with history of progressive weakness and fatigue, shortness of breath and palpitation on exertion. She went to [facility] on November 29, 2019 and found to have hemoglobin around 6 g and she was given unit of packed RBC with that her hemoglobin improved to 7.5 g. As per patient before this admission she was not aware of anemia in fact last year in December 2018 she went to [facility] with bleeding per rectum at that time her hemoglobin was normal and she was treated conservatively. And since then she has been having dark-colored stools and off and on rectal bleed and also having irregular and off and on heavy menses and recently also start taking nonsteroidal for costochondritis. Chest x-ray showed no abnormality except slight left hemidiaphragm elevation for which she underwent CT scan of abdomen and pelvis on November 29, 2019 which showed peripheral enhancing right ovarian hemorrhagic or corpus luteum cyst measuring 1.6 x 1.9 cm with surrounding fluid. No other abnormality seen-except mild diffuse fatty infiltration of the liver In review of her history, Ms Tony denies any peripheral numbness, denies any jaundice, denies any weight loss, denies any abdominal pain, denies any history of gastric surgery, denies any hematuria, denies any night sweats, denies any weight loss. Because of history of dark-colored stools and bleeding per rectum, GI was consulted, Dr. Desai Performed colonoscopy on December 25, 2019 which showed in the mid transverse colon, completely obstructing large size, fungating, friable, malignant appearing circumferential, villous 3 cm x 6 cm mass and mass was not bleeding but biopsy was obtained which confirmed moderately differentiated invasive adenocarcinoma Underwent left hemicolectomy on January 06, 2020, final pathology report showed poorly differentiated adenocarcinoma of colon with extension into pericolonic fat. Cauterized tumor at inked peripheral resection margin with no definite serosa on dissection. pT4a (tumor invades visceral peritoneum) No vascular or perineural invasion seen. 26 benign lymph nodes with reactive changes. pN0 , Stage IIb. On May 30, 2020 patient went to [facility] with left flank pain CT scan of abdomen showed mass in the left upper quadrant 8 x 4.6 cm invading adjacent peritoneum and abdominal wall. Abuts wall of left descending colon with loss of fat plane, displacing the colon medially without obstruction and CT scan of chest showed 4 mm groundglass opacity in right upper lobe, CEA was 47.2 patient was referred to [facility] for evaluation and there she was treated with combined chemoradiation started on June 25, 2020, her CEA was 82.5 and she completed her combined chemo radiation therapy with oral Xeloda on August 10, 2020. And her CEA decreased to 27.2. Patient was evaluated by Dr. Russ who recommended FOLFOX or Capox for 4 months followed by evaluation at [facility]. Ms Tony was encouraged to pursue chmotherapy for 4 months post surgery and began her first cycle of CAPOX on 09/22/2020. 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 She reported several neuropathy in her lips and felt like she was having trouble swallowing. The cold-induced neuropathy also bothered her hands and feet but was more severe and her neck and mouth/lips. She states is pretty well resolved at this point. She has a little residual stress to drink something super cold but states overall it is dramatically better. She states otherwise she felt like she did pretty good. She denies any mouth sores. She denies any shortness of breath orthopnea. She denies any fever or chills. She states that her bowels and bladder have been within normal for her. She denies any nausea or vomiting. She states she is eating good. Energy is fair. She does tire easily but recovers well with rest. She denies any recent COVID-19 exposure or pending testing. Her ECOG is 0. Past Medical History: Ms. Tony's medical history is unremarkable. Past Surgical History: Colonoscopy EGD [place] teeth extraction Allergies: No Known Allergies. Medications: Family History: Ms. Tony's father is alive: coronary artery disease. Ms. Tony's maternal grandmother is : cancer of unknown origin. Social History: Ms. Tony is single and she is an unknown. Ms. Tony has never smoked. She has no history of drinking. Ms. Tony reports the following support systems: lives with spouse, significant other, family, or friends, supportive family/friends willing to assist with needs, and adequate transportation available for expected visits. Her diet consists of regular meals. She indicates her activity level as: regular exercise. Review Of Symptoms: see above Vital Signs: Performed on Oct 13, 2020 10:30 Height - 69.00 in Weight - 251 lbs (LOW) BSA - 2.28 sq.m BMI - 37.07 (HIGH) Temperature - 97.1 F (LOW) Pulse - 97 /min Respiration - 17 /min BP - 129/85 mm(hg) O2 Sat - 99 % Pain - 0,0 - Fully active, able to carry on all predisease activities without restrictions. (ECOG) Physical Examination: Constitutional Alert, oriented, no acute distress. Skin pink, warm and dry. Head Normocephalic; atraumatic. Eyes Conjunctivae and sclerae are clear and without icterus. Pupils are reactive and equal. ENMT No oral exudates, ulcers, masses, thrush or mucositis. Oropharynx clear. Tongue normal. Neck Supple without masses or thyromegaly. No jugular venous distension. Hematologic/Lymphatic No petechiae or purpura. No tender or palpable lymph nodes in the cervical or supraclavicular areas. Respiratory Lungs are clear to auscultation without rhonchi or wheezing. Cardiovascular Regular rate and rhythm of heart without murmurs,clicks, gallops or rubs. Breasts Abdomen Non-tender, non-distended, no masses or ascites. Good bowel sounds noted in all quads. No guarding or rebound tenderness. No pulsatile masses. Back/Spine Non-tender to palpation. Extremities No visible deformities, no cyanosis, clubbing or edema. Musculoskeletal No tenderness or swelling, normal range of motion without obvious weakness. Integumentary No rashes or lesions. Neurologic No sensory or motor deficits, normal cerebellar function, normal gait. Psychiatric Alert and oriented times three. Coherent speech. Verbalizes understanding of our discussions today. Laboratory:Test performed on Oct 13, 2020 08:45 Sodium 139 mmol/L Potassium 4.0 mmol/L Chloride 103 mmol/L CO2 26 mmol/L Anion Gap 14.0 BUN 8 mg/dL Creatinine 0.5 mg/dL Cr Clearance (Est) 319.2300 mL/min eGFR 154.3 mL/min Glucose 122 mg/dL Osmolality - Calculated 288 mOsm/kg Calcium 9.4 mg/dL Protein, Total 7.6 g/dL Albumin 4.3 g/dL Globulin 3.3 g/dL Bilirubin, Total 0.5 mg/dL ALT (SGPT) 41 U/L AST (SGOT) 24 U/L Alkaline Phosphatase 59 IU/L WBC 6.6 10 3/uL RBC 4.36 10 6/uL HGB 13.8 g/dL HCT 42.4 % MCV 97.2 fL MCH 31.7 pg MCHC 32.5 g/dL RDW 14.6 % Platelet Count 302 10 3/cmm MPV 8.6 fL Neutrophils 4.62 10 3/uL Lymphocytes 0.7 10 3/uL Monocytes 0.7 10 3/uL Eosinophils 0.4 10 3/uL Basophils 0.1 10 3/uL Neutrophil % 70.6 % Lymphocyte % 10.7 % Monocyte % 10.8 % Eosinophil % 5.6 % Basophils % 0.9 % NRBC % 0 % Impression: Moderately differentiated invasive adenocarcinoma involving mid transverse colon polyp colonoscopy done on December 25, 2019, Status post left hemicolectomy done on January 06, 2020, final pathology report showed poorly differentiated adenocarcinoma, tumor invades through muscularis propria into pericolonic fat with circumferential or radial margins involved but proximal and distal margins were clear. pT4a No lymphovascular/perineural invasion seen. 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 Follow-up CT scan of chest abdomen pelvis done on April 28, 2020 at [facility] showed loss of plane between tumor in the descending colon and left abdominal wall and on May 30, 2020 patient went to ER with left flank pain CT scan of abdomen pelvis done showed 8 x 4.6 cm mass in left upper quadrant invading adjacent peritoneum and abdominal wall. Abuts wall of left descending colon with loss of fat plane. Displacing colon medially without obstruction. And 4 mm groundglass opacity in the right upper lobe of lung, CEA was 47.2, patient was started on combined chemoradiation with oral Xeloda to the left upper quadrant abdominal mass on June 25, 2020 and completed on August 10, 2020. CT ssan of abdomen shows mild diffuse fatty infiltration of the liver otherwise no other abnormality seen except peripheral enhancing right ovarian hemorrhagic or corpus luteum cyst measuring 1.9 x 1.6 cm iron deficiency anemia probably multifactorial including chronic blood loss due to heavy menses or off and on GI bleeding From newly diagnosed colon cancer other possibility could be malabsorption. Generalized weakness fatigue, dyspnea on exertion due to severe iron deficiency anemia diagnosed on November 29, 2019 with a hemoglobin around 6 g status post 1 unit of packed RBC. She did take oral iron twice a day but was given 2 doses on Injectafer on 01/17/2020 and 01/24/2020. Right ovarian hemorrhagic cyst,Seen by OPERATIONS RESEARCH ANALYST, Dr. Rivera and no work-up rather observation recommended Plan: PROBLEMS ADDRESSED TODAY 1. Moderately differentiated invasive adenocarcinoma involving the mid transverse colon. Status post left hip colectomy on January 06, 2020. Her final pathology report showed poorly differentiated adenocarcinoma, tumor invaded through the muscularis propria into the pericolonic fat with circumferential radial margins involved. The proximal and distal margins were clear. There was no endovascular/perineural invasion seen and 0 out of 26 lymph nodes showed metastatic disease. Dr. Ward reported her at stage IIb, dMMR heterozygous for C.1731G>A, pathogenic mutation in MLH1 gene???consistent with diagnosis of hereditary nonpolyposis colorectal cancer/Galindo syndrome. The report also indicated that she has a lifetime risk of colorectal cancer 50 to 82%; 25 to 60% for endometrial cancer; 6 to 13% for stomach cancer and 4-12 for ovarian cancer. She did have evidence on the CT of the chest abdomen pelvis from April 28, 2020 at [facility] showing loss of plane between tumor in the descending colon and left abdominal wall. On May 30, 2020 she went to the emergency room with left flank pain and that CT of the abdomen pelvis revealed a 8 x 4.6 cm mass in the left upper quadrant invading the adjacent peritoneum abdominal wall. It abutted the left descending wall with loss of fat plane. It did displace the colon medially without obstruction. There was a 4 mm groundglass opacity in the right upper lobe of the lung and her CEA was 47.2. She was started on chemoradiation with oral Xeloda to the left upper quadrant mass on June 20, 2020 and completed therapy on August 10, 2020. She has been advised to pursue systemic chemotherapy with Cape ox regimen. The current plan is to treat her for 4 months. She began her first cycle on September 22, 2020. She is tolerating it well with the exception of having some pretty significant cold-induced neuropathy in her lips/mouth/throat. It has also affected her hands and feet but the oral cavity has been the worst. A. We will proceed with cycle 2 CAPOX. Her oxaliplatin dose will reduce by 10% due to the severe neuropathy that she has been having. B. Capecitabine will remain at her current dose of 1800 mg twice daily for 14 days and then offer 7. She is on a 21-day cycle. AVOID GRAPEFRUIT PRODUCTS WITH XELODA. C. Continue current antiemetics as these are working well for her. D. She may have supportive care as needed for hydration or treatment of her neuropathy pain if it worsens. She did have trouble right after her chemotherapy administration with cycle 1. 2. 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 A. We will dose reduce the oxaliplatin by 10% today. B. She is been advised to avoid cold products for the next several days. C. We did discuss if she has further problems we could talk about using gabapentin for the nerve pain but would not want to put her on any more medications than necessary at this point. D. Dr. Ward had asked about possibly trying IV magnesium/calcium with her next regimen if at all possible. E. We will try dose reduction and see how she does with that and then determine follow-up plan with next cycle. 3. Follow-up plan A. She will have weekly interim counts. B. We will plan to see her back in 3 weeks with CBC CMP and CEA and pregnacy testing (due to age and child bearing potential) for consideration of cycle 3 CAPOX. C. Ms. Tony was instructed to contact us in interim should questions or problems arise. Signed By: Anibal Rangel-, AOP Jaydon Ward MD <<Signature on File>>
== END 2020-10-13 07:32 | disposition home or self-care (01) ==
PROVIDERS: PCP Family Medicine; Visit Provider Nurse Practitioner
DX: Z51.11 Encounter for antineoplastic chemotherapy (principal); C18.4 Malignant neoplasm of transverse colon; D50.9 Iron deficiency anemia, unspecified; G62.0 Drug-induced polyneuropathy; T45.1X5A Adverse effect of antineoplastic and immunosuppressive drugs, initial encounter; N83.201 Unspecified ovarian cyst, right side; N92.0 Excessive and frequent menstruation with regular cycle; Z79.899 Other long term (current) drug therapy; Z90.49 Acquired absence of other specified parts of digestive tract; Z15.09 Genetic susceptibility to other malignant neoplasm; Z92.3 Personal history of irradiation
CPT/HCPCS: 80053; 85025; 96367; 96375; 96413; 96415; 99214; J1100; J2469; J2930; J9263

== ENCOUNTER 2020-10-14 22:23 | Emergency (ER) | payer MEDICAID, SELFPAY ==
[2020-10-14 22:30] VITALS: BP 128/86; PULSE 84; RESP 17; TEMP 36.4; O2SAT 98; BMI 38.0
--- NOTE | 2020-10-14 22:47 | ED_ITS ---
HPI - Allergic Reaction General: Chief complaint: Allergic Reaction Stated complaint: SIDE EFFECTS FROM CHEMO UNABLE TO MOVE LEG Time Seen by Provider: 10/14/20 22:30 Source: patient Mode of arrival: ambulatory Limitations: no limitations History of Present Illness: HPI narrative: 20-year-old female has a history of colon cancer. She had a resection back in December and return of her cancer and just started chemo again. She states started new chemo 2 weeks ago and during the first dose she had a reaction with numbness. States she just received again 3 days ago that half the dose due to her previous reaction to states she been having numbness again. States that today she felt her right foot and fell in the sleep and she could not feel her foot or movement. She states that that is since resolved and she is now able to walk and has full feeling in her foot has no symptoms at this time but she was concerned at the time. Denies any back pain. Associated symptoms: Deny abdominal pain, nausea or vomiting Review of Systems Const: Denies: fever(s), chills, body aches or change in appetite Eyes: Denies: blurry vision or eye discomfort ENMT: Denies: throat pain or dental pain Card: Denies: chest pain Resp: Denies: dyspnea GI: Denies: abdominal pain, nausea, vomiting or diarrhea : Denies: dysuria Musc: Reports: muscle weakness Skin/Breast: Denies: rash Neuro: Reports: numbness in extremities and weakness in extremities Psych: Denies: depression Edgardo/Lymph: Denies: easy bruising All/Imm: Denies: urticaria PFSH ED PFSH: Medical History (Updated 10/14/20 @ 23:49 by Yesy Stafford MD) Iron deficiency anemia Surgical History History of wisdom tooth extraction Status post left hemicolectomy Family History Mother Cancer Ovarian Father CAD (coronary artery disease) Sister Anemia Denies family history of Anesthesia complication Bleeding disorder Social History Smoking and tobacco status: never smoked Alcohol intake: never Household members: family Marital status: Single Current occupational status: unemployed History of recent travel: Yes Details: [place] Out of state: No Out of country: No Female Reproductive History: Date of last menstrual period: 06/02/20 Physical Exam Const: COMMON NORMALS: no acute distress, patient oriented x3 and healthy appearing HENMT: COMMON NORMALS: normocephalic and atraumatic HEAD & SCALP: normocephalic and atraumatic Eye: COMMON NORMALS: Equal, round and reactive pupils present and EOMs intact bilaterally PUPIL: Yes Equal, round and reactive pupils present Neck/C-Spine: COMMON NORMALS: full ROM and supple Chest: COMMONS NORMALS: normal inspection of the chest and normal palpation of entire chest wall Resp: COMMON NORMALS: normal respiratory effort, No retractions, No use of accessory muscles and clear to auscultation bilaterally AUSCULTATION: clear to auscultation bilaterally Cardio: COMMON NORMALS: regular rate, regular rhythm and No murmurs present (Cardio) RATE: regular rate RHYTHM: regular rhythm GI: COMMON NORMALS: Normal to inspection, nondistended, normoactive bowel sounds present, Soft to palpation, non-tender and no masses PALPATION: Yes Soft to palpation Extremity: COMMON NORMALS: normal to inspection and full ROM Neuro: COMMON NORMALS: patient oriented x3, moves all extremities and no focal motor deficits GAIT: Yes Normal gait present MOTOR EXAM: 5/5 motor strength present throughout Psych: COMMON NORMALS: mental status grossly normal, Normal thought process present and cooperative THOUGHT PROCESS: Normal thought process present Skin: COMMON NORMALS: no rashes or lesions noted and no wounds GENERAL SKIN EXAM: no rashes or lesions noted Course Vital Signs: Vital signs: Vital Signs Temperature 97.6 F 10/14/20 22:30 Pulse Rate 84 10/14/20 22:30 Respiratory Rate 17 10/14/20 22:30 Blood Pressure 128/86 10/14/20 22:30 Pulse Oximetry 98 10/14/20 22:30 MDM - Allergic Reaction MDM Narrative: Medical decision making narrative: Patient presents here with low potassium likely causing the numbness in her foot. This could be due to her chemotherapy drugs. She denies any vomiting or diarrhea at this time. She is asymptomatic currently and will give her potassium here and potassium replacement for home. Informed her to eat potassium rich foods as well. She is to follow-up with PCP in 3 to 5 days to have her potassium rechecked. If she has any other symptoms she is to return immediately. She understands agrees to plan. Lab Data: Labs: Lab Results 10/14/20 10/14/20 Range/Units 23:15 23:15 WBC 9.4 (4.0-10.0) 10^3/ uL RBC 3.68 L (4.1-5.3) 10^6/u L Hgb 11.7 (11.5-15.3) g/dL Hct 36.1 L (37.0-47.0) % MCV 98.1 (81-99) fL MCH 31.8 (28.0-34.0) pg MCHC 32.4 (30.0-36.0) g/dL RDW 14.6 (12.1-15.1) % Plt Count 257 (130-400) 10^3/c mm MPV 8.6 (7.4-10.4) fL Neut % (Auto) 72.7 % Lymph % (Auto) 10.2 % [facility] % (Auto) 15.0 % Eos % (Auto) 1.0 % Baso % (Auto) 0.6 % Neut # (Auto) 6.80 (1.8-7.7) 10^3/u L Lymph # (Auto) 1.0 (0.8-4.8) 10^3/u L [facility] [place] [facility] # (Auto) 1.4 H (0.2-0.9) 10^3/u L Eos # (Auto) 0.1 (0.0-0.8) 10^3/u L Baso # (Auto) 0.1 (0.0-0.1) 10^3/u L Nucleated RBC % (a uto) 0 % Nucleated RBCs # 0.0 /100WBC Sodium 143 (136-145) mmol/L Potassium 2.6 L* (3.5-5.1) mmol/L Chloride 112 H (98-107) mmol/L Carbon Dioxide 21 L (22-29) mmol/L Anion Gap 12.6 (5-19) BUN 12 (6-20) mg/dL Creatinine 0.4 L (0.5-0.9) mg/dL GFR Calculation 199.6 H (90-130) mL/min Glucose 95 (65-115) mg/dL Calculated Osmolal ity 296 H (285-295) mOsm/k g Calcium 6.3 L (8.5-10.5) mg/dL Total Bilirubin 0.3 (0.15-1.2) mg/dL AST 22 (0-32) U/L ALT 32 (0-33) U/L Alkaline Phosphata se 42 (35-105) IU/L Total Protein 5.4 L (6.6-8.7) g/dL Albumin 3.2 L (3.5-5.2) g/dL Globulin 2.2 (1.3-4.6) g/dL Imaging Data^: Other CT: Attestation: I personally reviewed and interpreted this imaging study as follows: Radiologist's impression: [facility] [address] [address] Scan Report Signed Patient: Alivia Tony Unit #: [id number] : 2000 Age/Sex: 20 / F ADM Date: 10/14/20 Loc: ER Room/Bed: Attending Dr: Ordering Provider/Ordering MD: Yesy Stafford MD Date of Service: 10/14/20 Procedure(s): CT lumbar spine wo con* [id number] Accession Number(s): [id number] Report Number: [id number] PROCEDURE INFORMATION: Exam: CT Lumbar Spine Without Contrast Exam date and time: 10/14/2020 10:46 PM Age: 20 years old Clinical indication: Patient HX: Onset of foot numbness today; Additional info: R/O mets foot numbness colon CA HX TECHNIQUE: Imaging protocol: Computed tomography images of the lumbar spine without contrast. Radiation optimization: All CT scans at this facility use at least one of these dose optimization techniques: automated exposure control; mA and/or kV adjustment per patient size (includes targeted exams where dose is matched to clinical indication); or iterative reconstruction. COMPARISON: No relevant prior studies available. RADIATION DOSE METRICS: Total DLP (mGy-cm): 2501.61 FINDINGS: Vertebrae: There are 5 lumbar type vertebral bodies. There is normal vertebral body alignment. There are normal vertebral body heights. There is mild diffuse disc space narrowing throughout the lumbar spine. No fracture. L1-L2: Mild broad-based disc protrusion at L1-L2 with minimal canal stenosis but no foraminal narrowing. L2-L3: Mild broad-based disc protrusion at L2-L3 results in mild canal stenosis. No foraminal stenosis. L3-L4: Broad-based disc protrusion at L3-L4 resulting in mild canal stenosis without neural foraminal stenosis. L4-L5: Broad-based disc protrusion at L4-L5 resulting in mild canal stenosis. No foraminal stenosis. L5-S1: Minimal broad-based disc protrusion at L5-S1 without significant canal or neural foraminal stenosis. Sacrum/coccyx: Spina bifida occulta at S1. Soft tissues: Unremarkable. CT/CT lumbar spine wo con* [id number] IMPRESSION: 1. Mild degenerative disc disease, most severe at L3-L4 and L4-L5.. 2. No fracture. 3. Spina bifida occulta at S1. Discharge Plan Discharge Patient Disposition: Home Clinical Impression: Hypokalemia, Paresthesia Condition: Stable Prescriptions: New potassium chloride 20 mEq packet 40 meq PO TID 4 Days Qty: 30 RF: 0 No Action acetaminophen [Tylenol] 325 mg Tablet 325 mg PO QID PRN (Reason: PAIN/HEADACHE) RF: 0 Discharge Orders: Discharge ED (Routine); Ordered 10/15/20 Ordered By: Yesy Stafford Referrals: Rob Benito MD [Primary Care Provider] - 1-3 days Discharge Diet: Advance as tolerated Discharge Activity: Resume usual activity Patient Instructions: Hypokalemia (ED) Coding Level of Care Code ED Online Ad[employer] Manager for Chg Fwd Exam Comprehensive
[2020-10-14] MEDS: sodium chloride 0.9% 1,000 ML 999 ML IV (23:20)
[2020-10-14 23:22] LABS: Basophils # 0.1 10^3/uL (0.0-0.1); Basophils % 0.6 %; Eosinophils # 0.1 10^3/uL (0.0-0.8); Hematocrit 36.1 % (37.0-47.0); Hemoglobin 11.7 g/dL (11.5-15.3); Lymphocytes % 10.2 %; Mean Corpuscular HGB Conc 32.4 g/dL (30.0-36.0); Mean Corpuscular Hemoglobin 31.8 pg (28.0-34.0); Mean Corpuscular Volume 98.1 fL (81-99); Mean Platelet Volume 8.6 fL (7.4-10.4); Monocytes # 1.4 10^3/uL (0.2-0.9); Neutrophils % 72.7 %; Nucleated Red Blood Cells % 0 %; Platelet Count 257 10^3/cmm (130-400); Red Blood Count 3.68 10^6/uL (4.1-5.3); Red Cell Distribution Width 14.6 % (12.1-15.1); White Blood Count 9.4 10^3/uL (4.0-10.0)
[2020-10-14 23:43] LABS: Alanine Aminotransferase 32 U/L (0-33); Albumin Level 3.2 g/dL (3.5-5.2); Alkaline Phosphatase 42 IU/L (35-105); Anion Gap 12.6 (5-19); Aspartate Amino Transferase 22 U/L (0-32); Blood Urea Nitrogen 12 mg/dL (6-20); Calcium 6.3 mg/dL (8.5-10.5); Carbon Dioxide 21 mmol/L (22-29); Chloride 112 mmol/L (98-107); Globulin 2.2 g/dL (1.3-4.6); Glomerular Filtration Rate 199.6 mL/min (90-130); Glucose 95 mg/dL (65-115); Osmolality Calculated 296 mOsm/kg (285-295); Sodium 143 mmol/L (136-145); Total Bilirubin 0.3 mg/dL (0.15-1.2); Total Protein 5.4 g/dL (6.6-8.7)
[2020-10-14 23:46] LABS: Potassium 2.6 mmol/L (3.5-5.1)
[2020-10-15] MEDS: potassium chloride ER 20 mEq Tablet 40 MEQ PO (00:01)
== END 2020-10-15 00:35 | disposition home or self-care (01) ==
PROVIDERS: Emergency Provider Emergency Medicine; PCP Family Medicine
DX: R20.2 Paresthesia of skin (principal); E87.6 Hypokalemia; Z79.899 Other long term (current) drug therapy; Z85.038 Personal history of other malignant neoplasm of large intestine
CPT/HCPCS: 72131; 80053; 85025; 96360; 99283; J7030

== ENCOUNTER 2020-10-20 06:57 | Outpatient (CLI) | payer MEDICAID, SELFPAY ==
[2020-10-20 14:32] LABS: Basophils # 0.1 10^3/uL (0.0-0.1); Basophils % 0.7 %; Eosinophils # 0.3 10^3/uL (0.0-0.8); Eosinophils % 2.2 %; Hematocrit 40.8 % (37.0-47.0); Hemoglobin 13.5 g/dL (11.5-15.3); Lymphocytes # 1.2 10^3/uL (0.8-4.8); Lymphocytes % 10.1 %; Mean Corpuscular HGB Conc 33.1 g/dL (30.0-36.0); Mean Corpuscular Hemoglobin 31.6 pg (28.0-34.0); Mean Corpuscular Volume 95.6 fL (81-99); Mean Platelet Volume 8.9 fL (7.4-10.4); Monocytes # 1.5 10^3/uL (0.2-0.9); Monocytes % 12.4 %; Neutrophils # 8.57 10^3/uL (1.8-7.7); Neutrophils % 73.3 %; Nucleated Red Blood Cells % 0 %; Platelet Count 291 10^3/cmm (130-400); Red Blood Count 4.27 10^6/uL (4.1-5.3); Red Cell Distribution Width 13.3 % (12.1-15.1); White Blood Count 11.7 10^3/uL (4.0-10.0)
[2020-10-20 14:49] LABS: Alanine Aminotransferase 36 U/L (0-33); Albumin Level 4.1 g/dL (3.5-5.2); Alkaline Phosphatase 62 IU/L (35-105); Anion Gap 11.1 (5-19); Aspartate Amino Transferase 23 U/L (0-32); Blood Urea Nitrogen 9 mg/dL (6-20); Calcium 8.9 mg/dL (8.5-10.5); Carbon Dioxide 26 mmol/L (22-29); Chloride 104 mmol/L (98-107); Globulin 3.1 g/dL (1.3-4.6); Glomerular Filtration Rate 104.6 mL/min (90-130); Glucose 93 mg/dL (65-115); Osmolality Calculated 282 mOsm/kg (285-295); Potassium 4.1 mmol/L (3.5-5.1); Sodium 137 mmol/L (136-145); Total Bilirubin 0.3 mg/dL (0.15-1.2); Total Protein 7.2 g/dL (6.6-8.7)
== END 2020-10-20 06:58 | disposition home or self-care (01) ==
LOC: ONCMED 07:02
PROVIDERS: PCP Family Medicine; Visit Provider Internal Medicine Hematology & Oncology
DX: C18.4 Malignant neoplasm of transverse colon (principal); D50.9 Iron deficiency anemia, unspecified
CPT/HCPCS: 36591; 80053; 85025

== ENCOUNTER 2020-10-22 09:25 | Emergency (ER) | payer MEDICAID, SELFPAY ==
[2020-10-22 09:49] VITALS: BP 121/89; PULSE 126; RESP 16; TEMP 36.5; O2SAT 99; BMI 37.8
[2020-10-22 09:53] VITALS: BP 107/71; PULSE 90; RESP 18; O2SAT 97
--- NOTE | 2020-10-22 10:12 | ED_ITS ---
HPI - Female Genitourinary General: Chief complaint: Urogenital-Female Stated complaint: AB PAIN, VAGINAL BLEEDING Time Seen by Provider: 10/22/20 10:05 History of Present Illness: HPI Narrative: Patient presents with vaginal bleeding. Bleeding started last night after she used a silicone sex toy. Patient says bleeding is continued. She denies any pain. Patient also has pertinent history of colon cancer which had left side of her colon removed. And then she had a tumor come back to her abdominal wall here last year and they have treated that with radiation and chemo and she is currently on her chemo has 2 months left in treatment. She not had a period since April last year. Possibly had sex she says a month or so ago elicited complaint: vaginal bleeding Pertinent past history: other (Colon cancer and abdominal wall tumor) Onset (ago): hour(s) Severity: mild Vaginal discharge: none Vaginal bleeding: bright red Associated symptoms: Deny abdominal pain, headache(s) or nausea Date of Last Menstrual Period: 06/02/20 Review of Systems Const: Denies: fever(s), chills or body aches Eyes: Denies: change in vision or blurry vision ENMT: Denies: throat pain or nasal congestion Card: Denies: chest pain or dyspnea on exertion Resp: Denies: dyspnea, productive cough or non-productive cough GI: Denies: abdominal pain, nausea or vomiting : Reports: vaginal bleeding (After using a sex toy last night she started bleeding from her vagina bleed) and amenorrhea Musc: Denies: extremity pain Skin/Breast: Denies: rash Neuro: Denies: headache(s) Psych: Denies: anxiety or depression Edgardo/Lymph: Denies: easy bruising PFSH ED PFSH: Medical History (Updated 10/22/20 @ 11:19 by LEENA Guidry) Iron deficiency anemia Surgical History History of wisdom tooth extraction Status post left hemicolectomy Family History Mother Cancer Ovarian Father CAD (coronary artery disease) Sister Anemia Denies family history of Anesthesia complication Bleeding disorder Social History Smoking and tobacco status: never smoked Alcohol intake: never Household members: family Marital status: Single Current occupational status: unemployed History of recent travel: Yes Details: Up [place] by [place] Out of state: No Out of country: No Female Reproductive History: Date of last menstrual period: 06/02/20 Physical Exam Const: COMMON NORMALS: no acute distress Chest: OTHER: Port right upper side chest : SPECULUM EXAM - VAGINA: No laceration, No tenderness and No Vaginal discharge present SPECULUM EXAM - CERVIX: Yes Cervical os closed, Yes Cervical bleeding, Yes mucoid cervix and No Cervical tenderness present BIMANUAL EXAM - VAGINA & UTERUS: No Cervical tenderness present BIMANUAL EXAM - ADNEXA, OTHER: Yes normal adnexae (Hard to determined from size), No tender and Yes Other (There is a small amount of bright red blood in the vaginal vault is able to) Psych: COMMON NORMALS: mental status grossly normal Course Vital Signs: Vital signs: Vital Signs Temperature 97.7 F 10/22/20 09:49 Pulse Rate 104 H 10/22/20 10:52 Respiratory Rate 18 10/22/20 10:52 Blood Pressure 121/91 10/22/20 10:52 Pulse Oximetry 98 10/22/20 10:52 MDM - Female MDM Narrative: Medical decision making narrative: Blood work was negative urine showed some bacteria but no white blood cells did have blood in the urine. Pelvic exam I was not able to find any specific vaginal wall laceration there is mucus and a tiny bit of blood coming from the cervix. Ultrasound was negative for anything specific. Patient counseled told to return with PCP ER return here if worsening of symptoms symptoms do not stop after couple days. Lab Data: Labs: Lab Results 10/22/20 10/22/20 10/22/20 Range/Units 10:34 10:42 10:49 WBC 8.1 (4.0-10.0) 10^3/ uL RBC 4.45 (4.1-5.3) 10^6/u L Hgb 14.0 (11.5-15.3) g/dL Hct 42.4 (37.0-47.0) % MCV 95.3 (81-99) fL MCH 31.5 (28.0-34.0) pg MCHC 33.0 (30.0-36.0) g/dL RDW 13.7 (12.1-15.1) % Plt Count 299 (130-400) 10^3/c mm MPV 8.7 (7.4-10.4) fL Neut % (Auto) 75.5 % Lymph % (Auto) 9.2 % Stone % (Auto) 10.3 % Eos % (Auto) 2.6 % Baso % (Auto) 0.7 % Neut # (Auto) 6.07 (1.8-7.7) 10^3/u L Lymph # (Auto) 0.7 L (0.8-4.8) 10^3/u L Stone # (Auto) 0.8 (0.2-0.9) 10^3/u L Eos # (Auto) 0.2 (0.0-0.8) 10^3/u L Baso # (Auto) 0.1 (0.0-0.1) 10^3/u L Nucleated RBC % (a uto) 0 % Nucleated RBCs # 0.0 /100WBC HCG, Qual Cancelled Urine Color Yellow (Yellow) Urine Appearance Clear (CLEAR) Urine pH 5 (5-7) Ur Specific Gravit y 1.020 (1.005-1.030) Urine Protein Neg (Negative) Urine Glucose (UA) Norm (Normal) Urine Ketones Negative (Negative) Urine Blood 3+ H (Negative) Urine Nitrate Negative (Negative) Urine Bilirubin Neg (Negative) Urine Urobilinogen Norm (Negative) mg/dL Ur Leukocyte Sylvia ase Negative (Negative) Urine RBC >100 H (0-2) /hpf Urine WBC None (0-5) /hpf Ur Squamous Epith Cells 5-10 H (0-5) /hpf Amorphous Sediment Not Reportable Urine Bacteria 2+ H (NONE) /hpf 10/22/20 Range/Units 10:50 WBC (4.0-10.0) 10^3/ uL RBC (4.1-5.3) 10^6/u L Hgb (11.5-15.3) g/dL Hct (37.0-47.0) % MCV (81-99) fL MCH (28.0-34.0) pg MCHC (30.0-36.0) g/dL RDW (12.1-15.1) % Plt Count (130-400) 10^3/c mm MPV (7.4-10.4) fL Neut % (Auto) % Lymph % (Auto) % Stone % (Auto) % Eos % (Auto) % Baso % (Auto) % Neut # (Auto) (1.8-7.7) 10^3/u L Lymph # (Auto) (0.8-4.8) 10^3/u L Stone # (Auto) (0.2-0.9) 10^3/u L Eos # (Auto) (0.0-0.8) 10^3/u L Baso # (Auto) (0.0-0.1) 10^3/u L Nucleated RBC % (a uto) % Nucleated RBCs # /100WBC HCG, Qual Negative Urine Color (Yellow) Urine Appearance (CLEAR) Urine pH (5-7) Ur Specific Gravit y (1.005-1.030) Urine Protein (Negative) Urine Glucose (UA) (Normal) Urine Ketones (Negative) Urine Blood (Negative) Urine Nitrate (Negative) Urine Bilirubin (Negative) Urine Urobilinogen (Negative) mg/dL Ur Leukocyte Sylvia ase (Negative) Urine RBC (0-2) /hpf Urine WBC (0-5) /hpf Ur Squamous Epith Cells (0-5) /hpf Amorphous Sediment Urine Bacteria (NONE) /hpf Discharge Plan Discharge Patient Disposition: Home Clinical Impression: Vaginal trauma Qualifiers: Encounter type: initial encounter Qualified Code(s): S39.93XA - Unspecified injury of pelvis, initial encounter Condition: Stable Prescriptions: No Action Xeloda 500 mg Tablet 1,500 mg PO BID RF: 0 capecitabine 150 mg Tablet 300 mg PO BID RF: 0 acetaminophen [Tylenol] 325 mg Tablet 325 mg PO QID PRN (Reason: PAIN/HEADACHE) RF: 0 Discharge Orders: Discharge ED (Routine); Ordered 10/22/20 Ordered By: Rajat Davis Referrals: Rob Benito MD [Primary Care Provider] - Discharge Diet: Usual diet Discharge Activity: Resume usual activity Activity Restrictions/Additional Instructions: Follow-up your primary care provider or return here if bleeding does not stop or it worsens in the next couple days. Be careful with use of any devices. Do not take any aspirin or nonsteroidal type medication for next couple days. Coding Level of Care Code ED Personnel Quality Assurance Auditor for Chg Fwd Exam Expanded Problem Focused
[2020-10-22 10:23] VITALS: BP 109/73; PULSE 93; RESP 18; O2SAT 96
--- NOTE | 2020-10-22 10:27 | US_ITS ---
WS: [id number] TRANSVAGINAL PELVIC ULTRASOUND HISTORY: Vaginal bleeding., hx of colon and abdominal wall CA, COMPARISON: None available. Uterus: 6.4 cm x 4.3 cm x 3.7 cm. Normal size anteverted uterus. No fibroid or mass. Endometrium: 1.0 cm. Normal size endometrium. No blood products along the endometrium. There is a sma ll amount of increased fluid in the cervical canal. Right ovary: 4.2 cm x 2.8 cm x 1.7 cm. Normal size ovary with small follicles. Normal vascularity. Left ovary: 3.4 cm x 1.6 cm x 3.7 cm. Normal size ovary with small follicles. No free fluid. US/US transvaginal [id number] IMPRESSION: 1. Very small amount of fluid along the cervical canal. Otherwise ultrasound i s normal. 2. No free fluid.
[2020-10-22 10:43] LABS: Basophils # 0.1 10^3/uL (0.0-0.1); Basophils % 0.7 %; Eosinophils # 0.2 10^3/uL (0.0-0.8); Eosinophils % 2.6 %; Hematocrit 42.4 % (37.0-47.0); Lymphocytes # 0.7 10^3/uL (0.8-4.8); Lymphocytes % 9.2 %; Mean Corpuscular Hemoglobin 31.5 pg (28.0-34.0); Mean Corpuscular Volume 95.3 fL (81-99); Mean Platelet Volume 8.7 fL (7.4-10.4); Monocytes # 0.8 10^3/uL (0.2-0.9); Monocytes % 10.3 %; Neutrophils # 6.07 10^3/uL (1.8-7.7); Neutrophils % 75.5 %; Nucleated Red Blood Cells % 0 %; Platelet Count 299 10^3/cmm (130-400); Red Blood Count 4.45 10^6/uL (4.1-5.3); Red Cell Distribution Width 13.7 % (12.1-15.1); White Blood Count 8.1 10^3/uL (4.0-10.0)
[2020-10-22 10:52] VITALS: BP 121/91; PULSE 104; RESP 18; O2SAT 98
[2020-10-22 10:56] LABS: Add Urine Microscopic? YES; Bilirubin Urine Neg (Negative); Blood Urine 3+ (Negative); Glucose Urine UA Norm (Normal); Ketones Urine Negative (Negative); Leukocyte Esterase Urine Negative (Negative); Nitrate Urine Negative (Negative); Protein Urine Neg (Negative); Urine Appearance Clear (CLEAR); Urine Color Yellow (Yellow); Urobilinogen Urine Norm (Negative); pH Urine 5 (5-7)
[2020-10-22 10:57] LABS: HCG Qualitative Urine. Negative (Negative)
[2020-10-22 11:01] LABS: Add Urine Culture? Yes; Bacteria Urine 2+ /hpf; RBC Urine >100 /hpf (0-2)
[2020-10-22 11:29] VITALS: BP 119/72; PULSE 104; RESP 18; TEMP 36.6
== END 2020-10-22 11:36 | disposition home or self-care (01) ==
PROVIDERS: Family Medicine; Emergency Provider Nurse Practitioner Family; PCP Family Medicine
DX: S39.94XA Unspecified injury of external genitals, initial encounter (principal); X58.XXXA Exposure to other specified factors, initial encounter
CPT/HCPCS: 76830; 81001; 81025; 85025; 87086; 99283

== ENCOUNTER 2020-10-27 06:10 | Outpatient (CLI) | payer MEDICAID, SELFPAY ==
[2020-10-27 14:58] LABS: Basophils # 0.1 10^3/uL (0.0-0.1); Basophils % 0.9 %; Eosinophils # 0.2 10^3/uL (0.0-0.8); Eosinophils % 2.8 %; Hematocrit 41.1 % (37.0-47.0); Hemoglobin 13.8 g/dL (11.5-15.3); Lymphocytes % 12.1 %; Mean Corpuscular HGB Conc 33.6 g/dL (30.0-36.0); Mean Corpuscular Hemoglobin 32.5 pg (28.0-34.0); Mean Corpuscular Volume 96.9 fL (81-99); Mean Platelet Volume 8.6 fL (7.4-10.4); Monocytes # 0.9 10^3/uL (0.2-0.9); Monocytes % 10.8 %; Neutrophils # 5.72 10^3/uL (1.8-7.7); Neutrophils % 72.6 %; Nucleated Red Blood Cells % 0 %; Platelet Count 310 10^3/cmm (130-400); Red Blood Count 4.24 10^6/uL (4.1-5.3); Red Cell Distribution Width 14.6 % (12.1-15.1); White Blood Count 7.9 10^3/uL (4.0-10.0)
[2020-10-27 15:29] LABS: Alanine Aminotransferase 41 U/L (0-33); Albumin Level 4.5 g/dL (3.5-5.2); Alkaline Phosphatase 65 IU/L (35-105); Anion Gap 13.1 (5-19); Aspartate Amino Transferase 23 U/L (0-32); Blood Urea Nitrogen 11 mg/dL (6-20); Calcium 8.9 mg/dL (8.5-10.5); Carbon Dioxide 27 mmol/L (22-29); Chloride 99 mmol/L (98-107); Globulin 3.1 g/dL (1.3-4.6); Glomerular Filtration Rate 104.6 mL/min (90-130); Glucose 88 mg/dL (65-115); Osmolality Calculated 279 mOsm/kg (285-295); Potassium 4.1 mmol/L (3.5-5.1); Sodium 135 mmol/L (136-145); Total Bilirubin 0.3 mg/dL (0.15-1.2); Total Protein 7.6 g/dL (6.6-8.7)
[2020-10-27 15:31] LABS: HCG, Serum Qual Negative (Negative)
== END 2020-10-27 06:11 | disposition home or self-care (01) ==
LOC: ONCMED 06:12
PROVIDERS: Nurse Practitioner; PCP Family Medicine; Visit Provider Internal Medicine Hematology & Oncology
DX: C18.4 Malignant neoplasm of transverse colon (principal); D50.0 Iron deficiency anemia secondary to blood loss (chronic); K90.9 Intestinal malabsorption, unspecified; Z79.899 Other long term (current) drug therapy
CPT/HCPCS: 36591; 80053; 84703; 85025

== ENCOUNTER 2020-11-03 05:43 | Outpatient (CLI) | payer MEDICAID, SELFPAY ==
[2020-11-03 09:38] LABS: Basophils # 0.1 10^3/uL (0.0-0.1); Basophils % 0.9 %; Eosinophils # 0.2 10^3/uL (0.0-0.8); Eosinophils % 3.1 %; Hematocrit 42.2 % (37.0-47.0); Hemoglobin 13.6 g/dL (11.5-15.3); Lymphocytes # 0.8 10^3/uL (0.8-4.8); Lymphocytes % 13.6 %; Mean Corpuscular HGB Conc 32.2 g/dL (30.0-36.0); Mean Corpuscular Hemoglobin 32.3 pg (28.0-34.0); Mean Corpuscular Volume 100.2 fL (81-99); Mean Platelet Volume 8.6 fL (7.4-10.4); Monocytes # 0.5 10^3/uL (0.2-0.9); Monocytes % 9.3 %; Neutrophils % 71.9 %; Nucleated Red Blood Cells % 0 %; Platelet Count 277 10^3/cmm (130-400); Red Blood Count 4.21 10^6/uL (4.1-5.3); Red Cell Distribution Width 15.2 % (12.1-15.1); White Blood Count 5.8 10^3/uL (4.0-10.0)
[2020-11-03 09:57] LABS: HCG, Serum Qual Negative (Negative)
[2020-11-03 10:12] LABS: Carcinoembryonic Antigen 1.6 ng/mL (0.0-4.7)
[2020-11-03 10:23] LABS: Alanine Aminotransferase 44 U/L (0-33); Albumin Level 4.2 g/dL (3.5-5.2); Alkaline Phosphatase 58 IU/L (35-105); Anion Gap 16.8 (5-19); Aspartate Amino Transferase 32 U/L (0-32); Blood Urea Nitrogen 9 mg/dL (6-20); Calcium 8.7 mg/dL (8.5-10.5); Carbon Dioxide 22 mmol/L (22-29); Chloride 100 mmol/L (98-107); Globulin 3.1 g/dL (1.3-4.6); Glomerular Filtration Rate 154.3 mL/min (90-130); Glucose 192 mg/dL (65-115); Osmolality Calculated 284 mOsm/kg (285-295); Potassium 3.8 mmol/L (3.5-5.1); Sodium 135 mmol/L (136-145); Total Bilirubin 0.4 mg/dL (0.15-1.2); Total Protein 7.3 g/dL (6.6-8.7)
[2020-11-03] MEDS: palonosetron 0.25 mg/5 mL SDV IV (11:57)
[2020-11-03] MEDS: dextrose 5% 250 ML IV (12:25)
--- NOTE | 2020-11-03 17:10 | ONC FU_ITS ---
Dr. Ward follow up note Patient: Alivia Tony Unit #: [id number]: [id number] Dicatated By: Jaydon Ward M.D.Date of Visit:Nov 03, 2020 Onc Med Follow-up/Prog Note History of Present Illness: Ms. Tony is a 20-year-old female with history of progressive weakness and fatigue, shortness of breath and palpitation on exertion. She went to [facility] on November 29, 2019 and found to have hemoglobin around 6 g and she was given unit of packed RBC with that her hemoglobin improved to 7.5 g. As per patient before this admission she was not aware of anemia in fact last year in December 2018 she went to [facility] with bleeding per rectum at that time her hemoglobin was normal and she was treated conservatively. And since then she has been having dark-colored stools and off and on rectal bleed and also having irregular and off and on heavy menses and recently also start taking nonsteroidal for costochondritis. Chest x-ray showed no abnormality except slight left hemidiaphragm elevation for which she underwent CT scan of abdomen and pelvis on November 29, 2019 which showed peripheral enhancing right ovarian hemorrhagic or corpus luteum cyst measuring 1.6 x 1.9 cm with surrounding fluid. No other abnormality seen-except mild diffuse fatty infiltration of the liver In review of her history, Ms Tony denies any peripheral numbness, denies any jaundice, denies any weight loss, denies any abdominal pain, denies any history of gastric surgery, denies any hematuria, denies any night sweats, denies any weight loss. Because of history of dark-colored stools and bleeding per rectum, GI was consulted, Dr. Desai Performed colonoscopy on December 25, 2019 which showed in the mid transverse colon, completely obstructing large size, fungating, friable, malignant appearing circumferential, villous 3 cm x 6 cm mass and mass was not bleeding but biopsy was obtained which confirmed moderately differentiated invasive adenocarcinoma Underwent left hemicolectomy on January 06, 2020, final pathology report showed poorly differentiated adenocarcinoma of colon with extension into pericolonic fat. Cauterized tumor at inked peripheral resection margin with no definite serosa on dissection. pT4a (tumor invades visceral peritoneum) No vascular or perineural invasion seen. 26 benign lymph nodes with reactive changes. pN0 , Stage IIb. On May 30, 2020 patient went to [facility] with left flank pain CT scan of abdomen showed mass in the left upper quadrant 8 x 4.6 cm invading adjacent peritoneum and abdominal wall. Abuts wall of left descending colon with loss of fat plane, displacing the colon medially without obstruction and CT scan of chest showed 4 mm groundglass opacity in right upper lobe, CEA was 47.2 patient was referred to [facility] for evaluation and there she was treated with combined chemoradiation started on June 25, 2020, her CEA was 82.5 and she completed her combined chemo radiation therapy with oral Xeloda on August 10, 2020. And her CEA decreased to 27.2. Patient was evaluated by Dr. Russ who recommended FOLFOX or Capox for 4 months followed by evaluation at [place]. Ms Tony was encouraged to pursue chmotherapy for 4 months post surgery and began her first cycle of CAPOX on 09/22/2020. 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 She reported several neuropathy in her lips and felt like she was having trouble swallowing. Her second dose of oxaliplatin given on October 13, 2020 was reduced by 20%, as per patient she still had choking sensation but no visual disturbance like happened with previous dose and this choking sensation lasted for 1 week compared to week and a half before. Her oxaliplatin dose was further reduced by 10% on November 03, 2020 to minimize laryngospasm/neuropathy due to oxaliplatin Came for follow-up, denies any specific complaints, no fever chills, no nausea or vomiting, no diarrhea constipation, no choking sensation, no peripheral numbness, tolerated second but reduce dose of oxaliplatin well but still had laryngospasm/choking sensation which lasted for 1 week compared to 1-1/2-week previously and this time no visual abnormality either. Tolerating oral Xeloda well, no mouth sores, no diarrhea, no hand-foot skin changes, no skin rash, no jaundice. Medications: There is no information available for Current Medications - Patient. Allergies: No Known Allergies. Review of Systems: Review of Systems is not available for this patient. Vital Signs: Performed on Nov 03, 2020 10:39 Height - 69.00 in Weight - 249.2 lbs (LOW) BSA - 2.27 sq.m BMI - 36.80 (HIGH) Temperature - 98.6 F Pulse - 114 /min (HIGH) Respiration - 18 /min BP - 123/82 mm(hg) O2 Sat - 97 % Pain - 0 Fatigue - 0 Performance Status: 0 - Fully active, able to carry on all predisease activities without restrictions. (ECOG) Physical Examination: ENMT - No mouth sores, no thrush, no jaundice, Respiratory - Lungs are clear to auscultation, Cardiovascular - Regular rate and rhythm of heart, Abdomen - Soft, bowel sounds present, Extremities - No visible edema or rash. Lab/Imaging: Test performed on Oct 13, 2020 08:45 Sodium 139 mmol/L Potassium 4.0 mmol/L Chloride 103 mmol/L CO2 26 mmol/L Anion Gap 14.0 BUN 8 mg/dL Creatinine 0.5 mg/dL Cr Clearance (Est) 319.2300 mL/min eGFR 154.3 mL/min Glucose 122 mg/dL Osmolality - Calculated 288 mOsm/kg Calcium 9.4 mg/dL Protein, Total 7.6 g/dL Albumin 4.3 g/dL Globulin 3.3 g/dL Bilirubin, Total 0.5 mg/dL ALT (SGPT) 41 U/L AST (SGOT) 24 U/L Alkaline Phosphatase 59 IU/L WBC 6.6 10 3/uL RBC 4.36 10 6/uL HGB 13.8 g/dL HCT 42.4 % MCV 97.2 fL MCH 31.7 pg MCHC 32.5 g/dL RDW 14.6 % Platelet Count 302 10 3/cmm MPV 8.6 fL Neutrophils 4.62 10 3/uL Lymphocytes 0.7 10 3/uL Monocytes 0.7 10 3/uL Eosinophils 0.4 10 3/uL Basophils 0.1 10 3/uL Neutrophil % 70.6 % Lymphocyte % 10.7 % Monocyte % 10.8 % Eosinophil % 5.6 % Basophils % 0.9 % NRBC % 0 % Impression: Moderately differentiated invasive adenocarcinoma involving mid transverse colon polyp colonoscopy done on December 25, 2019, Status post left hemicolectomy done on January 06, 2020, final pathology report showed poorly differentiated adenocarcinoma, tumor invades through muscularis propria into pericolonic fat with circumferential or radial margins involved but proximal and distal margins were clear. pT4a No lymphovascular/perineural invasion seen. 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 Follow-up CT scan of chest abdomen pelvis done on April 28, 2020 at [place] showed loss of plane between tumor in the descending colon and left abdominal wall and on May 30, 2020 patient went to ER with left flank pain CT scan of abdomen pelvis done showed 8 x 4.6 cm mass in left upper quadrant invading adjacent peritoneum and abdominal wall. Abuts wall of left descending colon with loss of fat plane. Displacing colon medially without obstruction. And 4 mm groundglass opacity in the right upper lobe of lung, CEA was 47.2, patient was started on combined chemoradiation with oral Xeloda to the left upper quadrant abdominal mass on June 25, 2020 and completed on August 10, 2020. CT ssan of abdomen shows mild diffuse fatty infiltration of the liver otherwise no other abnormality seen except peripheral enhancing right ovarian hemorrhagic or corpus luteum cyst measuring 1.9 x 1.6 cm iron deficiency anemia probably multifactorial including chronic blood loss due to heavy menses or off and on GI bleeding From newly diagnosed colon cancer other possibility could be malabsorption. Generalized weakness fatigue, dyspnea on exertion due to severe iron deficiency anemia diagnosed on November 29, 2019 with a hemoglobin around 6 g status post 1 unit of packed RBC. She did take oral iron twice a day but was given 2 doses on Injectafer on 01/17/2020 and 01/24/2020. Right ovarian hemorrhagic cyst,Seen by MATERIAL SPECIALIST, Dr. Rivera and no work-up rather observation recommended Plan: Discussed with patient regarding her labs from October 27, 2020 white blood count 7.9 hemoglobin 13.8 hematocrit 41.1 platelets 310 CMP within normal limits Clinically, patient doing well, tolerating systemic chemotherapy with oral Xeloda/3 weekly oxaliplatin, well but with expected side effects, main concern is recurrent choking sensation/laryngospasm which could be due to oxaliplatin other possibility could be pseudolaryngal spasm. But as per patient her symptoms she did improve with oxaliplatin dose reduction. Patient is due for next cycle of oxaliplatin today so we will consider further dose reduction by 10% to minimize toxicity and also consider magnesium infusion prior to the oxaliplatin infusion and to control pseudolaryngospasm, will consider Ativan prior to oxaliplatin and then on as-needed basis at home. She will return to clinic in 2 weeks with CBC CMP. Patient was advised in case symptoms recur she need to call us immediately or go to hospital for evaluation Signed By: Jaydon Ward M.D. <<Signature on File>>
== END 2020-11-03 05:44 | disposition home or self-care (01) ==
PROVIDERS: PCP Family Medicine; Visit Provider Internal Medicine Hematology & Oncology
DX: Z51.11 Encounter for antineoplastic chemotherapy (principal); C18.4 Malignant neoplasm of transverse colon; D50.9 Iron deficiency anemia, unspecified; K76.0 Fatty (change of) liver, not elsewhere classified; K90.9 Intestinal malabsorption, unspecified; Z79.899 Other long term (current) drug therapy
CPT/HCPCS: 80053; 82378; 84703; 85025; 96367; 96375; 96413; 96415; 99215; J1100; J2469; J3475; J7050; J9263

== ENCOUNTER 2020-11-16 15:24 | Outpatient (CLI) | payer MEDICAID, SELFPAY ==
[2020-11-16 16:14] LABS: Basophils # 0.1 10^3/uL (0.0-0.1); Basophils % 0.9 %; Eosinophils # 0.2 10^3/uL (0.0-0.8); Eosinophils % 3.1 %; Hematocrit 42.6 % (37.0-47.0); Lymphocytes % 12.7 %; Mean Corpuscular HGB Conc 32.9 g/dL (30.0-36.0); Mean Corpuscular Hemoglobin 32.9 pg (28.0-34.0); Mean Corpuscular Volume 100.2 fL (81-99); Mean Platelet Volume 8.9 fL (7.4-10.4); Monocytes # 0.9 10^3/uL (0.2-0.9); Monocytes % 10.9 %; Neutrophils # 5.62 10^3/uL (1.8-7.7); Neutrophils % 71.5 %; Nucleated Red Blood Cells % 0 %; Platelet Count 319 10^3/cmm (130-400); Red Blood Count 4.25 10^6/uL (4.1-5.3); White Blood Count 7.9 10^3/uL (4.0-10.0)
[2020-11-16 16:33] LABS: Alanine Aminotransferase 60 U/L (0-33); Albumin Level 4.2 g/dL (3.5-5.2); Alkaline Phosphatase 71 IU/L (35-105); Aspartate Amino Transferase 44 U/L (0-32); Blood Urea Nitrogen 9 mg/dL (6-20); Carbon Dioxide 27 mmol/L (22-29); Chloride 102 mmol/L (98-107); Globulin 3.1 g/dL (1.3-4.6); Glomerular Filtration Rate 104.6 mL/min (90-130); Glucose 143 mg/dL (65-115); Osmolality Calculated 289 mOsm/kg (285-295); Sodium 139 mmol/L (136-145); Total Bilirubin 0.3 mg/dL (0.15-1.2); Total Protein 7.3 g/dL (6.6-8.7)
== END 2020-11-16 15:25 | disposition home or self-care (01) ==
LOC: ONCMED 15:26
PROVIDERS: Nurse Practitioner; PCP Family Medicine; Visit Provider Internal Medicine Hematology & Oncology
DX: C18.4 Malignant neoplasm of transverse colon (principal); D50.0 Iron deficiency anemia secondary to blood loss (chronic); Z79.899 Other long term (current) drug therapy
CPT/HCPCS: 36591; 80053; 85025

== ENCOUNTER 2020-11-17 05:57 | Outpatient (CLI) | payer MEDICAID, SELFPAY ==
--- NOTE | 2020-11-17 17:52 | ONC FU_ITS ---
Dr. Ward follow up note Patient: Alivia Tony Unit #: [id number]: 2000 Dicatated By: Jaydon Ward M.D.Date of Visit:November 17, 2020 Onc Med Follow-up/Prog Note History of Present Illness: Ms. Tony is a 20-year-old female with history of progressive weakness and fatigue, shortness of breath and palpitation on exertion. She went to [facility] on November 29, 2019 and found to have hemoglobin around 6 g and she was given unit of packed RBC with that her hemoglobin improved to 7.5 g. As per patient before this admission she was not aware of anemia in fact last year in December 2018 she went to [facility] with bleeding per rectum at that time her hemoglobin was normal and she was treated conservatively. And since then she has been having dark-colored stools and off and on rectal bleed and also having irregular and off and on heavy menses and recently also start taking nonsteroidal for costochondritis. Chest x-ray showed no abnormality except slight left hemidiaphragm elevation for which she underwent CT scan of abdomen and pelvis on November 29, 2019 which showed peripheral enhancing right ovarian hemorrhagic or corpus luteum cyst measuring 1.6 x 1.9 cm with surrounding fluid. No other abnormality seen-except mild diffuse fatty infiltration of the liver In review of her history, Ms Tony denies any peripheral numbness, denies any jaundice, denies any weight loss, denies any abdominal pain, denies any history of gastric surgery, denies any hematuria, denies any night sweats, denies any weight loss. Because of history of dark-colored stools and bleeding per rectum, GI was consulted, Dr. Desai Performed colonoscopy on December 25, 2019 which showed in the mid transverse colon, completely obstructing large size, fungating, friable, malignant appearing circumferential, villous 3 cm x 6 cm mass and mass was not bleeding but biopsy was obtained which confirmed moderately differentiated invasive adenocarcinoma Underwent left hemicolectomy on January 06, 2020, final pathology report showed poorly differentiated adenocarcinoma of colon with extension into pericolonic fat. Cauterized tumor at inked peripheral resection margin with no definite serosa on dissection. pT4a (tumor invades visceral peritoneum) No vascular or perineural invasion seen. 26 benign lymph nodes with reactive changes. pN0 , Stage IIb. On May 30, 2020 patient went to [facility] with left flank pain CT scan of abdomen showed mass in the left upper quadrant 8 x 4.6 cm invading adjacent peritoneum and abdominal wall. Abuts wall of left descending colon with loss of fat plane, displacing the colon medially without obstruction and CT scan of chest showed 4 mm groundglass opacity in right upper lobe, CEA was 47.2 patient was referred to [facility] for evaluation and there she was treated with combined chemoradiation started on June 25, 2020, her CEA was 82.5 and she completed her combined chemo radiation therapy with oral Xeloda on August 10, 2020. And her CEA decreased to 27.2. Patient was evaluated by Dr. Russ who recommended FOLFOX or Capox for 4 months followed by evaluation at [facility]. Ms Tony was encouraged to pursue chmotherapy for 4 months post surgery and began her first cycle of CAPOX on 09/22/2020. 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 She reported several neuropathy in her lips and felt like she was having trouble swallowing. Her second dose of oxaliplatin given on October 13, 2020 was reduced by 20%, as per patient she still had choking sensation but no visual disturbance like happened with previous dose and this choking sensation lasted for 1 week compared to week and a half before. Her oxaliplatin dose was further reduced by 10% on November 03, 2020 to minimize laryngospasm/neuropathy due to oxaliplatin And was also given mag sulfate and Ativan, with that as per patient she did not have choking sensation with her psychosocial Capeox but next day she developed mild choking sensation but no dysphagia no tongue or lips numbness and it lasted for 4- 5 days and resolved on its own Underwent CT scan of chest abdomen pelvis on October 21, 2020 which showed complete remission of left upper quadrant mass invading L 10th rib, minimal residual soft tissue thickening at the site. 2 discrete rounded lesions with central fat attenuation, likely fat necrosis. No distant metastatic disease Came for follow-up, denies any specific complaints, no fever chills, no nausea or vomiting, no diarrhea constipation as per patient after last chemotherapy with oxaliplatin dose, she did not have choking sensation during infusion or immediate after but following day felt mild choking sensation which lasted for 4 or 5 days and then resolved on its own other than that no mouth sores, no fever or chills, no diarrhea or constipation, no jaundice, patient says she has follow-up appointment at [facility] on December 16, 2020, tolerating oral Xeloda well otherwise Medications: There is no information available for Current Medications - Patient. Allergies: No Known Allergies. Review of Systems: Review of Systems is not available for this patient. Vital Signs: Performed on November 17, 2020 08:15 Height - 69.00 in Weight - 248.8 lbs (LOW) BSA - 2.27 sq.m BMI - 36.74 (HIGH) Temperature - 97.0 F (LOW) Pulse - 90 /min Respiration - 18 /min BP - 126/65 mm(hg) O2 Sat - 98 % Pain - 0 Performance Status: 0 - Fully active, able to carry on all predisease activities without restrictions. (ECOG) Physical Examination: ENMT - No mouth sores, no thrush, no jaundice, Respiratory - Lungs are clear to auscultation, Cardiovascular - Regular rate and rhythm of heart, Abdomen - Soft, bowel sounds present, Extremities - No visible edema or rash. Lab/Imaging: Test performed on Oct 13, 2020 08:45 Sodium 139 mmol/L Potassium 4.0 mmol/L Chloride 103 mmol/L CO2 26 mmol/L Anion Gap 14.0 BUN 8 mg/dL Creatinine 0.5 mg/dL Cr Clearance (Est) 319.2300 mL/min eGFR 154.3 mL/min Glucose 122 mg/dL Osmolality - Calculated 288 mOsm/kg Calcium 9.4 mg/dL Protein, Total 7.6 g/dL Albumin 4.3 g/dL Globulin 3.3 g/dL Bilirubin, Total 0.5 mg/dL ALT (SGPT) 41 U/L AST (SGOT) 24 U/L Alkaline Phosphatase 59 IU/L WBC 6.6 10 3/uL RBC 4.36 10 6/uL HGB 13.8 g/dL HCT 42.4 % MCV 97.2 fL MCH 31.7 pg MCHC 32.5 g/dL RDW 14.6 % Platelet Count 302 10 3/cmm MPV 8.6 fL Neutrophils 4.62 10 3/uL Lymphocytes 0.7 10 3/uL Monocytes 0.7 10 3/uL Eosinophils 0.4 10 3/uL Basophils 0.1 10 3/uL Neutrophil % 70.6 % Lymphocyte % 10.7 % Monocyte % 10.8 % Eosinophil % 5.6 % Basophils % 0.9 % NRBC % 0 % Impression: Moderately differentiated invasive adenocarcinoma involving mid transverse colon polyp colonoscopy done on December 25, 2019, Status post left hemicolectomy done on January 06, 2020, final pathology report showed poorly differentiated adenocarcinoma, tumor invades through muscularis propria into pericolonic fat with circumferential or radial margins involved but proximal and distal margins were clear. pT4a No lymphovascular/perineural invasion seen. 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 Follow-up CT scan of chest abdomen pelvis done on April 28, 2020 at [facility] showed loss of plane between tumor in the descending colon and left abdominal wall and on May 30, 2020 patient went to ER with left flank pain CT scan of abdomen pelvis done showed 8 x 4.6 cm mass in left upper quadrant invading adjacent peritoneum and abdominal wall. Abuts wall of left descending colon with loss of fat plane. Displacing colon medially without obstruction. And 4 mm groundglass opacity in the right upper lobe of lung, CEA was 47.2, patient was started on combined chemoradiation with oral Xeloda to the left upper quadrant abdominal mass on June 25, 2020 and completed on August 10, 2020. CT ssan of abdomen shows mild diffuse fatty infiltration of the liver otherwise no other abnormality seen except peripheral enhancing right ovarian hemorrhagic or corpus luteum cyst measuring 1.9 x 1.6 cm iron deficiency anemia probably multifactorial including chronic blood loss due to heavy menses or off and on GI bleeding From newly diagnosed colon cancer other possibility could be malabsorption. Generalized weakness fatigue, dyspnea on exertion due to severe iron deficiency anemia diagnosed on November 29, 2019 with a hemoglobin around 6 g status post 1 unit of packed RBC. She did take oral iron twice a day but was given 2 doses on Injectafer on 01/17/2020 and 01/24/2020. Right ovarian hemorrhagic cyst,Seen by DIRECT RESPONSE CONSULTANT, Dr. 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 Patient return to clinic in 1 week with CBC and CMP and if within normal range, will consider next dose of oxaliplatin, patient has completed 14 days course of oral Xeloda well otherwise Signed By: Jaydon Ward M.D. <<Signature on File>>
== END 2020-11-17 05:58 | disposition home or self-care (01) ==
PROVIDERS: PCP Family Medicine; Visit Provider Internal Medicine Hematology & Oncology
DX: C18.4 Malignant neoplasm of transverse colon (principal); D50.9 Iron deficiency anemia, unspecified; R53.1 Weakness; R53.83 Other fatigue; R06.00 Dyspnea, unspecified; N83.201 Unspecified ovarian cyst, right side; Z79.899 Other long term (current) drug therapy
CPT/HCPCS: 99214

== ENCOUNTER 2020-11-24 05:34 | Outpatient (RCR) | payer MEDICAID, SELFPAY ==
[2020-11-23 14:09] LABS: Basophils # 0.1 10^3/uL (0.0-0.1); Basophils % 1.2 %; Eosinophils # 0.1 10^3/uL (0.0-0.8); Eosinophils % 2.5 %; Hematocrit 41.5 % (37.0-47.0); Hemoglobin 13.6 g/dL (11.5-15.3); Lymphocytes # 0.8 10^3/uL (0.8-4.8); Lymphocytes % 13.5 %; Mean Corpuscular HGB Conc 32.8 g/dL (30.0-36.0); Mean Corpuscular Hemoglobin 33.2 pg (28.0-34.0); Mean Corpuscular Volume 101.2 fL (81-99); Mean Platelet Volume 8.8 fL (7.4-10.4); Monocytes # 0.8 10^3/uL (0.2-0.9); Monocytes % 13.7 %; Neutrophils # 3.88 10^3/uL (1.8-7.7); Neutrophils % 68.2 %; Nucleated Red Blood Cells % 0 %; Platelet Count 309 10^3/cmm (130-400); Red Cell Distribution Width 14.7 % (12.1-15.1); White Blood Count 5.7 10^3/uL (4.0-10.0)
[2020-11-23 14:22] LABS: Alanine Aminotransferase 38 U/L (0-33); Albumin Level 4.1 g/dL (3.5-5.2); Alkaline Phosphatase 55 IU/L (35-105); Anion Gap 13.9 (5-19); Aspartate Amino Transferase 25 U/L (0-32); Blood Urea Nitrogen 10 mg/dL (6-20); Calcium 8.6 mg/dL (8.5-10.5); Carbon Dioxide 26 mmol/L (22-29); Chloride 104 mmol/L (98-107); Globulin 3.3 g/dL (1.3-4.6); Glucose 109 mg/dL (65-115); Osmolality Calculated 290 mOsm/kg (285-295); Potassium 3.9 mmol/L (3.5-5.1); Sodium 140 mmol/L (136-145); Total Bilirubin 0.4 mg/dL (0.15-1.2); Total Protein 7.4 g/dL (6.6-8.7)
[2020-11-24] MEDS: dextrose 5% 250 ML IV (09:40)
[2020-11-24] MEDS: palonosetron 0.25 mg/5 mL SDV IV (10:30)
--- NOTE | 2020-11-24 16:23 | ONC FU_ITS ---
Dr. Ward follow up note Patient: Alivia Tony Unit #: [id number]: 2000 Dicatated By: Jaydon Ward M.D.Date of Visit:November 24, 2020 Onc Med Follow-up/Prog Note History of Present Illness: Ms. Tony is a 20-year-old female with history of progressive weakness and fatigue, shortness of breath and palpitation on exertion. She went to [facility] on November 29, 2019 and found to have hemoglobin around 6 g and she was given unit of packed RBC with that her hemoglobin improved to 7.5 g. As per patient before this admission she was not aware of anemia in fact last year in December 2018 she went to [facility] with bleeding per rectum at that time her hemoglobin was normal and she was treated conservatively. And since then she has been having dark-colored stools and off and on rectal bleed and also having irregular and off and on heavy menses and recently also start taking nonsteroidal for costochondritis. Chest x-ray showed no abnormality except slight left hemidiaphragm elevation for which she underwent CT scan of abdomen and pelvis on November 29, 2019 which showed peripheral enhancing right ovarian hemorrhagic or corpus luteum cyst measuring 1.6 x 1.9 cm with surrounding fluid. No other abnormality seen-except mild diffuse fatty infiltration of the liver In review of her history, Ms Tony denies any peripheral numbness, denies any jaundice, denies any weight loss, denies any abdominal pain, denies any history of gastric surgery, denies any hematuria, denies any night sweats, denies any weight loss. Because of history of dark-colored stools and bleeding per rectum, GI was consulted, Dr. Desai Performed colonoscopy on December 25, 2019 which showed in the mid transverse colon, completely obstructing large size, fungating, friable, malignant appearing circumferential, villous 3 cm x 6 cm mass and mass was not bleeding but biopsy was obtained which confirmed moderately differentiated invasive adenocarcinoma Underwent left hemicolectomy on January 06, 2020, final pathology report showed poorly differentiated adenocarcinoma of colon with extension into pericolonic fat. Cauterized tumor at inked peripheral resection margin with no definite serosa on dissection. pT4a (tumor invades visceral peritoneum) No vascular or perineural invasion seen. 26 benign lymph nodes with reactive changes. pN0 , Stage IIb. On May 30, 2020 patient went to [facility] with left flank pain CT scan of abdomen showed mass in the left upper quadrant 8 x 4.6 cm invading adjacent peritoneum and abdominal wall. Abuts wall of left descending colon with loss of fat plane, displacing the colon medially without obstruction and CT scan of chest showed 4 mm groundglass opacity in right upper lobe, CEA was 47.2 patient was referred to [facility] for evaluation and there she was treated with combined chemoradiation started on June 25, 2020, her CEA was 82.5 and she completed her combined chemo radiation therapy with oral Xeloda on August 10, 2020. And her CEA decreased to 27.2. Patient was evaluated by Dr. Russ who recommended FOLFOX or Capox for 4 months followed by evaluation at [facility]. Ms Tony was encouraged to pursue chmotherapy for 4 months post surgery and began her first cycle of CAPOX on 09/22/2020. 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 She reported several neuropathy in her lips and felt like she was having trouble swallowing. Her second dose of oxaliplatin given on October 13, 2020 was reduced by 20%, as per patient she still had choking sensation but no visual disturbance like happened with previous dose and this choking sensation lasted for 1 week compared to week and a half before. Her oxaliplatin dose was further reduced by 10% on November 03, 2020 to minimize laryngospasm/neuropathy due to oxaliplatin And was also given mag sulfate and Ativan, with that as per patient she did not have choking sensation with her psychosocial Capeox but next day she developed mild choking sensation but no dysphagia no tongue or lips numbness and it lasted for 4- 5 days and resolved on its own Underwent CT scan of chest abdomen pelvis on October 21, 2020 which showed complete remission of left upper quadrant mass invading L 10th rib, minimal residual soft tissue thickening at the site. 2 discrete rounded lesions with central fat attenuation, likely fat necrosis. No distant metastatic disease Came for follow-up, denies any specific complaints, no fever chills, no nausea or vomiting, no diarrhea or constipation, no mouth sores, no peripheral neuropathy, tolerating systemic therapy with oral Xeloda/oxaliplatin well Medications: There is no information available for Current Medications - Patient. Allergies: No Known Allergies. Review of Systems: Review of Systems is not available for this patient. Vital Signs: Performed on November 24, 2020 08:44 Height - 69.00 in Weight - 249.0 lbs (HIGH) BSA - 2.27 sq.m BMI - 36.77 (HIGH) Temperature - 97.0 F (LOW) Pulse - 98 /min Respiration - 17 /min BP - 127/76 mm(hg) O2 Sat - 98 % Pain - 3 Performance Status: 0 - Fully active, able to carry on all predisease activities without restrictions. (ECOG) Physical Examination: ENMT - No mouth sores, no thrush, no jaundice, Respiratory - Lungs are clear to auscultation, Cardiovascular - Regular rate and rhythm of heart, Abdomen - Soft, bowel sounds present, Extremities - No visible edema. Lab/Imaging: Test performed on Oct 13, 2020 08:45 Sodium 139 mmol/L Potassium 4.0 mmol/L Chloride 103 mmol/L CO2 26 mmol/L Anion Gap 14.0 BUN 8 mg/dL Creatinine 0.5 mg/dL Cr Clearance (Est) 319.2300 mL/min eGFR 154.3 mL/min Glucose 122 mg/dL Osmolality - Calculated 288 mOsm/kg Calcium 9.4 mg/dL Protein, Total 7.6 g/dL Albumin 4.3 g/dL Globulin 3.3 g/dL Bilirubin, Total 0.5 mg/dL ALT (SGPT) 41 U/L AST (SGOT) 24 U/L Alkaline Phosphatase 59 IU/L WBC 6.6 10 3/uL RBC 4.36 10 6/uL HGB 13.8 g/dL HCT 42.4 % MCV 97.2 fL MCH 31.7 pg MCHC 32.5 g/dL RDW 14.6 % Platelet Count 302 10 3/cmm MPV 8.6 fL Neutrophils 4.62 10 3/uL Lymphocytes 0.7 10 3/uL Monocytes 0.7 10 3/uL Eosinophils 0.4 10 3/uL Basophils 0.1 10 3/uL Neutrophil % 70.6 % Lymphocyte % 10.7 % Monocyte % 10.8 % Eosinophil % 5.6 % Basophils % 0.9 % NRBC % 0 % Impression: Moderately differentiated invasive adenocarcinoma involving mid transverse colon polyp colonoscopy done on December 25, 2019, Status post left hemicolectomy done on January 06, 2020, final pathology report showed poorly differentiated adenocarcinoma, tumor invades through muscularis propria into pericolonic fat with circumferential or radial margins involved but proximal and distal margins were clear. pT4a No lymphovascular/perineural invasion seen. 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 Follow-up CT scan of chest abdomen pelvis done on April 28, 2020 at [facility] showed loss of plane between tumor in the descending colon and left abdominal wall and on May 30, 2020 patient went to ER with left flank pain CT scan of abdomen pelvis done showed 8 x 4.6 cm mass in left upper quadrant invading adjacent peritoneum and abdominal wall. Abuts wall of left descending colon with loss of fat plane. Displacing colon medially without obstruction. And 4 mm groundglass opacity in the right upper lobe of lung, CEA was 47.2, patient was started on combined chemoradiation with oral Xeloda to the left upper quadrant abdominal mass on June 25, 2020 and completed on August 10, 2020. CT ssan of abdomen shows mild diffuse fatty infiltration of the liver otherwise no other abnormality seen except peripheral enhancing right ovarian hemorrhagic or corpus luteum cyst measuring 1.9 x 1.6 cm iron deficiency anemia probably multifactorial including chronic blood loss due to heavy menses or off and on GI bleeding From newly diagnosed colon cancer other possibility could be malabsorption. Generalized weakness fatigue, dyspnea on exertion due to severe iron deficiency anemia diagnosed on November 29, 2019 with a hemoglobin around 6 g status post 1 unit of packed RBC. She did take oral iron twice a day but was given 2 doses on Injectafer on 01/17/2020 and 01/24/2020. Right ovarian hemorrhagic cyst,Seen by SSAS DEVELOPER, Dr. Rivera and no work-up rather observation recommended Plan: Discussed with patient regarding her labs white blood count 5.7 hemoglobin 13.6 hematocrit 41.5 platelets 309,000 ANC 3880, CMP within normal limits Clinically, patient doing well with no new signs symptom suggestive of recurrence of disease or disease progression, tolerating systemic therapy with oral Xeloda/oxaliplatin well, will proceed with next 3 monthly dose of oxaliplatin today and then she will start taking oral Xeloda for 2 weeks return to clinic in 2 weeks with CBC CMP,, as per patient she is going back to [facility], for follow-up on December 16, 2020 Signed By: Jaydon Ward M.D. <<Signature on File>>
== END 2020-12-07 23:59 | disposition home or self-care (01) ==
LOC: ONCMED 05:34
PROVIDERS: PCP Family Medicine; Visit Provider Internal Medicine Hematology & Oncology
DX: Z51.11 Encounter for antineoplastic chemotherapy (principal); C18.4 Malignant neoplasm of transverse colon; D50.9 Iron deficiency anemia, unspecified; R53.1 Weakness; N83.201 Unspecified ovarian cyst, right side; Z79.899 Other long term (current) drug therapy
CPT/HCPCS: 36591; 80053; 85025; 96367; 96375; 96413; 96415; 99215; J1100; J2469; J3475; J9263

== ENCOUNTER 2020-12-15 05:34 | Outpatient (RCR) | payer MEDICAID, SELFPAY ==
[2020-12-14 14:36] LABS: Basophils # 0.1 10^3/uL (0.0-0.1); Basophils % 1.1 %; Eosinophils # 0.2 10^3/uL (0.0-0.8); Eosinophils % 2.3 %; Hematocrit 41.2 % (37.0-47.0); Hemoglobin 13.8 g/dL (11.5-15.3); Lymphocytes # 0.9 10^3/uL (0.8-4.8); Lymphocytes % 12.7 %; Mean Corpuscular HGB Conc 33.5 g/dL (30.0-36.0); Mean Corpuscular Hemoglobin 33.3 pg (28.0-34.0); Mean Corpuscular Volume 99.5 fL (81-99); Mean Platelet Volume 8.7 fL (7.4-10.4); Monocytes # 1.2 10^3/uL (0.2-0.9); Neutrophils # 4.92 10^3/uL (1.8-7.7); Neutrophils % 67.1 %; Nucleated Red Blood Cells % 0 %; Platelet Count 355 10^3/cmm (130-400); Red Blood Count 4.14 10^6/uL (4.1-5.3); White Blood Count 7.3 10^3/uL (4.0-10.0)
[2020-12-14 14:51] LABS: Alanine Aminotransferase 37 U/L (0-33); Albumin Level 4.2 g/dL (3.5-5.2); Alkaline Phosphatase 67 IU/L (35-105); Anion Gap 15.3 (5-19); Aspartate Amino Transferase 26 U/L (0-32); Blood Urea Nitrogen 10 mg/dL (6-20); Calcium 9.3 mg/dL (8.5-10.5); Carbon Dioxide 28 mmol/L (22-29); Chloride 99 mmol/L (98-107); Globulin 3.5 g/dL (1.3-4.6); Glomerular Filtration Rate 154.3 mL/min (90-130); Glucose 108 mg/dL (65-115); Osmolality Calculated 286 mOsm/kg (285-295); Potassium 4.3 mmol/L (3.5-5.1); Sodium 138 mmol/L (136-145); Total Bilirubin 0.3 mg/dL (0.15-1.2); Total Protein 7.7 g/dL (6.6-8.7)
--- NOTE | 2020-12-16 15:28 | ONC FU_ITS ---
Dr. Ward follow up note Patient: Alivia Tony Unit #: [id number]: 2000 Dicatated By: Jaydon Ward M.D.Date of Visit:Dec 15, 2020 Onc Med Follow-up/Prog Note History of Present Illness: Ms. Tony is a 20-year-old female with history of progressive weakness and fatigue, shortness of breath and palpitation on exertion. She went to [facility] on November 29, 2019 and found to have hemoglobin around 6 g and she was given unit of packed RBC with that her hemoglobin improved to 7.5 g. As per patient before this admission she was not aware of anemia in fact last year in December 2018 she went to [facility] with bleeding per rectum at that time her hemoglobin was normal and she was treated conservatively. And since then she has been having dark-colored stools and off and on rectal bleed and also having irregular and off and on heavy menses and recently also start taking nonsteroidal for costochondritis. Chest x-ray showed no abnormality except slight left hemidiaphragm elevation for which she underwent CT scan of abdomen and pelvis on November 29, 2019 which showed peripheral enhancing right ovarian hemorrhagic or corpus luteum cyst measuring 1.6 x 1.9 cm with surrounding fluid. No other abnormality seen-except mild diffuse fatty infiltration of the liver In review of her history, Ms Tony denies any peripheral numbness, denies any jaundice, denies any weight loss, denies any abdominal pain, denies any history of gastric surgery, denies any hematuria, denies any night sweats, denies any weight loss. Because of history of dark-colored stools and bleeding per rectum, GI was consulted, Dr. Desai Performed colonoscopy on December 25, 2019 which showed in the mid transverse colon, completely obstructing large size, fungating, friable, malignant appearing circumferential, villous 3 cm x 6 cm mass and mass was not bleeding but biopsy was obtained which confirmed moderately differentiated invasive adenocarcinoma Underwent left hemicolectomy on January 06, 2020, final pathology report showed poorly differentiated adenocarcinoma of colon with extension into pericolonic fat. Cauterized tumor at inked peripheral resection margin with no definite serosa on dissection. pT4a (tumor invades visceral peritoneum) No vascular or perineural invasion seen. 26 benign lymph nodes with reactive changes. pN0 , Stage IIb. On May 30, 2020 patient went to [facility] with left flank pain CT scan of abdomen showed mass in the left upper quadrant 8 x 4.6 cm invading adjacent peritoneum and abdominal wall. Abuts wall of left descending colon with loss of fat plane, displacing the colon medially without obstruction and CT scan of chest showed 4 mm groundglass opacity in right upper lobe, CEA was 47.2 patient was referred to [facility] for evaluation and there she was treated with combined chemoradiation started on June 25, 2020, her CEA was 82.5 and she completed her combined chemo radiation therapy with oral Xeloda on August 10, 2020. And her CEA decreased to 27.2. Patient was evaluated by Dr. Russ who recommended FOLFOX or Capox for 4 months followed by evaluation at [facility]. Ms Tony was encouraged to pursue chmotherapy for 4 months post surgery and began her first cycle of CAPOX on 09/22/2020. 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 She reported several neuropathy in her lips and felt like she was having trouble swallowing. Her second dose of oxaliplatin given on October 13, 2020 was reduced by 20%, as per patient she still had choking sensation but no visual disturbance like happened with previous dose and this choking sensation lasted for 1 week compared to week and a half before. Her oxaliplatin dose was further reduced by 10% on November 03, 2020 to minimize laryngospasm/neuropathy due to oxaliplatin And was also given mag sulfate and Ativan, with that as per patient she did not have choking sensation with her psychosocial Capeox but next day she developed mild choking sensation but no dysphagia no tongue or lips numbness and it lasted for 4- 5 days and resolved on its own Underwent CT scan of chest abdomen pelvis on October 21, 2020 which showed complete remission of left upper quadrant mass invading L 10th rib, minimal residual soft tissue thickening at the site. 2 discrete rounded lesions with central fat attenuation, likely fat necrosis. No distant metastatic disease Came for follow-up, denies any specific complaints, no fever chills, no nausea or vomiting, no diarrhea constipation as per patient with last chemotherapy, she still has mild symptom lasted for 3 to 4 days otherwise tolerated oxaliplatin/hold Xeloda well, she completed her oral Xeloda on December 07, 2020, now going back to [facility] for evaluation on December 16, 2020. Medications: There is no information available for Current Medications - Patient. Allergies: No Known Allergies. Review of Systems: Review of Systems is not available for this patient. Vital Signs: Performed on Dec 15, 2020 12:23 Height - 69.00 in Weight - 251.8 lbs (HIGH) BSA - 2.28 sq.m BMI - 37.18 (HIGH) Temperature - 96.1 F (LOW) Pulse - 101 /min (HIGH) Respiration - 18 /min BP - 109/73 mm(hg) O2 Sat - 98 % Pain - 0 Fatigue - 0 Performance Status: 0 - Fully active, able to carry on all predisease activities without restrictions. (ECOG) Physical Examination: ENMT - No mouth sores, no thrush, no jaundice, Respiratory - Lungs are clear to auscultation, Cardiovascular - Regular rate and rhythm of heart, Abdomen - Soft, bowel sounds present, Extremities - No visible edema or rash. Lab/Imaging: Test performed on Oct 13, 2020 08:45 Sodium 139 mmol/L Potassium 4.0 mmol/L Chloride 103 mmol/L CO2 26 mmol/L Anion Gap 14.0 BUN 8 mg/dL Creatinine 0.5 mg/dL Cr Clearance (Est) 319.2300 mL/min eGFR 154.3 mL/min Glucose 122 mg/dL Osmolality - Calculated 288 mOsm/kg Calcium 9.4 mg/dL Protein, Total 7.6 g/dL Albumin 4.3 g/dL Globulin 3.3 g/dL Bilirubin, Total 0.5 mg/dL ALT (SGPT) 41 U/L AST (SGOT) 24 U/L Alkaline Phosphatase 59 IU/L WBC 6.6 10 3/uL RBC 4.36 10 6/uL HGB 13.8 g/dL HCT 42.4 % MCV 97.2 fL MCH 31.7 pg MCHC 32.5 g/dL RDW 14.6 % Platelet Count 302 10 3/cmm MPV 8.6 fL Neutrophils 4.62 10 3/uL Lymphocytes 0.7 10 3/uL Monocytes 0.7 10 3/uL Eosinophils 0.4 10 3/uL Basophils 0.1 10 3/uL Neutrophil % 70.6 % Lymphocyte % 10.7 % Monocyte % 10.8 % Eosinophil % 5.6 % Basophils % 0.9 % NRBC % 0 % Impression: Moderately differentiated invasive adenocarcinoma involving mid transverse colon polyp colonoscopy done on December 25, 2019, Status post left hemicolectomy done on January 06, 2020, final pathology report showed poorly differentiated adenocarcinoma, tumor invades through muscularis propria into pericolonic fat with circumferential or radial margins involved but proximal and distal margins were clear. pT4a No lymphovascular/perineural invasion seen. 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 Follow-up CT scan of chest abdomen pelvis done on April 28, 2020 at [facility] showed loss of plane between tumor in the descending colon and left abdominal wall and on May 30, 2020 patient went to ER with left flank pain CT scan of abdomen pelvis done showed 8 x 4.6 cm mass in left upper quadrant invading adjacent peritoneum and abdominal wall. Abuts wall of left descending colon with loss of fat plane. Displacing colon medially without obstruction. And 4 mm groundglass opacity in the right upper lobe of lung, CEA was 47.2, patient was started on combined chemoradiation with oral Xeloda to the left upper quadrant abdominal mass on June 25, 2020 and completed on August 10, 2020. CT ssan of abdomen shows mild diffuse fatty infiltration of the liver otherwise no other abnormality seen except peripheral enhancing right ovarian hemorrhagic or corpus luteum cyst measuring 1.9 x 1.6 cm iron deficiency anemia probably multifactorial including chronic blood loss due to heavy menses or off and on GI bleeding From newly diagnosed colon cancer other possibility could be malabsorption. Generalized weakness fatigue, dyspnea on exertion due to severe iron deficiency anemia diagnosed on November 29, 2019 with a hemoglobin around 6 g status post 1 unit of packed RBC. She did take oral iron twice a day but was given 2 doses on Injectafer on 01/17/2020 and 01/24/2020. Right ovarian hemorrhagic cyst,Seen by [employer], Dr. Rivera and no work-up rather observation recommended Plan: Discussed with patient regarding her labs white blood count 7.3 hemoglobin 13.8 hematocrit 41.2 platelets 355,000 CMP within normal limits Clinically, patient doing well, tolerating systemic therapy with oxaliplatin/or his daughter well, patient has completed her last cycle with oral Xeloda on December 07, 2020, follow-up lab work-up is within normal range, now patient is scheduled to go back to [facility] on December 16, 2020 for evaluation and then she will return to clinic in 2 weeks, at that time we will discuss with her regarding further planning, as per recommendations from [facility]. Signed By: Jaydon Ward M.D. <<Signature on File>>
== END 2021-01-06 23:59 | disposition home or self-care (01) ==
LOC: ONCMED 05:34
PROVIDERS: PCP Family Medicine; Visit Provider Internal Medicine Hematology & Oncology
DX: C18.4 Malignant neoplasm of transverse colon (principal); K63.5 Polyp of colon; K76.0 Fatty (change of) liver, not elsewhere classified; D50.0 Iron deficiency anemia secondary to blood loss (chronic); N92.0 Excessive and frequent menstruation with regular cycle; K90.9 Intestinal malabsorption, unspecified; N83.201 Unspecified ovarian cyst, right side; Z79.899 Other long term (current) drug therapy; Z92.21 Personal history of antineoplastic chemotherapy; Z85.43 Personal history of malignant neoplasm of ovary
CPT/HCPCS: 36591; 80053; 85025; 99214

== ENCOUNTER → 2021-06-24 12:23 | Outpatient (BNVA) | payer MEDICAID, SELFPAY | PROVIDERS: PCP Family Medicine; Visit Provider Orthopaedic Surgery Hand Surgery | DX: Z01.812 Encounter for preprocedural laboratory examination (principal); Z20.822 Contact with and (suspected) exposure to COVID-19 | CPT/HCPCS: 87635 ==

== ENCOUNTER 2021-12-02 23:34 | Emergency (ER) | payer MEDICAID, SELFPAY ==
[2021-12-02 23:41] VITALS: BP 129/90; PULSE 112; RESP 18; TEMP 36.6; O2SAT 96; BMI 38.1
[2021-12-02 23:48] VITALS: BP 132/82; PULSE 111; RESP 16; TEMP 36.5; O2SAT 97
--- NOTE | 2021-12-02 23:56 | W.ED.NAVMDI ---
HPI - Nausea/Vomiting/Diarrhea General: Chief complaint: Nausea/Vomiting/Diarrhea Stated complaint: N/V Time Seen by Provider: 12/02/21 23:52 Source: patient Mode of arrival: ambulatory Limitations: no limitations History of Present Illness: 21-year-old female who states that throughout the day she had nausea vomiting diarrhea. 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 States she has had multiple episodes of vomiting has not been able to tolerate any p.o. she denies abdominal pain denies any fever denies any blood in her stool or vomit. She denies any worsening improving factors. Associated nausea: Yes Associated symtoms: Reports nausea; Denies chest pain, dysuria or headache(s) Review of Systems Const: Denies: fever(s), chills, body aches or change in appetite Eyes: Denies: blurry vision or eye discomfort ENMT: Denies: throat pain or dental pain Card: Denies: chest pain Resp: Denies: dyspnea GI: Reports: nausea, vomiting and diarrhea : Denies: dysuria Musc: Denies: neck pain or back pain Skin/Breast: Denies: rash Neuro: Denies: headache(s) Psych: Denies: depression Edgardo/Lymph: Denies: easy bruising All/Imm: Denies: urticaria PFSH ED PFSH: Medical History Iron deficiency anemia Surgical History History of wisdom tooth extraction Status post left hemicolectomy Family History Mother Cancer Ovarian Father CAD (coronary artery disease) Sister Anemia Denies family history of Anesthesia complication Bleeding disorder Social History Smoking and tobacco status: never smoked Alcohol intake: never Household members: family Marital status: Single Current occupational status: unemployed History of recent travel: Yes Details: Up state by [place] Out of state: No Out of country: No Female Reproductive History: Date of last menstrual period: 06/01/20 Physical Exam Const: COMMON NORMALS: no acute distress, patient oriented x3 and healthy appearing HENMT: COMMON NORMALS: normocephalic and atraumatic HEAD & SCALP: normocephalic and atraumatic Eye: COMMON NORMALS: Equal, round and reactive pupils present and EOMs intact bilaterally PUPIL: Yes Equal, round and reactive pupils present Neck/C-Spine: COMMON NORMALS: full ROM and supple Chest: COMMONS NORMALS: normal inspection of the chest and normal palpation of entire chest wall Resp: COMMON NORMALS: normal respiratory effort, No retractions, No use of accessory muscles and clear to auscultation bilaterally AUSCULTATION: clear to auscultation bilaterally Cardio: COMMON NORMALS: regular rhythm and No murmurs present (Cardio) RATE: tachycardic RHYTHM: regular rhythm GI: COMMON NORMALS: Normal to inspection, nondistended, normoactive bowel sounds present, Soft to palpation, non-tender and no masses PALPATION: Yes Soft to palpation Extremity: COMMON NORMALS: normal to inspection and full ROM Neuro: COMMON NORMALS: patient oriented x3, moves all extremities and no focal motor deficits Psych: COMMON NORMALS: mental status grossly normal, Normal thought process present and cooperative THOUGHT PROCESS: Normal thought process present Skin: COMMON NORMALS: no rashes or lesions noted and no wounds GENERAL SKIN EXAM: no rashes or lesions noted Course Vital Signs: Vital signs: Vital Signs Temperature 97.7 F 12/02/21 23:48 Pulse Rate 99 12/03/21 02:12 Respiratory Rate 16 12/03/21 02:12 Blood Pressure 136/80 12/03/21 02:12 Pulse Oximetry 97 12/03/21 02:12 MDM - Nausea/Vomiting/Diarrhea Medical Decision Making Patient presents with vomiting is much improved here after Zofran she is able to tolerate p.o. CT scan is normal has a slight leukocytosis likely from stress-induced vomiting. She is stable for discharge we will prescribe her Zofran she is to follow-up with her PCP and return if worsening. Lab Data : 12/03/21 00:25 12/03/21 01:29 Radiology Impressions Abdomen/Pelvis CT 12/03/21 00:38 IMPRESSION: 1. Status post colectomy with ileocolic anastomosis within the rectosigmoid region. 2. Nondilated small bowel loops containing fluid and some air-fluid levels could represent mild ileus. 3. Fatty infiltration of the liver Laboratory Results WBC 15.6 10^3/uL (4.0-10.0) H 12/03/21 00:25 RBC 4.93 10^6/uL (4.1-5.3) 12/03/21 00:25 Hgb 14.5 g/dL (11.5-15.3) 12/03/21 00:25 Hct 45.2 % (37.0-47.0) 12/03/21 00:25 MCV 91.7 fl (81-99) 12/03/21 00:25 MCH 29.4 pg (28.0-34.0) 12/03/21 00:25 MCHC 32.1 g/dL (30.0-36.0) 12/03/21 00:25 RDW 12.4 % (12.1-15.1) 12/03/21 00:25 Plt Count 397 10^3/cmm (130-400) 12/03/21 00:25 MPV 9.2 fL (7.4-10.4) 12/03/21 00:25 Neut % (Auto) 82.3 % 12/03/21 00:25 Lymph % (Auto) 7.6 % 12/03/21 00:25 Dickens % (Auto) 8.5 % 12/03/21 00:25 Eos % (Auto) 1.0 % 12/03/21 00:25 Baso % (Auto) 0.3 % 12/03/21 00:25 Neut # (Auto) 12.84 10^3/uL (1.8-7.7) H 12/03/21 00:25 Lymph # (Auto) 1.2 10^3/uL (0.8-4.8) 12/03/21 00:25 Dickens # (Auto) 1.3 10^3/uL (0.2-0.9) H 12/03/21 00:25 Eos # (Auto) 0.2 10^3/uL (0.0-0.8) 12/03/21 00:25 Baso # (Auto) 0.1 10^3/uL (0.0-0.1) 12/03/21 00:25 Nucleated RBC % (auto) 0 % 12/03/21 00:25 Nucleated RBCs # 0.0 /100WBC 12/03/21 00:25 Sodium 138 mmol/L (136-145) 12/03/21 01:29 Potassium 4.2 mmol/L (3.5-5.1) 12/03/21 01: Chloride 102 mmol/L (98-107) 12/03/21 01: Carbon Dioxide 26 mmol/L (22-29) 12/03/21: Anion Gap 14.2 (5-19) 12/03/21: BUN 11 mg/dL (6-20) 12/03/21 01: Creatinine 0.6 mg/dL (0.5-0.9) 12/03/21 01: GFR Calculation 123.9 mL/min (90-130) 12/03/21: Glucose 137 mg/dL (65-115) H 12/03/21: Calculated Osmolality 288 mOsm/kg (285-295) 12/03/21: Calcium 8.9 mg/dL (8.5-10.5) 12/03/21: Total Bilirubin 0.6 mg/dL (0.15-1.2) 12/03/21 01: AST 21 U/L (0-32) 12/03/21: ALT 32 U/L (0-33) 12/03/21: Alkaline Phosphatase 55 IU/L (35-105) 12/03/21 01: Total Protein 7.1 g/dL (6.6-8.7) 12/03/21: Albumin 4.1 g/dL (3.5-5.2) 12/03/21: Globulin 3.0 g/dL (1.3-4.6) 12/03/21 01: Lipase 35 U/L (13-60) 12/03/21 01:29 Urine Color Yellow (Yellow) 12/03/21 00:38 Urine Appearance Cloudy (CLEAR) 12/03/21 00:38 Urine pH 5 (5-7) 12/03/21 00:38 Ur Specific [place] 1.025 (1.005-1.030) 12/03/21 00:38 Urine Protein Trace (Negative) 12/03/21 00: Urine Glucose (UA) Norm (Normal) 12/03/21 00: Urine Ketones 1+ (Negative) H 12/03/21 00:38 Urine Blood Neg (Negative) 12/03/21 00:38 Urine Nitrate Negative (Negative) 12/03/21 00:38 Urine Bilirubin Neg (Negative) 12/03/21 00:38 Urine Urobilinogen 1 mg/dL (Negative) H 12/03/21 00:38 Ur Leukocyte Esterase Negative (Negative) 12/03/21 00:38 Urine RBC 0-4 /hpf (0-2) H 12/03/21 00:38 Urine WBC 0-4 /hpf (0-5) H 12/03/21 00:38 Ur Squamous Epith Cells 15-25 /hpf (0-5) H 12/03/21 00:38 Amorphous Sediment Not Reportable 12/03/21 00:38 Urine Bacteria 2+ /hpf (NONE) H 12/03/21 00:38 Urine Mucus 3+ /hpf 12/03/21 00:38 Discharge Plan Discharge Patient Disposition: Home Clinical Impression: Vomiting Condition: Stable Prescriptions: New ondansetron 4 mg tablet,disintegrating 4 mg PO Q6H PRN (Reason: nausea and vomiting) Qty: 14 0RF No Action esterified estrogens 2.5 mg tablet 2.5 mg PO DAILY 0RF gabapentin 100 mg capsule 100 mg PO DAILY 0RF acetaminophen [Tylenol] 325 mg Tablet 325 mg PO QID PRN (Reason: PAIN/HEADACHE) 0RF Discharge Orders: Discharge ED (Routine); Ordered 12/03/21 Ordered By: Yesy Stafford Referrals: Rob Benito MD [Primary Care Provider] - 1-3 days Discharge Diet: Advance as tolerated Discharge Activity: Resume usual activity Patient Instructions: Acute Nausea and Vomiting (ED) Coding Level of Care Code ED [employer] for Chg Fwd Exam Comprehensive
[2021-12-03] MEDS: ondansetron 2 mg/ML SDV 2 mL 4 MG IVP (00:23)
[2021-12-03] MEDS: sodium chloride 0.9% 1,000 ML 999 ML IV (00:25)
[2021-12-03 00:29] LABS: Basophils # 0.1 10^3/uL (0.0-0.1); Basophils % 0.3 %; Eosinophils # 0.2 10^3/uL (0.0-0.8); Hematocrit 45.2 % (37.0-47.0); Hemoglobin 14.5 g/dL (11.5-15.3); Lymphocytes # 1.2 10^3/uL (0.8-4.8); Lymphocytes % 7.6 %; Mean Corpuscular HGB Conc 32.1 g/dL (30.0-36.0); Mean Corpuscular Hemoglobin 29.4 pg (28.0-34.0); Mean Corpuscular Volume 91.7 fl (81-99); Mean Platelet Volume 9.2 fL (7.4-10.4); Monocytes # 1.3 10^3/uL (0.2-0.9); Monocytes % 8.5 %; Neutrophils # 12.84 10^3/uL (1.8-7.7); Neutrophils % 82.3 %; Nucleated Red Blood Cells % 0 %; Platelet Count 397 10^3/cmm (130-400); Red Blood Count 4.93 10^6/uL (4.1-5.3); Red Cell Distribution Width 12.4 % (12.1-15.1); White Blood Count 15.6 10^3/uL (4.0-10.0)
--- NOTE | 2021-12-03 00:38 | CTR_ITS ---
PROCEDURE INFORMATION: Exam: CT Abdomen And Pelvis Without Contrast Exam date and time: 12/03/2021 1:47 AM Age: 21 years old Clinical indication: Nausea and vomiting; Prior surgery; Surgery type: Colectomy. Hysterectomy. Patient HX: C/O n/v/d since yesterday. Elevated wbc. History of colon cancer. ; Additional info: Abd pain TECHNIQUE: Imaging protocol: Computed tomography of the abdomen and pelvis without contrast. Radiation optimization: All CT scans at this facility use at least one of these dose optimization techniques: automated exposure control; mA and/or kV adjustment per patient size (includes targeted exams where dose is matched to clinical indication); or iterative reconstruction. COMPARISON: CT abdomen pelvis w con* [id number] 05/29/2020 4:06 PM RADIATION DOSE METRICS: Total DLP (mGy-cm): 1822.12 FINDINGS: Liver: There is hypoattenuation of the hepatic parenchyma compatible with fatty infiltration. Gallbladder and bile ducts: Normal. No calcified stones. No ductal dilation. Pancreas: Normal. No ductal dilation. Spleen: Normal. No splenomegaly. Adrenal glands: Normal. No mass. Kidneys and ureters: Normal. No hydronephrosis. Stomach and bowel: Nondilated small bowel loops containing fluid and some air-fluid levels could represent mild ileus. Status post colectomy with ileocolic anastomosis seen within the rectosigmoid region. Appendix: No evidence of appendicitis. Intraperitoneal space: Unremarkable. No free air. No significant fluid collection. Vasculature: Unremarkable. No abdominal aortic aneurysm. Lymph nodes: Unremarkable. No enlarged lymph nodes. Urinary bladder: Unremarkable as visualized. Reproductive: Status post hysterectomy. Bones/joints: Unremarkable. No acute fracture. Soft tissues: Unremarkable. CT/CT abdomen pelvis con [id number] IMPRESSION: 1. Status post colectomy with ileocolic anastomosis within the rectosigmoid region. 2. Nondilated small bowel loops containing fluid and some air-fluid levels could represent mild ileus. 3. Fatty infiltration of the liver
[2021-12-03 00:48] VITALS: BP 111/70; PULSE 103; RESP 16; O2SAT 96
[2021-12-03 01:03] LABS: Add Urine Microscopic? YES; Bilirubin Urine Neg (Negative); Blood Urine Neg (Negative); Glucose Urine UA Norm (Normal); Ketones Urine 1+ (Negative); Leukocyte Esterase Urine Negative (Negative); Nitrate Urine Negative (Negative); Protein Urine Trace (Negative); Specific Gravity, Urine 1.025 (1.005-1.030); Urine Appearance Cloudy (CLEAR); Urine Color Yellow (Yellow); Urobilinogen Urine 1 mg/dL (Negative); pH Urine 5 (5-7)
[2021-12-03 01:04] LABS: Add Urine Culture? No; Bacteria Urine 2+ /hpf; Mucus Urine 3+ /hpf; RBC Urine 0-4 /hpf (0-2); Squamous Epithelial Cell Urine 15-25 /hpf (0-5); WBC Urine 0-4 /hpf (0-5)
[2021-12-03 01:40] VITALS: BP 121/66; PULSE 101; RESP 16; O2SAT 97
[2021-12-03 01:48] LABS: Alanine Aminotransferase 32 U/L (0-33); Albumin Level 4.1 g/dL (3.5-5.2); Alkaline Phosphatase 55 IU/L (35-105); Anion Gap 14.2 (5-19); Aspartate Amino Transferase 21 U/L (0-32); Blood Urea Nitrogen 11 mg/dL (6-20); Calcium 8.9 mg/dL (8.5-10.5); Carbon Dioxide 26 mmol/L (22-29); Chloride 102 mmol/L (98-107); Glomerular Filtration Rate 123.9 mL/min (90-130); Glucose 137 mg/dL (65-115); Lipase 35 U/L (13-60); Osmolality Calculated 288 mOsm/kg (285-295); Potassium 4.2 mmol/L (3.5-5.1); Sodium 138 mmol/L (136-145); Total Bilirubin 0.6 mg/dL (0.15-1.2); Total Protein 7.1 g/dL (6.6-8.7)
[2021-12-03 02:12] VITALS: BP 136/80; PULSE 99; RESP 16; O2SAT 97
[2021-12-03 02:38] VITALS: BP 123/78; PULSE 100; RESP 16; O2SAT 98
[2021-12-03 02:40] VITALS: BP 123/78; PULSE 100; RESP 16; O2SAT 98
== END 2021-12-03 02:43 | disposition home or self-care (01) ==
PROVIDERS: Emergency Provider Emergency Medicine; PCP Family Medicine
DX: R11.10 Vomiting, unspecified (principal)
CPT/HCPCS: 74176; 80053; 81001; 83690; 85025; 96361; 96374; 99284; J2405; J7030